=== PATIENT | female | born 1960 | race Hispanic/Latino ===

== ENCOUNTER 2016-06-08 08:41 | Emergency (ER) | payer OTHER ==
[~2016-06-08 08:41] MED LIST: /ACETCOD2T PO; /INSU7030 SC; ACET50TA PO; ALBU83IN INH; ALLE25CA OR; APIDINJ SC; ATIV0.5T OR; CLIN300C PO; COLA50CA3 PO; COMBVENT INH; CYCL10TA PO; DOXY100C PO; FIOR1CAP PO; FIORICET OR; HYDR10T PO; INSUH10VL SC; INSULANT SC; LEVA750T PO; METF500T4 OR; NORCOBULK PO; PAXI20TA OR; PERC7.5T12 PO; PRED10TA PO; PRED20TA PO; REME15TA PO; SING10TA32 PO; TUSS1CAP5 PO; TYLE325T5 PO; XOPE0.632 IN; XOPEAER INH; ZANT150T OR; ZYRT10CA PO; atarax PO
[2016-06-08] MEDS ORDERED: METOCLOPRAMIDE INJ 10MG/2ML VIAL (J2765) As Ordered ONE (09:33)
[2016-06-08] MEDS ORDERED: diphenhydrAMINE INJ 50MG/ML VIAL (J1200) As Ordered ONE (09:33)
--- NOTE | 2016-06-08 10:32 | EDDOCDS ---
Physician Documentation [facility] Name: Gill Tuttle Age: 55 yrs Sex: Female : 1960 Arrival Date: 06/08/2016 Time: 08:41 Bed I5 / M5 Private MD: Portillo Laguna MD Disposition: 06/08/16 10:26 Patient has left against medical advice. 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 - Patients states they are going to Home/Self Care. - Condition is Stable. - Discharge Instructions: AMA, General Headache Without Cause, [id number]. Medication Reconciliation, Local Pharmacy Hours form. Follow up: Portillo Laguna; When: Call to arrange an appointment; Reason: Further diagnostic work-up, Recheck today's complaints, Continuance of care. - Problem is an acute exacerbation. - Symptoms are unchanged. Historical: - Allergies: Aspirin (Rash); Augmentin (Hives); Biaxin (Upset stomach); D.H.E.45 (Rash); Depakote (Hives); Dilaudid (anxious); Epinephrine (irregular heart beat); Imitrex (Hives); IV Dye (Hives); Lipitor (Pancreatitis); PENICILLINS (Hives); sudaphed (palpitation); Toradol (Hives); Tramadol HCl (Hives); Zinc Oxide (Hives); Reglan (vertigo); - Home Meds: 1. apedra sliding scale Unknown before meals 8 units at 0430 2. Atarax 25 mg Oral tab tid prn (Last dose: 06/08/2016 04:30) 3. Benadryl 25 mg Oral cap as needed 4. Combivent 18-103 mcg/actuation Inhl aero 2 puffs twice a day 5. Lantus 38 units Sub-Q nightly 6. ProAir HFA 90 mcg/actuation inhalation HFAA 2 puffs prn 7. Xanax 0.25 mg Oral tab bedtime and as needed (Last dose: Unknown) 8. Zofran (as hydrochloride) 4 mg Oral tab every 8 hours prn (Last dose: 06/08/2016 04:30) 9. Tylenol 325 mg Oral tab 1 tab prn (Last dose: 06/08/2016 04:30) 10. Restasis 0.05 % ophthalmic dpet 1 drop 2 times per day - PMHx: Asthma; Diabetes - IDDM: controlled; Migraine Headaches; Gallstone Pancreatitis; - PSHx: ; Tubal ligation; Cholecystectomy; Biopsy, Breast- Left; - Social history: Smoking status: Patient states former smoker of tobacco. No barriers to communication noted, The patient speaks fluent Scottish. - Family history: Not pertinent. - : The pt / caregiver states he / she is not on anticoagulants. Home medication list is obtained from the patient. - Exposure Risk Screening:: None identified. 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 3 in. (160.02 cm) (R); Pain 8/10; 08:58 Body Mass Index 22.14 (56.70 kg, 160.02 cm) jjr MDM: 09:25 Financial registration complete. lg 09:28 Metoclopramide 10 mg IM once ordered. btw 09:28 diphenhydrAMINE 50 mg IM once ordered. btw Administered Medications: 09:36 Not Given (Patient Refused): Metoclopramide 10 mg IM once srm 10:28 Not Given (per PA): diphenhydrAMINE 50 mg IM once srm Signatures: Josi Sharif RN RN srm Ganter, LoriLee, Claudio Snyder lg Zahra Ma RN RN jjr Wolfenden, Brandon, CINTIA PA btw MTDD
--- NOTE | 2016-06-08 10:32 | EDDOCDS ---
Nurse's Notes [facility] Name: Gill Tuttle Age: 55 yrs Sex: Female : 1960 Arrival Date: 06/08/2016 Time: 08:41 Bed I5 / M5 Private MD: Portillo Laguna MD Diagnosis: Other headache syndromes-chronic, without neurological deficits Presentation: 06/08 08:54 Presenting complaint: Patient states: QUINTERO increasing in severity over past 2 days. This jjr patient has no additional risk factors. Adult Sepsis Screening: The patient does not have new or worsening altered mentation. Patient's respiratory rate is less than 22. Systolic blood pressure is greater than 100. Patient has a qSOFA score of 0- Negative Sepsis Screen. Suicide/Homicide risk assessment- the patient denies having any suicidal and/or homicidal ideations and does not present with any other emotional, behavioral or mental health complaints. Status: The patient is a dependent. Transition of care: patient was not received from another setting of care. 08:54 Acuity: KELLY Level 3 jjr 08:54 Method Of Arrival: Walkin/Carried/Asstd jjr Triage Assessment: 09:01 Headache History: This patient has a history of headaches and the character of this jjr headache is like all previous headaches. General: Appears in no apparent distress. Pain: Pain currently is 8 out of 10 on a pain scale. Pain began 2-3 days ago Also complains of nausea, photophobia. Pain: Location: right side of the back of head, right temporal area and right occipital area. HIV screening NA for this visit Offered previously. Neurological: No deficits noted. Reports headache. 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 apedra sliding scale Unknown before meals 8 units at 0430 2. Atarax 25 mg Oral tab tid prn (Last dose: 06/08/2016 04:30) 3. Benadryl 25 mg Oral cap as needed 4. Combivent 18-103 mcg/actuation Inhl aero 2 puffs twice a day 5. Lantus 38 units Sub-Q nightly 6. ProAir HFA 90 mcg/actuation inhalation HFAA 2 puffs prn 7. Xanax 0.25 mg Oral tab bedtime and as needed (Last dose: Unknown) 8. Zofran (as hydrochloride) 4 mg Oral tab every 8 hours prn (Last dose: 06/08/2016 04:30) 9. Tylenol 325 mg Oral tab 1 tab prn (Last dose: 06/08/2016 04:30) 10. Restasis 0.05 % ophthalmic dpet 1 drop 2 times per day - PMHx: Asthma; Diabetes - IDDM: controlled; Migraine Headaches; Gallstone Pancreatitis; - PSHx: ; Tubal ligation; Cholecystectomy; Biopsy, Breast- Left; - Social history: Smoking status: Patient states former smoker of tobacco. No barriers to communication noted, The patient speaks fluent Tamazight. - Family history: Not pertinent. - : The pt / caregiver states he / she is not on anticoagulants. Home medication list is obtained from the patient. - Exposure Risk Screening:: None identified. Assessment: 09:37 General: Appears in no apparent distress, Behavior is appropriate for age, cooperative. srm General: pt informs nurse that she cant take reglan due to it gives her vertigo. B Braulio CHAMBERLAIN aware. states she can take fiorcet - CINTIA aware. Neurological: Level of Consciousness is awake, alert, Oriented to person, place, time. Respiratory: No deficits noted. GI: No deficits noted. 09:47 General: per PA hold benadryl until he speaks with PMD. srm 10:28 General: pt signed out AMA- pt states i dont know why we have to consult with him ( her srm PMD) because he never wants to give her anything. pt. angry when leaving ED. with pt. Vital Signs: 08:58 BP 132 / 88; Pulse 96; Resp 18; Temp 97.8(O); Pulse Ox 100% on R/A; Weight 56.7 kg (R); jjr Height 5 ft. 3 in. (160.02 cm) (R); Pain 8/10; 08:58 Body Mass Index 22.14 (56.70 kg, 160.02 cm) [facility] Vitals: 08:58 Log In Time: June 08, 2016 at 08:41. jr ED Course: 08:43 Patient visited by Jessika Diaz Reg. lg 08:43 Portillo Laguna is Private Physician. lg 08:43 Patient moved to Waiting lg 08:55 Triage Initiated jjr 09:02 Patient moved to I5 / M5 jjr 09:21 Kenton Ramsey PA is PHCP. btw 09:21 Shweta Presley MD is Attending Physician. btw 09:21 Patient visited by Kenton Ramsey PA. btw 09:39 Patient visited by Josi Sharif RN. srm 09:42 Patient visited by Josi Sharif, SOLO. srm 10:24 Portillo Laguna is Referral Physician. btw 10:30 The patient / caregiver is instructed regarding the plan of care and ED course. srm Accompanied by Significant Other, Patient has correct armband on for positive identification. 10:30 No IV's were initiated during this patient's visit. No procedures done that require srm assistance. Administered Medications: 09:36 Not Given (Patient Refused): Metoclopramide 10 mg IM once srm 10:28 Not Given (per PA): diphenhydrAMINE 50 mg IM once srm Order Results: There are currently no results for this order. Outcome: 10:26 Patient left against medical advice. btw 10:30 Discharge Assessment: Patient awake, alert and oriented x 3. No cognitive and/or srm functional deficits noted. Patient verbalized understanding of disposition instructions. patient administered narcotics - no. The following High Risk Discharge criteria are identified: Yes, pt left AMA while waiting for her PMD to call PA. The patient is leaving AMA: AMA form signed, Notification of AMA status is made to the charge nurse, the marriage and family social worker, the ED attending physician. Condition: unchanged. No special radiology studies were completed. Property sent home with patient. 10:31 Patient left the ED. srm Signatures: Josi Sharif, RN Jessika Seo, Zahra Oviedo lg, RN RN Kenton Molina PA PA btw MTDD
--- NOTE | 2016-06-10 11:32 | EDDOCDS ---
Nurse's Notes [facility] Name: Gill Tuttle Age: 55 yrs Sex: Female : 1960 Arrival Date: 06/08/2016 Time: 08:41 Bed I5 / M5 Private MD: Portillo Laguna MD Diagnosis: Other headache syndromes-chronic, without neurological deficits Presentation: 06/08 08:54 Presenting complaint: Patient states: QUINTERO increasing in severity over past 2 days. This jjr patient has no additional risk factors. Adult Sepsis Screening: The patient does not have new or worsening altered mentation. Patient's respiratory rate is less than 22. Systolic blood pressure is greater than 100. Patient has a qSOFA score of 0- Negative Sepsis Screen. Suicide/Homicide risk assessment- the patient denies having any suicidal and/or homicidal ideations and does not present with any other emotional, behavioral or mental health complaints. Status: The patient is a dependent. Transition of care: patient was not received from another setting of care. 08:54 Acuity: KELLY Level 3 jjr 08:54 Method Of Arrival: Walkin/Carried/Asstd jjr Triage Assessment: 09:01 Headache History: This patient has a history of headaches and the character of this jjr headache is like all previous headaches. General: Appears in no apparent distress. Pain: Pain currently is 8 out of 10 on a pain scale. Pain began 2-3 days ago Also complains of nausea, photophobia. Pain: Location: right side of the back of head, right temporal area and right occipital area. HIV screening NA for this visit Offered previously. Neurological: No deficits noted. Reports headache. 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 apedra sliding scale Unknown before meals 8 units at 0430 2. Atarax 25 mg Oral tab tid prn (Last dose: 06/08/2016 04:30) 3. Benadryl 25 mg Oral cap as needed 4. Combivent 18-103 mcg/actuation Inhl aero 2 puffs twice a day 5. Lantus 38 units Sub-Q nightly 6. ProAir HFA 90 mcg/actuation inhalation HFAA 2 puffs prn 7. Xanax 0.25 mg Oral tab bedtime and as needed (Last dose: Unknown) 8. Zofran (as hydrochloride) 4 mg Oral tab every 8 hours prn (Last dose: 06/08/2016 04:30) 9. Tylenol 325 mg Oral tab 1 tab prn (Last dose: 06/08/2016 04:30) 10. Restasis 0.05 % ophthalmic dpet 1 drop 2 times per day - PMHx: Asthma; Diabetes - IDDM: controlled; Migraine Headaches; Gallstone Pancreatitis; - PSHx: ; Tubal ligation; Cholecystectomy; Biopsy, Breast- Left; - Social history: Smoking status: Patient states former smoker of tobacco. No barriers to communication noted, The patient speaks fluent Hebrew. - Family history: Not pertinent. - : The pt / caregiver states he / she is not on anticoagulants. Home medication list is obtained from the patient. - Exposure Risk Screening:: None identified. Assessment: 09:37 General: Appears in no apparent distress, Behavior is appropriate for age, cooperative. srm General: pt informs nurse that she cant take reglan due to it gives her vertigo. B Braulio CHAMBERLAIN aware. states she can take fiorcet - CINTIA aware. Neurological: Level of Consciousness is awake, alert, Oriented to person, place, time. Respiratory: No deficits noted. GI: No deficits noted. 09:47 General: per PA hold benadryl until he speaks with PMD. srm 10:28 General: pt signed out AMA- pt states i dont know why we have to consult with him ( her srm PMD) because he never wants to give her anything. pt. angry when leaving ED. with pt. Social Work Consult: 10:51 LWBS/AMA AMA: Patient is refusing further stabilizing treatment at [facility], although ac offered treatment regardless of method of payment or ability to pay. Patient is aware that this action is being undertaken against the advice of the medical staff at [facility]. Pt. has capacity to understand the potential consequences of this choice. pt did notify ED staff. Patient / guardian did sign Refusal of Services form. Pt left before being seen by PSA. Vital Signs: 08:58 BP 132 / 88; Pulse 96; Resp 18; Temp 97.8(O); Pulse Ox 100% on R/A; Weight 56.7 kg (R); jjr Height 5 ft. 3 in. (160.02 cm) (R); Pain 8/10; 08:58 Body Mass Index 22.14 (56.70 kg, 160.02 cm) [facility] Vitals: 08:58 Log In Time: June 08, 2016 at 08:41. [facility] ED Course: 08:43 Patient visited by Jessika Diaz Reg. lg 08:43 Portillo Laguna is Private Physician. lg 08:43 Patient moved to Waiting lg 08:55 Triage Initiated jjr 09:02 Patient moved to I5 / M5 jjr 09:21 Kenton Ramsey PA is PHCP. btw 09:21 Shweta Presley MD is Attending Physician. btw 09:21 Patient visited by Kenton Ramsey PA. btw 09:39 Patient visited by Josi Sharif, RN. srm 09:42 Patient visited by Josi Sharif, RN. srm 10:24 Portillo Laguna is Referral Physician. btw 10:30 The patient / caregiver is instructed regarding the plan of care and ED course. srm Accompanied by Significant Other, Patient has correct armband on for positive identification. 10:30 No IV's were initiated during this patient's visit. No procedures done that require srm assistance. 10:54 Patient name changed from Gill\S\\S\Parag\S\ to Gill\S\ \S\Parag. EDMS 10:55 [facility] Payment Agreement was scanned into [employer] and attached to record. lg 14:33 Refusal of Services was scanned into [employer] and attached to record. gb 14:34 T-Sheet-- Draft Copy was scanned into [employer] and attached to record. gb Administered Medications: 09:36 Not Given (Patient Refused): Metoclopramide 10 mg IM once srm 10:28 Not Given (per PA): diphenhydrAMINE 50 mg IM once srm Attachments: 14:33 Refusal of Services gb Order Results: There are currently no results for this order. Outcome: 10:26 Patient left against medical advice. btw 10:30 Discharge Assessment: Patient awake, alert and oriented x 3. No cognitive and/or srm functional deficits noted. Patient verbalized understanding of disposition instructions. patient administered narcotics - no. The following High Risk Discharge criteria are identified: Yes, pt left AMA while waiting for her PMD to call PA. The patient is leaving AMA: AMA form signed, Notification of AMA status is made to the charge nurse, the social sciences department chair, the ED attending physician. Condition: unchanged. No special radiology studies were completed. Property sent home with patient. 10:31 Patient left the ED. srm Signatures: Dispatcher [employer] EDMS Josi Sharif, RN RN Mihai Herrera, JOHN PSA Vida Kaye, Reg Reg gb Jessika Diaz, Reg Reg lg Zahra Ma, RN RN Kenton Molina PA PA btw Chart Complete MTDD
--- NOTE | 2016-06-10 11:32 | EDDOCDS ---
Physician Documentation [facility] Name: Gill Tuttle Age: 55 yrs Sex: Female : 1960 Arrival Date: 06/08/2016 Time: 08:41 Bed I5 / M5 Private MD: Portillo Laguna MD Disposition: 06/08/16 10:26 Patient has left against medical advice. 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 - Patients states they are going to Home/Self Care. - Condition is Stable. - Discharge Instructions: AMA, General Headache Without Cause, [id number]. Medication Reconciliation, Local Pharmacy Hours form. Follow up: Portillo Laguna; When: Call to arrange an appointment; Reason: Further diagnostic work-up, Recheck today's complaints, Continuance of care. - Problem is an acute exacerbation. - Symptoms are unchanged. Historical: - Allergies: Aspirin (Rash); Augmentin (Hives); Biaxin (Upset stomach); D.H.E.45 (Rash); Depakote (Hives); Dilaudid (anxious); Epinephrine (irregular heart beat); Imitrex (Hives); IV Dye (Hives); Lipitor (Pancreatitis); PENICILLINS (Hives); sudaphed (palpitation); Toradol (Hives); Tramadol HCl (Hives); Zinc Oxide (Hives); Reglan (vertigo); - Home Meds: 1. apedra sliding scale Unknown before meals 8 units at 0430 2. Atarax 25 mg Oral tab tid prn (Last dose: 06/08/2016 04:30) 3. Benadryl 25 mg Oral cap as needed 4. Combivent 18-103 mcg/actuation Inhl aero 2 puffs twice a day 5. Lantus 38 units Sub-Q nightly 6. ProAir HFA 90 mcg/actuation inhalation HFAA 2 puffs prn 7. Xanax 0.25 mg Oral tab bedtime and as needed (Last dose: Unknown) 8. Zofran (as hydrochloride) 4 mg Oral tab every 8 hours prn (Last dose: 06/08/2016 04:30) 9. Tylenol 325 mg Oral tab 1 tab prn (Last dose: 06/08/2016 04:30) 10. Restasis 0.05 % ophthalmic dpet 1 drop 2 times per day - PMHx: Asthma; Diabetes - IDDM: controlled; Migraine Headaches; Gallstone Pancreatitis; - PSHx: ; Tubal ligation; Cholecystectomy; Biopsy, Breast- Left; - Social history: Smoking status: Patient states former smoker of tobacco. No barriers to communication noted, The patient speaks fluent Macedonian. - Family history: Not pertinent. - : The pt / caregiver states he / she is not on anticoagulants. Home medication list is obtained from the patient. - Exposure Risk Screening:: None identified. 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 3 in. (160.02 cm) (R); Pain 8/10; 08:58 Body Mass Index 22.14 (56.70 kg, 160.02 cm) jjr MDM: 09:25 Financial registration complete. lg 09:28 Metoclopramide 10 mg IM once ordered. btw 09:28 diphenhydrAMINE 50 mg IM once ordered. btw 10:00 Special discussion: I discussed with the patient their frequent requests for pain btw medications. Instructions have been given, that in the best interests of the patient, further pain Rx's must come from the patient's PCP or a custom motorcycle painter. ED course: Discussed with Patient that, given her frequent utilization of the Emergency Department for her chronic pain refusal of my offered treatment and stated allergy to multiple medications, that I wanted to consult with her PCP prior to offering a different solution for her pain. I mentioned to patient that it is important to coordinate care in order to obtain appropriate follow up and to ensure that they deem the care appropriate based on her history and underlying medical problems. Pt verbalized understanding but noted her dissatisfaction with this and stated "My primary doc is an asshole and he never gives me anything. You guys always give me 'the good stuff' and that works." . 10:55 [facility] Payment Agreement was scanned into [employer] and attached to record. lg 14:33 Refusal of Services was scanned into [employer] and attached to record. gb 14:34 T-Sheet-- Draft Copy was scanned into [employer] and attached to record. gb Administered Medications: 09:36 Not Given (Patient Refused): Metoclopramide 10 mg IM once srm 10:28 Not Given (per PA): diphenhydrAMINE 50 mg IM once srm Signatures: Josi Sharif RN RN srm Vida Ramirez, Reg Reg gb Jessika Diaz, Reg Reg lg Zahra Ma RN RN jjr Wolfenden, Brandon, PA PA btw The chart was reviewed and I authenticate all verbal orders and agree with the evaluation and treatment provided.Attachments: 10:55 [facility] Payment Agreement lg 14:34 T-Sheet-- Draft Copy gb Chart Complete MTDD
--- NOTE | 2016-06-10 11:32 | EDDOCDS ---
Physician Documentation [facility] Name: Gill Tuttle Age: 55 yrs Sex: Female : 1960 Arrival Date: 06/08/2016 Time: 08:41 Bed I5 / M5 Private MD: Portillo Laguna MD Disposition: 06/08/16 10:26 Patient has left against medical advice. 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 - Patients states they are going to Home/Self Care. - Condition is Stable. - Discharge Instructions: AMA, General Headache Without Cause, [id number]. Medication Reconciliation, Local Pharmacy Hours form. Follow up: Portillo Laguna; When: Call to arrange an appointment; Reason: Further diagnostic work-up, Recheck today's complaints, Continuance of care. - Problem is an acute exacerbation. - Symptoms are unchanged. Historical: - Allergies: Aspirin (Rash); Augmentin (Hives); Biaxin (Upset stomach); D.H.E.45 (Rash); Depakote (Hives); Dilaudid (anxious); Epinephrine (irregular heart beat); Imitrex (Hives); IV Dye (Hives); Lipitor (Pancreatitis); PENICILLINS (Hives); sudaphed (palpitation); Toradol (Hives); Tramadol HCl (Hives); Zinc Oxide (Hives); Reglan (vertigo); - Home Meds: 1. apedra sliding scale Unknown before meals 8 units at 0430 2. Atarax 25 mg Oral tab tid prn (Last dose: 06/08/2016 04:30) 3. Benadryl 25 mg Oral cap as needed 4. Combivent 18-103 mcg/actuation Inhl aero 2 puffs twice a day 5. Lantus 38 units Sub-Q nightly 6. ProAir HFA 90 mcg/actuation inhalation HFAA 2 puffs prn 7. Xanax 0.25 mg Oral tab bedtime and as needed (Last dose: Unknown) 8. Zofran (as hydrochloride) 4 mg Oral tab every 8 hours prn (Last dose: 06/08/2016 04:30) 9. Tylenol 325 mg Oral tab 1 tab prn (Last dose: 06/08/2016 04:30) 10. Restasis 0.05 % ophthalmic dpet 1 drop 2 times per day - PMHx: Asthma; Diabetes - IDDM: controlled; Migraine Headaches; Gallstone Pancreatitis; - PSHx: ; Tubal ligation; Cholecystectomy; Biopsy, Breast- Left; - Social history: Smoking status: Patient states former smoker of tobacco. No barriers to communication noted, The patient speaks fluent Bruneian. - Family history: Not pertinent. - : The pt / caregiver states he / she is not on anticoagulants. Home medication list is obtained from the patient. - Exposure Risk Screening:: None identified. 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 3 in. (160.02 cm) (R); Pain 8/10; 08:58 Body Mass Index 22.14 (56.70 kg, 160.02 cm) jjr MDM: 09:25 Financial registration complete. lg 09:28 Metoclopramide 10 mg IM once ordered. btw 09:28 diphenhydrAMINE 50 mg IM once ordered. btw 10:00 Special discussion: I discussed with the patient their frequent requests for pain btw medications. Instructions have been given, that in the best interests of the patient, further pain Rx's must come from the patient's PCP or a painter interior finish. ED course: Discussed with Patient that, given her frequent utilization of the Emergency Department for her chronic pain refusal of my offered treatment and stated allergy to multiple medications, that I wanted to consult with her PCP prior to offering a different solution for her pain. I mentioned to patient that it is important to coordinate care in order to obtain appropriate follow up and to ensure that they deem the care appropriate based on her history and underlying medical problems. Pt verbalized understanding but noted her dissatisfaction with this and stated "My primary doc is an asshole and he never gives me anything. You guys always give me 'the good stuff' and that works." . 10:55 [facility] Payment Agreement was scanned into [employer] and attached to record. lg 14:33 Refusal of Services was scanned into [employer] and attached to record. gb 14:34 T-Sheet-- Draft Copy was scanned into [employer] and attached to record. gb Administered Medications: 09:36 Not Given (Patient Refused): Metoclopramide 10 mg IM once srm 10:28 Not Given (per PA): diphenhydrAMINE 50 mg IM once srm Signatures: Josi Sharif RN RN srm Vida Ramirez, Reg Reg gb Jessika Diaz, Reg Reg lg Zahra Ma RN RN jjr Wolfenden, Brandon, PA PA btw The chart was reviewed and I authenticate all verbal orders and agree with the evaluation and treatment provided.Attachments: 10:55 [facility] Payment Agreement lg 14:34 T-Sheet-- Draft Copy gb Chart Complete MTDD
== END 2016-06-08 10:23 | disposition left against medical advice (07) ==
LOC: M ED 08:41
DX: R51 Headache (principal); J45.909 Unspecified asthma, uncomplicated; E10.9 Type 1 diabetes mellitus without complications; Z87.891 Personal history of nicotine dependence; Z79.4 Long term (current) use of insulin; Z79.899 Other long term (current) drug therapy; Z88.0 Allergy status to penicillin; Z88.1 Allergy status to other antibiotic agents; Z88.5 Allergy status to narcotic agent; Z88.6 Allergy status to analgesic agent; Z88.8 Allergy status to other drugs, medicaments and biological substances; Z91.041 Radiographic dye allergy status
CPT/HCPCS: 99281; J1200; J2765

== ENCOUNTER 2016-06-15 19:29 | Emergency (ER) | payer OTHER ==
[2016-06-15] MEDS ORDERED: ONDANSETRON 4MG/2ML VIAL (J2405) As Ordered ONE (20:00)
[2016-06-15] MEDS ORDERED: diphenhydrAMINE INJ 50MG/ML VIAL (J1200) As Ordered ONE (20:00)
[2016-06-15] MEDS ORDERED: dexameTHASONE 4 MG/ML 1ML VIAL (J1100) As Ordered ONE (20:00)
--- NOTE | 2016-06-15 21:28 | EDDOCDS ---
Physician Documentation [facility] Name: Gill Tuttle Age: 55 yrs Sex: Female : 1960 Arrival Date: 06/15/2016 Time: 19:29 Bed I3 / M3 Private MD: ROE Disposition: 06/15/16 21:10 Patient has left against medical advice. Impression: Headache. - Patients states they are going to Home/Self Care. - Condition is Stable. - Discharge Instructions: Migraine Headache. Medication Reconciliation, Local Pharmacy Hours form. Follow up: ROE; When: Tomorrow; Reason: Recheck today's complaints, Continuance of care. Follow up: Emergency Department; When: As needed; Reason: Worsening of conditions. - Problem is new. - Symptoms are unchanged. - Notes: DR CARRILLO WAS CONSULTED REGARDING YOUR CARE, HE RECOMMENDED ZONISAMIDE AND YOUR HAVE DECLINED TO TAKE THE MEDICATION. PLEASE FOLLOW UP WITH YOUR DOCTOR TOMORROW, RETURN TO THE ER IF THE SYMPTOMS WORSEN OR BECOME CONCERNING Historical: - Allergies: Aspirin (Rash); Augmentin (Hives); Biaxin (Upset stomach); D.H.E.45 (Rash); Depakote (Hives); Dilaudid (anxious); Epinephrine (irregular heart beat); Imitrex (Hives); IV Dye (Hives); Lipitor (Pancreatitis); PENICILLINS (Hives); Reglan (Vertigo); sudaphed (palpitation); Toradol (Hives); Tramadol HCl (Hives); Zinc Oxide (Hives); - Home Meds: 1. apedra sliding scale Unknown before meals 8 units at 0430 2. Atarax 25 mg Oral tab tid prn 3. Benadryl 25 mg Oral cap as needed 4. Combivent 18-103 mcg/actuation Inhl aero 2 puffs twice a day 5. Lantus 38 units Sub-Q nightly 6. ProAir HFA 90 mcg/actuation inhalation HFAA 2 puffs prn 7. Restasis 0.05 % ophthalmic dpet 1 drop 2 times per day 8. Tylenol 325 mg Oral tab 1 tab prn 9. Xanax 0.25 mg Oral tab bedtime and as needed 10. Zofran (as hydrochloride) 4 mg Oral tab every 8 hours prn - PMHx: Asthma; Diabetes - IDDM: controlled; Gallstone Pancreatitis; Migraine Headaches; - PSHx: ; Tubal ligation; Cholecystectomy; Biopsy, Breast- Left; - Social history: Smoking status: No barriers to communication noted, The patient speaks fluent Wolof, Speaks appropriately for age, Smoking status: Patient states was never smoker of tobacco. - : The pt / caregiver states he / she is not on anticoagulants. Home medication list is obtained from the patient. - Exposure Risk Screening:: None identified. 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 3 in. (160.02 cm); Pain 9/10; 21:25 BP 172 / 94; Pulse 86; Resp 18; slm 19:30 Body Mass Index 22.14 (56.70 kg, 160.02 cm) jl MDM: 19:47 Ondansetron 4 mg IVP once ordered. ck7 19:47 diphenhydrAMINE 50 mg IVP once ordered. ck7 19:47 Dexamethasone 8 mg IV at bolus once ordered. ck7 19:47 IV Saline Lock ordered. ck7 19:47 NS 0.9% 1000 ml IV at bolus once ordered. ck7 20:04 Financial registration complete. kf3 20:19 [facility] Payment Agreement was scanned into [employer] and attached to record. kf3 Administered Medications: 20:15 Drug: NS 0.9% 1000 ml [sodium chloride 0.9 % intravenous solution] Route: IV; Rate: mcp bolus; Site: left forearm; 21:25 Follow up: IV Status: Completed infusion; IV Intake: 800ml slm 20:16 Drug: Ondansetron 4 mg [ondansetron HCl 2 mg/mL intravenous solution (2 mL)] Route: mcp IVP; Site: left forearm; 20:16 Drug: diphenhydrAMINE 50 mg [diphenhydramine 50 mg/mL injection solution (1 mL)] Route: mcp IVP; Site: left forearm; 20:16 Drug: Dexamethasone 8 mg [dexamethasone 4 mg/mL injection solution] Route: IV; Rate: mcp bolus; Site: left forearm; Signatures: Viv Bowen RN RN jo3 Peter Harrell, Reg Reg kf3 Tucker Quinonez RPA-C RPA-Cck7 Adamaris Hubbard LPN LPN slm Peters, Mary RN mcp The chart was reviewed and I authenticate all verbal orders and agree with the evaluation and treatment provided.Attachments: 20:19 [facility] Payment Agreement kf3 MTDD
--- NOTE | 2016-06-15 21:28 | EDDOCDS ---
Nurse's Notes [facility] Name: Gill Tuttle Age: 55 yrs Sex: Female : 1960 Arrival Date: 06/15/2016 Time: 19:29 Bed I3 / M3 Private MD: ROE Diagnosis: Headache Presentation: 06/15 19:36 Presenting complaint: Patient states: Came a few days ago with migraine QUINTERO. Also has jo3 vomiting. QUINTERO has never resolved. This patient has no additional risk factors. Adult Sepsis Screening: The patient does not have new or worsening altered mentation. Patient's respiratory rate is less than 22. Systolic blood pressure is greater than 100. Patient has a qSOFA score of 0- Negative Sepsis Screen. Suicide/Homicide risk assessment- the patient denies having any suicidal and/or homicidal ideations and does not present with any other emotional, behavioral or mental health complaints. Status: The patient is a dependent. Transition of care: patient was not received from another setting of care. 19:36 Acuity: KELLY Level 3 jo3 19:36 Method Of Arrival: Walkin/Carried/Asstd jo3 Triage Assessment: 19:39 Headache History: This patient has a history of headaches and the character of this jo3 headache is like all previous headaches. General: Appears uncomfortable. Pain: Pain currently is 9 out of 10 on a pain scale. HIV screening NA for this visit Offered previously. Neurological: Level of Consciousness is awake, alert, Oriented to person, place, time. Respiratory: Airway is patent Respiratory effort is even, unlabored. Derm: Skin is pink, warm & dry. 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 apedra sliding scale Unknown before meals 8 units at 0430 2. Atarax 25 mg Oral tab tid prn 3. Benadryl 25 mg Oral cap as needed 4. Combivent 18-103 mcg/actuation Inhl aero 2 puffs twice a day 5. Lantus 38 units Sub-Q nightly 6. ProAir HFA 90 mcg/actuation inhalation HFAA 2 puffs prn 7. Restasis 0.05 % ophthalmic dpet 1 drop 2 times per day 8. Tylenol 325 mg Oral tab 1 tab prn 9. Xanax 0.25 mg Oral tab bedtime and as needed 10. Zofran (as hydrochloride) 4 mg Oral tab every 8 hours prn - PMHx: Asthma; Diabetes - IDDM: controlled; Gallstone Pancreatitis; Migraine Headaches; - PSHx: ; Tubal ligation; Cholecystectomy; Biopsy, Breast- Left; - Social history: Smoking status: No barriers to communication noted, The patient speaks fluent Montenegrin, Speaks appropriately for age, Smoking status: Patient states was never smoker of tobacco. - : The pt / caregiver states he / she is not on anticoagulants. Home medication list is obtained from the patient. - Exposure Risk Screening:: None identified. Screenin:17 Screening information is obtained from the patient. Fall risk: No risks identified. mcp Assistance ADL's: requires no assistance with activities of daily living. Abuse/DV Screen: The patient / caregiver reports he/she is: not in a situation that causes fear, pain or injury. Nutritional screening: No deficits noted. Advance Directives: There is no active DNR order. home support is adequate. Assessment: 20:17 General: Appears uncomfortable, Behavior is cooperative, crying. Pain: Location: head mcp Pain currently is 10 out of 10 on a pain scale. Neurological: No deficits noted. Respiratory: Airway is patent Respiratory effort is even, unlabored. Derm: Skin is pink, warm & dry. 20:18 General: Pt states that PCP won't prescribe Fioricet anymore. mcp 20:55 General: Appears uncomfortable, Behavior is cooperative, Pt states no improvement in mcp headache. 21:26 Reassessment: Patient states symptoms have not improved. General: Appears in no slm apparent distress, Behavior is cooperative, crying. Vital Signs: 19:30 BP 148 / 78; Pulse 105; Resp 18; Temp 98.4; Pulse Ox 100% ; Weight 56.7 kg; Height 5 [facility] ft. 3 in. (160.02 cm); Pain 9/10; 21:25 BP 172 / 94; Pulse 86; Resp 18; slm 19:30 Body Mass Index 22.14 (56.70 kg, 160.02 cm) [facility] Vitals: 19:30 Log In Time: June 15, 2016 at 19:30. [facility] ED Course: 19:30 Patient visited by Yasmin Hou Unit Clerk. jlm 19:30 ROE is Private Physician. jlm 19:30 Patient moved to Waiting jlm 19:32 Patient moved to Pre RCE jlm 19:37 Triage Initiated jo3 19:40 Patient visited by Viv Bowen RN. jo3 19:41 Patient moved to Triage 2 jo3 19:43 Tucker Quinonez RPA-C is [facility]. ck7 19:43 Yovani De La O DO is Attending Physician. ck7 19:43 Patient visited by Tucker Quinonez RPA-C. ck7 19:50 Patient moved to I3 / M3 km 20:17 Patient name changed from Gill\S\\S\Parag\S\ to Gill\S\ \S\Parag. EDMS 20:17 Patient visited by Tucker Quinonez RPA-C. ck7 20:17 Inserted saline lock: 20 gauge in left forearm The patient tolerated the procedure well.mcp 20:18 Patient visited by Apple Todd RN. mcp 20:18 The patient / caregiver is instructed regarding the plan of care and ED course. Patient mcp has correct armband on for positive identification. Bed in low position. Call light in reach. 20:19 [facility] Payment Agreement was scanned into [employer] and attached to record. kf3 20:52 Patient visited by Tucker Quinonez RPA-C. ck7 21:10 ROE is Referral Physician. ck7 21:27 Discontinued lock intact, bleeding controlled, pressure dressing applied, No slm redness/swelling at site. No procedures done that require assistance. 21:28 Patient visited by Adamaris Hubbard LPN. slm Administered Medications: 20:15 Drug: NS 0.9% 1000 ml [sodium chloride 0.9 % intravenous solution] Route: IV; Rate: mcp bolus; Site: left forearm; 21:25 Follow up: IV Status: Completed infusion; IV Intake: 800ml slm 20:16 Drug: Ondansetron 4 mg [ondansetron HCl 2 mg/mL intravenous solution (2 mL)] Route: mcp IVP; Site: left forearm; 20:16 Drug: diphenhydrAMINE 50 mg [diphenhydramine 50 mg/mL injection solution (1 mL)] Route: mcp IVP; Site: left forearm; 20:16 Drug: Dexamethasone 8 mg [dexamethasone 4 mg/mL injection solution] Route: IV; Rate: mcp bolus; Site: left forearm; Intake: 21:25 IV: 800.00ml; Total: 800.00ml. slm Order Results: There are currently no results for this order. Outcome: 21:10 Patient left against medical advice. ck7 21:27 Discharge Assessment: Patient awake, alert and oriented x 3. No cognitive and/or slm functional deficits noted. Patient verbalized understanding of disposition instructions. patient administered narcotics - no. The following High Risk Discharge criteria are identified: Yes, ama. The patient is leaving AMA: AMA form signed, Notification of AMA status is made to the charge nurse, the manager social, the ED attending physician. Condition: stable. Discharge instructions given to patient, Instructed on discharge instructions, follow up and referral plans. Demonstrated understanding of instructions, Pt was receptive of discharge instructions/ teaching. No special radiology studies were completed. Property :Personal belongings accompany Pt. 21:28 Patient left the ED. m Signatures: Dispatcher [employer] EDMS Vanessa Loera, RN RN kmApple Mckeon RN RN mcp Helmerci, Jennifer, RN RN jo3 Peter Harrell, Reg Reg kf3 Tucker Quinonez, SHANTI-C RPA-Cck7 Adamaris Hubbard LPN LPN slm Mitchell, Jessie, Superintendent [employer] Unit [facility] MTDD
--- NOTE | 2016-06-17 22:29 | EDDOCDS ---
Physician Documentation [facility] Name: Gill Tuttle Age: 55 yrs Sex: Female : 1960 Arrival Date: 06/15/2016 Time: 19:29 Bed I3 / M3 Private MD: ROE Disposition: 06/15/16 21:10 Patient has left against medical advice. Impression: Headache. - Patients states they are going to Home/Self Care. - Condition is Stable. - Discharge Instructions: Migraine Headache. Medication Reconciliation, Local Pharmacy Hours form. Follow up: ROE; When: Tomorrow; Reason: Recheck today's complaints, Continuance of care. Follow up: Emergency Department; When: As needed; Reason: Worsening of conditions. - Problem is new. - Symptoms are unchanged. - Notes: DR CARRILLO WAS CONSULTED REGARDING YOUR CARE, HE RECOMMENDED ZONISAMIDE AND YOUR HAVE DECLINED TO TAKE THE MEDICATION. PLEASE FOLLOW UP WITH YOUR DOCTOR TOMORROW, RETURN TO THE ER IF THE SYMPTOMS WORSEN OR BECOME CONCERNING Historical: - Allergies: Aspirin (Rash); Augmentin (Hives); Biaxin (Upset stomach); D.H.E.45 (Rash); Depakote (Hives); Dilaudid (anxious); Epinephrine (irregular heart beat); Imitrex (Hives); IV Dye (Hives); Lipitor (Pancreatitis); PENICILLINS (Hives); Reglan (Vertigo); sudaphed (palpitation); Toradol (Hives); Tramadol HCl (Hives); Zinc Oxide (Hives); - Home Meds: 1. apedra sliding scale Unknown before meals 8 units at 0430 2. Atarax 25 mg Oral tab tid prn 3. Benadryl 25 mg Oral cap as needed 4. Combivent 18-103 mcg/actuation Inhl aero 2 puffs twice a day 5. Lantus 38 units Sub-Q nightly 6. ProAir HFA 90 mcg/actuation inhalation HFAA 2 puffs prn 7. Restasis 0.05 % ophthalmic dpet 1 drop 2 times per day 8. Tylenol 325 mg Oral tab 1 tab prn 9. Xanax 0.25 mg Oral tab bedtime and as needed 10. Zofran (as hydrochloride) 4 mg Oral tab every 8 hours prn - PMHx: Asthma; Diabetes - IDDM: controlled; Gallstone Pancreatitis; Migraine Headaches; - PSHx: ; Tubal ligation; Cholecystectomy; Biopsy, Breast- Left; - Social history: Smoking status: No barriers to communication noted, The patient speaks fluent Italian, Speaks appropriately for age, Smoking status: Patient states was never smoker of tobacco. - : The pt / caregiver states he / she is not on anticoagulants. Home medication list is obtained from the patient. - Exposure Risk Screening:: None identified. 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 3 in. (160.02 cm); Pain 9/10; 21:25 BP 172 / 94; Pulse 86; Resp 18; slm 19:30 Body Mass Index 22.14 (56.70 kg, 160.02 cm) [facility] MDM: 19:47 Ondansetron 4 mg IVP once ordered. ck7 19:47 diphenhydrAMINE 50 mg IVP once ordered. ck7 19:47 Dexamethasone 8 mg IV at bolus once ordered. ck7 19:47 IV Saline Lock ordered. ck7 19:47 NS 0.9% 1000 ml IV at bolus once ordered. ck7 20:04 Financial registration complete. kf3 20:19 [facility] Payment Agreement was scanned into [employer] and attached to record. kf3 06/16 08:56 T-Sheet-- Draft Copy was scanned into [employer] and attached to record. [facility] Administered Medications: 06/15 20:15 Drug: NS 0.9% 1000 ml [sodium chloride 0.9 % intravenous solution] Route: IV; Rate: mcp bolus; Site: left forearm; 21:25 Follow up: IV Status: Completed infusion; IV Intake: 800ml [facility] 20:16 Drug: Ondansetron 4 mg [ondansetron HCl 2 mg/mL intravenous solution (2 mL)] Route: mcp IVP; Site: left forearm; 20:16 Drug: diphenhydrAMINE 50 mg [diphenhydramine 50 mg/mL injection solution (1 mL)] Route: mcp IVP; Site: left forearm; 20:16 Drug: Dexamethasone 8 mg [dexamethasone 4 mg/mL injection solution] Route: IV; Rate: mcp bolus; Site: left forearm; Signatures: Viv Bowen RN RN jo3 Peter Harrell, Reg Reg kf3 Tucker Quinonez, ARTIC RPA-Cck7 Adamaris Hubbard LPN LPN slm Hoffert, Sarah seh Peters, Mary RN mcp The chart was reviewed and I authenticate all verbal orders and agree with the evaluation and treatment provided.Attachments: 20:19 [facility] Payment Agreement kf3 06/16 08:56 T-Sheet-- Draft Copy [facility] Chart Complete MTDD
--- NOTE | 2016-06-17 22:29 | EDDOCDS ---
Physician Documentation [facility] Name: Gill Tuttle Age: 55 yrs Sex: Female : 1960 Arrival Date: 06/15/2016 Time: 19:29 Bed I3 / M3 Private MD: ROE Disposition: 06/15/16 21:10 Patient has left against medical advice. Impression: Headache. - Patients states they are going to Home/Self Care. - Condition is Stable. - Discharge Instructions: Migraine Headache. Medication Reconciliation, Local Pharmacy Hours form. Follow up: ROE; When: Tomorrow; Reason: Recheck today's complaints, Continuance of care. Follow up: Emergency Department; When: As needed; Reason: Worsening of conditions. - Problem is new. - Symptoms are unchanged. - Notes: DR CARRILLO WAS CONSULTED REGARDING YOUR CARE, HE RECOMMENDED ZONISAMIDE AND YOUR HAVE DECLINED TO TAKE THE MEDICATION. PLEASE FOLLOW UP WITH YOUR DOCTOR TOMORROW, RETURN TO THE ER IF THE SYMPTOMS WORSEN OR BECOME CONCERNING Historical: - Allergies: Aspirin (Rash); Augmentin (Hives); Biaxin (Upset stomach); D.H.E.45 (Rash); Depakote (Hives); Dilaudid (anxious); Epinephrine (irregular heart beat); Imitrex (Hives); IV Dye (Hives); Lipitor (Pancreatitis); PENICILLINS (Hives); Reglan (Vertigo); sudaphed (palpitation); Toradol (Hives); Tramadol HCl (Hives); Zinc Oxide (Hives); - Home Meds: 1. apedra sliding scale Unknown before meals 8 units at 0430 2. Atarax 25 mg Oral tab tid prn 3. Benadryl 25 mg Oral cap as needed 4. Combivent 18-103 mcg/actuation Inhl aero 2 puffs twice a day 5. Lantus 38 units Sub-Q nightly 6. ProAir HFA 90 mcg/actuation inhalation HFAA 2 puffs prn 7. Restasis 0.05 % ophthalmic dpet 1 drop 2 times per day 8. Tylenol 325 mg Oral tab 1 tab prn 9. Xanax 0.25 mg Oral tab bedtime and as needed 10. Zofran (as hydrochloride) 4 mg Oral tab every 8 hours prn - PMHx: Asthma; Diabetes - IDDM: controlled; Gallstone Pancreatitis; Migraine Headaches; - PSHx: ; Tubal ligation; Cholecystectomy; Biopsy, Breast- Left; - Social history: Smoking status: No barriers to communication noted, The patient speaks fluent Arabic, Speaks appropriately for age, Smoking status: Patient states was never smoker of tobacco. - : The pt / caregiver states he / she is not on anticoagulants. Home medication list is obtained from the patient. - Exposure Risk Screening:: None identified. 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 3 in. (160.02 cm); Pain 9/10; 21:25 BP 172 / 94; Pulse 86; Resp 18; slm 19:30 Body Mass Index 22.14 (56.70 kg, 160.02 cm) [facility] MDM: 19:47 Ondansetron 4 mg IVP once ordered. ck7 19:47 diphenhydrAMINE 50 mg IVP once ordered. ck7 19:47 Dexamethasone 8 mg IV at bolus once ordered. ck7 19:47 IV Saline Lock ordered. ck7 19:47 NS 0.9% 1000 ml IV at bolus once ordered. ck7 20:04 Financial registration complete. kf3 20:19 [facility] Payment Agreement was scanned into [employer] and attached to record. kf3 06/16 08:56 T-Sheet-- Draft Copy was scanned into [employer] and attached to record. [facility] Administered Medications: 06/15 20:15 Drug: NS 0.9% 1000 ml [sodium chloride 0.9 % intravenous solution] Route: IV; Rate: mcp bolus; Site: left forearm; 21:25 Follow up: IV Status: Completed infusion; IV Intake: 800ml [facility] 20:16 Drug: Ondansetron 4 mg [ondansetron HCl 2 mg/mL intravenous solution (2 mL)] Route: mcp IVP; Site: left forearm; 20:16 Drug: diphenhydrAMINE 50 mg [diphenhydramine 50 mg/mL injection solution (1 mL)] Route: mcp IVP; Site: left forearm; 20:16 Drug: Dexamethasone 8 mg [dexamethasone 4 mg/mL injection solution] Route: IV; Rate: mcp bolus; Site: left forearm; Signatures: Viv Bowen RN RN jo3 Peter Harrell, Reg Reg kf3 Tucker Quinonez, ARTIC RPA-Cck7 Adamaris Hubbard LPN LPN slm Hoffert, Sarah seh Peters, Mary RN mcp The chart was reviewed and I authenticate all verbal orders and agree with the evaluation and treatment provided.Attachments: 20:19 [facility] Payment Agreement kf3 06/16 08:56 T-Sheet-- Draft Copy [facility] Chart Complete MTDD
--- NOTE | 2016-06-17 22:29 | EDDOCDS ---
Nurse's Notes [facility] Name: Gill Tuttle Age: 55 yrs Sex: Female : 1960 Arrival Date: 06/15/2016 Time: 19:29 Bed I3 / M3 Private MD: ROE Diagnosis: Headache Presentation: 06/15 19:36 Presenting complaint: Patient states: Came a few days ago with migraine QUINTERO. Also has jo3 vomiting. QUINTERO has never resolved. This patient has no additional risk factors. Adult Sepsis Screening: The patient does not have new or worsening altered mentation. Patient's respiratory rate is less than 22. Systolic blood pressure is greater than 100. Patient has a qSOFA score of 0- Negative Sepsis Screen. Suicide/Homicide risk assessment- the patient denies having any suicidal and/or homicidal ideations and does not present with any other emotional, behavioral or mental health complaints. Status: The patient is a dependent. Transition of care: patient was not received from another setting of care. 19:36 Acuity: KELLY Level 3 jo3 19:36 Method Of Arrival: Walkin/Carried/Asstd jo3 Triage Assessment: 19:39 Headache History: This patient has a history of headaches and the character of this jo3 headache is like all previous headaches. General: Appears uncomfortable. Pain: Pain currently is 9 out of 10 on a pain scale. HIV screening NA for this visit Offered previously. Neurological: Level of Consciousness is awake, alert, Oriented to person, place, time. Respiratory: Airway is patent Respiratory effort is even, unlabored. Derm: Skin is pink, warm & dry. 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 apedra sliding scale Unknown before meals 8 units at 0430 2. Atarax 25 mg Oral tab tid prn 3. Benadryl 25 mg Oral cap as needed 4. Combivent 18-103 mcg/actuation Inhl aero 2 puffs twice a day 5. Lantus 38 units Sub-Q nightly 6. ProAir HFA 90 mcg/actuation inhalation HFAA 2 puffs prn 7. Restasis 0.05 % ophthalmic dpet 1 drop 2 times per day 8. Tylenol 325 mg Oral tab 1 tab prn 9. Xanax 0.25 mg Oral tab bedtime and as needed 10. Zofran (as hydrochloride) 4 mg Oral tab every 8 hours prn - PMHx: Asthma; Diabetes - IDDM: controlled; Gallstone Pancreatitis; Migraine Headaches; - PSHx: ; Tubal ligation; Cholecystectomy; Biopsy, Breast- Left; - Social history: Smoking status: No barriers to communication noted, The patient speaks fluent Australian, Speaks appropriately for age, Smoking status: Patient states was never smoker of tobacco. - : The pt / caregiver states he / she is not on anticoagulants. Home medication list is obtained from the patient. - Exposure Risk Screening:: None identified. Screenin:17 Screening information is obtained from the patient. Fall risk: No risks identified. mcp Assistance ADL's: requires no assistance with activities of daily living. Abuse/DV Screen: The patient / caregiver reports he/she is: not in a situation that causes fear, pain or injury. Nutritional screening: No deficits noted. Advance Directives: There is no active DNR order. home support is adequate. Assessment: 20:17 General: Appears uncomfortable, Behavior is cooperative, crying. Pain: Location: head mcp Pain currently is 10 out of 10 on a pain scale. Neurological: No deficits noted. Respiratory: Airway is patent Respiratory effort is even, unlabored. Derm: Skin is pink, warm & dry. 20:18 General: Pt states that PCP won't prescribe Fioricet anymore. mcp 20:55 General: Appears uncomfortable, Behavior is cooperative, Pt states no improvement in mcp headache. 21:26 Reassessment: Patient states symptoms have not improved. General: Appears in no slm apparent distress, Behavior is cooperative, crying. Social Work Consult: 21:29 LWBS/AMA AMA: Patient is refusing further stabilizing treatment at [facility], although cl offered treatment regardless of method of payment or ability to pay. Patient is aware that this action is being undertaken against the advice of the medical staff at [facility]. Pt. has capacity to understand the potential consequences of this choice. pt did notify ED staff. Patient / guardian did sign Refusal of Services form. Pt left before being seen by PSA. Vital Signs: 19:30 BP 148 / 78; Pulse 105; Resp 18; Temp 98.4; Pulse Ox 100% ; Weight 56.7 kg; Height 5 [facility] ft. 3 in. (160.02 cm); Pain 9/10; 21:25 BP 172 / 94; Pulse 86; Resp 18; slm 19:30 Body Mass Index 22.14 (56.70 kg, 160.02 cm) [facility] Vitals: 19:30 Log In Time: June 15, 2016 at 19:30. [facility] ED Course: 19:30 Patient visited by Yasmin Hou Unit Clerk. [facility] 19:30 ROE is Private Physician. jlm 19:30 Patient moved to Waiting jlm 19:32 Patient moved to Pre RCE jlm 19:37 Triage Initiated jo3 19:40 Patient visited by Viv Bowen RN. jo3 19:41 Patient moved to Triage 2 jo3 19:43 Tucker Quinonez RPA-C [facility] ck7 19:43 Yovani De La O DO is Attending Physician. ck7 19:43 Patient visited by Tucker Quinonez RPA-C. ck7 19:50 Patient moved to I3 / M3 kmg1 20:17 Patient name changed from Gill\S\\S\Parag\S\ to Gill\S\ \S\Parag. EDMS 20:17 Patient visited by Tucker Quinonez RPA-C. ck7 20:17 Inserted saline lock: 20 gauge in left forearm The patient tolerated the procedure well.mcp 20:18 Patient visited by Apple Todd, SOLO. mcp 20:18 The patient / caregiver is instructed regarding the plan of care and ED course. Patient mcp has correct armband on for positive identification. Bed in low position. Call light in reach. 20:19 [facility] [place] Agreement was scanned into [employer] and attached to record. kf3 20:52 Patient visited by Tucker Quinonez RPA-C. ck7 21:10 ROE is Referral Physician. ck7 21:27 Discontinued lock intact, bleeding controlled, pressure dressing applied, No slm redness/swelling at site. No procedures done that require assistance. 21:28 Patient visited by Adamaris Hubbard LPN. [facility] 06/16 08:56 T-Sheet-- Draft Copy was scanned into [employer] and attached to record. [facility] Administered Medications: 06/15 20:15 Drug: NS 0.9% 1000 ml [sodium chloride 0.9 % intravenous solution] Route: IV; Rate: mcp bolus; Site: left forearm; 21:25 Follow up: IV Status: Completed infusion; IV Intake: 800ml slm 20:16 Drug: Ondansetron 4 mg [ondansetron HCl 2 mg/mL intravenous solution (2 mL)] Route: mcp IVP; Site: left forearm; 20:16 Drug: diphenhydrAMINE 50 mg [diphenhydramine 50 mg/mL injection solution (1 mL)] Route: mcp IVP; Site: left forearm; 20:16 Drug: Dexamethasone 8 mg [dexamethasone 4 mg/mL injection solution] Route: IV; Rate: mcp bolus; Site: left forearm; Intake: 21:25 IV: 800.00ml; Total: 800.00ml. slm Order Results: There are currently no results for this order. Outcome: 21:10 Patient left against medical advice. ck7 21:27 Discharge Assessment: Patient awake, alert and oriented x 3. No cognitive and/or slm functional deficits noted. Patient verbalized understanding of disposition instructions. patient administered narcotics - no. The following High Risk Discharge criteria are identified: Yes, ama. The patient is leaving AMA: AMA form signed, Notification of AMA status is made to the charge nurse, the geriatric social worker, the ED attending physician. Condition: stable. Discharge instructions given to patient, Instructed on discharge instructions, follow up and referral plans. Demonstrated understanding of instructions, Pt was receptive of discharge instructions/ teaching. No special radiology studies were completed. Property :Personal belongings accompany Pt. 21:28 Patient left the ED. slm Signatures: Dispatcher [facility] EDMS Vanessa Loera RN RN kmg1 Apple Todd RN RN Santhosh Hinds, PSA PSA cl Viv Bowen,RN RN jo3 Peter Harrell, Reg Reg kf3 Tucker Quinonez, RPA-C RPA-Cck7 Adamaris Hubbard,TRACK SUPERVISOR TRACK SUPERVISOR Yasmin Dobbins, Shift Mechanic Unit ariadne Aguilar, Amanda delaney Chart Complete MTDD
== END 2016-06-15 21:28 | disposition left against medical advice (07) ==
LOC: M ED 19:29
DX: G43.909 Migraine, unspecified, not intractable, without status migrainosus (principal); R11.10 Vomiting, unspecified; E11.9 Type 2 diabetes mellitus without complications; J45.909 Unspecified asthma, uncomplicated; Z79.899 Other long term (current) drug therapy; Z79.4 Long term (current) use of insulin; Z88.0 Allergy status to penicillin; Z88.1 Allergy status to other antibiotic agents; Z88.5 Allergy status to narcotic agent; Z88.8 Allergy status to other drugs, medicaments and biological substances
CPT/HCPCS: 96361; 96374; 96375; 99283; J1100; J1200; J2405

== ENCOUNTER 2016-08-08 13:31 | Emergency (ER) | payer OTHER ==
[~2016-08-08] VITALS: Ht 160 cm; Wt 60.8 kg
[2016-08-08] MEDS ORDERED: INSULANT SC (13:39)
[2016-08-08] MEDS ORDERED: HYDR25T PO (13:39)
[2016-08-08] MEDS ORDERED: XANA0.25 PO (13:41)
[2016-08-08] MEDS ORDERED: BENA25CA4 PO (13:41)
[2016-08-08] MEDS ORDERED: PROA1AER INH (13:41)
[2016-08-08] MEDS ORDERED: MORPHINE 4 MG/ML 1ML SYRINGE IM ONE (14:15)
[2016-08-08] MEDS ORDERED: CYCL10TA PO (14:48)
[2016-08-08] MEDS ORDERED: ACET30TAB PO (14:48)
[2016-08-08 14:53] VITALS: BP 148/71
== END 2016-08-08 14:57 | disposition home or self-care (01) ==
LOC: M ED 14:01
DX: M54.31 Sciatica, right side (principal)

== ENCOUNTER 2016-09-29 21:33 | Emergency (ER) | payer OTHER ==
[~2016-09-29] VITALS: Ht 160 cm; Wt 59.9 kg
[~2016-09-29 21:33] MED LIST changes: +ACET30TAB PO; +BENA25CA4 PO; +HYDR25T PO; +PROA1AER INH; +XANA0.25 PO
[2016-09-29] MEDS ORDERED: REST0.05 OU (21:47)
[2016-09-29] MEDS ORDERED: ACETAMINOPH W/CODEINE #3 TAB UD PO ONE (23:30)
[2016-09-29] MEDS ORDERED: ACETAMINOPHEN/CODEINE 12.5 ML UDC PO ONE (23:30)
[2016-09-29] MEDS ORDERED: ACET30TAB PO (23:37)
[2016-09-29 23:49] VITALS: BP 138/83
--- NOTE | 2016-09-30 09:11 | REP ---
PA and lateral chest: Comparison is 11/15/2015. The lung russo are clear. The cardiac size is normal The ying, mediastinum, and bony thorax are unremarkable. Impression: Negative PA and lateral chest. There is no interval change. Signed by Esa Pereira MD 09/30/2016 09:01 A
== END 2016-09-30 00:21 | disposition home or self-care (01) ==
LOC: M ED 22:56
DX: J30.2 Other seasonal allergic rhinitis (principal); R05 Cough; E11.9 Type 2 diabetes mellitus without complications; F41.9 Anxiety disorder, unspecified; F32.9 Major depressive disorder, single episode, unspecified; Z90.49 Acquired absence of other specified parts of digestive tract; Z79.4 Long term (current) use of insulin; Z79.899 Other long term (current) drug therapy; Z88.0 Allergy status to penicillin; Z88.1 Allergy status to other antibiotic agents; Z88.6 Allergy status to analgesic agent; Z88.8 Allergy status to other drugs, medicaments and biological substances; Z88.7 Allergy status to serum and vaccine; Z91.040 Latex allergy status; Z91.041 Radiographic dye allergy status

== ENCOUNTER 2016-10-14 12:00 | Emergency (ER) | payer OTHER ==
[~2016-10-14] VITALS: Ht 160 cm; Wt 60.4 kg
[~2016-10-14 12:00] MED LIST changes: +HYDR-3363 PO; +HYDR-643 PO; -HYDR10T PO; -HYDR25T PO; -LEVA750T PO; +LEVA750T7 PO; -PROA1AER INH; +PROAAER10 INH; +REST0.05 OU
[2016-10-14] MEDS ORDERED: APIDINJ IJ (12:30)
[2016-10-14] MEDS ORDERED: ACET30TAB PO (14:27)
[2016-10-14] MEDS ORDERED: CYCL10TA PO (14:27)
--- NOTE | 2016-10-14 14:30 | REP ---
CT THORACIC SPINE WITHOUT CONTRAST: 10/14/2016 CLINICAL HISTORY: Back pain. COMPARISON: Chest x-ray 09/29/2016, thoracic spine x-ray 04/03/2016 TECHNIQUE: Axial images through the thoracic spine with soft tissue and bone windows for each slice level and both coronal and sagittal bone window reconstructions provided. FINDINGS: Coronal reconstructions show very gentle dextroconvex curve of the lower thoracic spine. Pedicles, spinous and transverse processes, posterior rib articulations are all unremarkable. Visualized posterior ribs are intact throughout. There is no effusion. Paraspinal hematoma or pleural plaques. Some minimal linear atelectatic change deep sulcus of the right lower lobe noted. On the sagittal reconstructions, there is no acute compression deformity, disc space heights are preserved. A few tiny anterior osteophytes are noted at most levels which I would regard as normal. Posterior elements show the spinous processes, lamina, facets, transverse processes, pedicles to be intact. The posterior margins of the vertebral bodies align well on the sagittal reconstructions. No compression deformity of destructive lesion. IMPRESSION: 1. Some minor dextroconvex curvature lower thoracic spine as on the previous x-ray of the T-spine in March 2016. I see no compression deformity or destructive lesion, posterior element abnormality, spinal or foraminal stenosis. Posterior elements are unremarkable. Disc space heights are normal. Tiny anterior osteophytes are normal for this age group in the thoracic spine. Signed by Nicolas Smith MD 10/14/2016 07:39 P
[2016-10-14 14:33] VITALS: BP 129/79
== END 2016-10-14 14:39 | disposition home or self-care (01) ==
LOC: M ED 13:53
DX: M54.6 Pain in thoracic spine (principal); G89.29 Other chronic pain
CPT/HCPCS: 72128; 96372; 99282; J3360

== ENCOUNTER 2016-11-15 21:38 | Emergency (ER) | payer OTHER ==
[~2016-11-15] VITALS: Ht 160 cm; Wt 60.4 kg
[2016-11-15 21:38] VITALS: BP 121/76
[~2016-11-15 21:38] MED LIST changes: +APIDINJ IJ
[2016-11-16] MEDS: methylPREDNISolone INJ 125 MG/2 ML VIAL (J2930) IM ONE ×2 (00:45→00:56)
--- NOTE | 2016-11-16 00:58 | REP ---
Clinical: Cough and shortness of breath . Comparison: 09/29/2016 . Technique: PA and lateral. Findings: The mediastinum and cardiac silhouette are normal. The lung russo are clear and without acute consolidation, effusion, or pneumothorax. The skeletal structures are intact and normal. Impression: 1. No acute cardiopulmonary process. Signed by Alfa Harris MD 11/16/2016 12:50 A
[2016-11-16] MEDS ORDERED: IPRATROPIUM 0.5MG/ALBUTEROL 2.5MG INH SOL UD 3ML (DUONEB)(J7620) NEB ONE (01:00)
[2016-11-16] MEDS ORDERED: PRED20TA PO (02:00)
== END 2016-11-16 02:06 | disposition home or self-care (01) ==
LOC: M ED 21:38
DX: J45.909 Unspecified asthma, uncomplicated (principal); E11.9 Type 2 diabetes mellitus without complications; F32.9 Major depressive disorder, single episode, unspecified; Z87.891 Personal history of nicotine dependence
CPT/HCPCS: 71020; 94640; 96372; 99282; J2930

== ENCOUNTER 2016-11-24 00:58 | Emergency (ER) | payer OTHER ==
[~2016-11-24] VITALS: Ht 160 cm; Wt 60.0 kg
[2016-11-24] MEDS ORDERED: PRED20TA PO (03:24)
[2016-11-24] MEDS ORDERED: ALBU83IN INH (03:27)
[2016-11-24] MEDS ORDERED: predniSONE 20 MG TAB PO ONE (03:30)
[2016-11-24] MEDS ORDERED: IPRATROPIUM 0.5MG/ALBUTEROL 2.5MG INH SOL UD 3ML (DUONEB)(J7620) NEB ONE (03:30)
[2016-11-24 03:43] VITALS: BP 137/73
== END 2016-11-24 03:57 | disposition home or self-care (01) ==
LOC: M ED 00:58
DX: J45.909 Unspecified asthma, uncomplicated (principal); Z87.891 Personal history of nicotine dependence

== ENCOUNTER 2017-01-05 00:15 | Emergency (ER) | payer OTHER ==
[~2017-01-05] VITALS: Ht 160 cm; Wt 60.0 kg
[2017-01-05] MEDS ORDERED: LEVA1TAB2 PO (00:49)
[2017-01-05] MEDS ORDERED: ONDANSETRON 4 MG ORAL DISINTEGRATING TAB (S0181) PO ONE (02:00)
[2017-01-05] MEDS ORDERED: MORPHINE 4 MG/ML 1ML SYRINGE IM ONE (02:00)
[2017-01-05 02:26] VITALS: BP 170/79
== END 2017-01-05 02:27 | disposition home or self-care (01) ==
LOC: M ED 00:15
DX: G43.909 Migraine, unspecified, not intractable, without status migrainosus (principal); J45.909 Unspecified asthma, uncomplicated; I25.10 Atherosclerotic heart disease of native coronary artery without angina pectoris; E11.9 Type 2 diabetes mellitus without complications; F41.9 Anxiety disorder, unspecified; I25.2 Old myocardial infarction; Z79.899 Other long term (current) drug therapy; Z79.4 Long term (current) use of insulin; Z88.8 Allergy status to other drugs, medicaments and biological substances; Z88.1 Allergy status to other antibiotic agents; Z88.7 Allergy status to serum and vaccine; Z91.041 Radiographic dye allergy status; Z88.5 Allergy status to narcotic agent; Z88.0 Allergy status to penicillin; Z91.040 Latex allergy status; Z91.013 Allergy to seafood

== ENCOUNTER 2017-01-13 22:04 | Emergency (ER) | payer OTHER ==
[~2017-01-13] VITALS: Ht 160 cm; Wt 60.0 kg
[~2017-01-13 22:04] MED LIST changes: +LEVA1TAB2 PO
[2017-01-14] MEDS ORDERED: ONDANSETRON 4MG/2ML VIAL (J2405) IV ONE (02:00)
[2017-01-14] MEDS ORDERED: MORPHINE 4 MG/ML 1ML SYRINGE IV ONE (02:00)
[2017-01-14] MEDS ORDERED: NS 1,000 ML IV ONE (02:00)
[2017-01-14] MEDS ORDERED: FIOR1CAP PO (02:57)
[2017-01-14 03:02] VITALS: BP 147/83
== END 2017-01-14 03:07 | disposition home or self-care (01) ==
LOC: M ED 22:04
DX: G43.909 Migraine, unspecified, not intractable, without status migrainosus (principal); E11.9 Type 2 diabetes mellitus without complications; J45.909 Unspecified asthma, uncomplicated; E78.5 Hyperlipidemia, unspecified; F41.9 Anxiety disorder, unspecified; F33.9 Major depressive disorder, recurrent, unspecified; M54.9 Dorsalgia, unspecified; I25.2 Old myocardial infarction; Z79.899 Other long term (current) drug therapy; Z79.4 Long term (current) use of insulin; Z88.2 Allergy status to sulfonamides; Z88.5 Allergy status to narcotic agent; Z88.7 Allergy status to serum and vaccine; Z88.8 Allergy status to other drugs, medicaments and biological substances; Z91.013 Allergy to seafood; Z91.040 Latex allergy status; Z91.041 Radiographic dye allergy status; Z87.891 Personal history of nicotine dependence
CPT/HCPCS: 96374; 96375; 99283; J2405

== ENCOUNTER 2017-03-05 00:46 | Emergency (ER) | payer OTHER ==
[~2017-03-05] VITALS: Ht 160 cm; Wt 59.5 kg
[2017-03-05] MEDS ORDERED: TYLE325C PO (01:09)
[2017-03-05] MEDS ORDERED: ONDANSETRON 4MG/2ML VIAL (J2405) IV ONE (02:15)
[2017-03-05] MEDS: MORPHINE 4 MG/ML 1ML SYRINGE IV PRN ×2 (03:16→04:39)
[2017-03-05 03:17] LABS: BASO # 0.1 10^3/uL (0.0-0.2); BASO % 0.6 % (0.0-1.0); EOS # 0.2 10^3/uL (0.0-0.50); EOS % 2.6 % (0.0-3.0); IMMATURE GRANULOCYTE % 0.2 % (0-0); LYMPH # 4.1 10^3/uL (1.5-4.5); LYMPH % 47.8 % (24.0-44.0); MEAN CORPUSCULAR HEMOGLOBIN 30.1 pg (27.0-33.0); MEAN CORPUSCULAR HGB CONC 33.5 g/dl (32.0-36.5); MONO # 0.6 10^3/uL (0.0-0.8); MONO % 6.9 % (0.0-5.0); NEUTROPHILS # 3.6 10^3/uL (1.8-7.7); NEUTROPHILS % 41.9 % (36.0-66.0); PLATELET COUNT, AUTOMATED 312 10^3/uL (150-450); RED CELL DISTRIBUTION WIDTH 12.7 % (11.5-14.5); WHITE BLOOD COUNT 8.5 10^3/uL (4.0-10.0)
[2017-03-05 03:32] LABS: ALBUMIN 3.4 GM/DL (3.2-5.2); ALBUMIN/GLOBULIN RATIO 1.06 (1.00-1.93); ALKALINE PHOSPHATASE 122 U/L (45-117); ALT/SGPT 18 U/L (12-78); ANION GAP 7 MEQ/L (8-16); AST/SGOT 15 U/L (7-37); BILIRUBIN,DIRECT < 0.1 MG/DL (0.0-0.2); BILIRUBIN,TOTAL 0.2 MG/DL (0.2-1.0); BLOOD UREA NITROGEN 18 MG/DL (7-18); CALCIUM LEVEL 8.4 MG/DL (8.5-10.1); CARBON DIOXIDE LEVEL 25 MEQ/L (21-32); CHLORIDE LEVEL 108 MEQ/L (98-107); CREATININE FOR GFR 0.76 MG/DL (0.55-1.02); GLOMERULAR FILTRATION RATE > 60.0 (>51); GLUCOSE, FASTING 143 MG/DL (70-105); POTASSIUM SERUM 5.1 MEQ/L (3.5-5.1); SODIUM LEVEL 140 MEQ/L (136-145); TOTAL PROTEIN 6.6 GM/DL (6.4-8.2)
--- NOTE | 2017-03-05 03:40 | REPUSA ---
CLINICAL HISTORY: Abdominal pain. TECHNIQUE: Multiple axial, sagittal and coronal CT images were obtained through the abdomen and pelvi s without administration of oral or IV contrast material. COMMENTS: Comparison to prior exam performed on 01/07/2016. Diffuse thickening of the small bowel loops. Moderate fecal stasis in the large bowel small prominent at the level of the cecum and ascending colo n. The liver is of uniform attenuation without mass or defect. There is no intra or extrahepatic biliary ductal dilatation. The spleen is normal. The gallbladder is surgically absent. The pancreas is of normal contour and attenuation characteristics. There is no evidence of adrenal ma ss. The kidneys are normal in size, shape and configuration. No renal or ureteral calculi are identified. There is no hydroureter or hydronephrosis. There is no evidence for appendicitis. There is no bowel wall thickening. No evidence for small or la rge bowel obstruction. There is no evidence of abdominal ascites or lymphadenopathy. There is no evidence of intrinsic or extrinsic bladder mass. There is no pelvic ascites or lymphadeno mervin. Images of the lung bases show no evidence of pleural or parenchymal mass. There are no pleural effusi ons. The bony structures are free of lytic or blastic lesions. IMPRESSION: Moderate amount of fecal residue in the large bowels. Diffusely thickened small bowels, underdistention versus mild inflammatory pathology. Thank you for your kind referral of this patient.
[2017-03-05] MEDS ORDERED: diphenhydrAMINE INJ 50MG/ML VIAL (J1200) IV ONE (04:45)
[2017-03-05] MEDS: METOCLOPRAMIDE INJ 10MG/2ML VIAL (J2765) IV ONE ×2 (04:45→04:53)
[2017-03-05] MEDS ORDERED: DICYCLOMINE 10 MG CAP PO ONE (04:45)
[2017-03-05] MEDS ORDERED: DEXTROSE 50% 50 ML SYRINGE IV STA (05:03)
[2017-03-05] MEDS ORDERED: BENT20TA PO (05:58)
[2017-03-05 06:07] VITALS: BP 123/65
--- NOTE | 2017-03-05 06:38 | ECGEPIP ---
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
== END 2017-03-05 06:08 | disposition home or self-care (01) ==
LOC: M ED 00:46
DX: R10.9 Unspecified abdominal pain (principal)
CPT/HCPCS: 36415; 74176; 80048; 80076; 82550; 82553; 83690; 85025; 87040; 93005; 93041; 96374; 96375; 96376; 99285; J1200; J2405

== ENCOUNTER 2017-04-03 14:19 | Emergency (ER) | payer OTHER ==
[~2017-04-03] VITALS: Ht 160 cm; Wt 60.0 kg
[~2017-04-03 14:19] MED LIST changes: +BENT20TA PO; +TYLE325C PO
--- NOTE | 2017-04-03 15:59 | REP ---
Chest x-ray: Two views. History: Cough. Comparison chest x-ray: November 16, 2016. Findings: The lungs are well inflated and remain clear. The pleural angles are sharp. Heart size is normal. Pulmonary vasculature is not increased. There is a mild dextroconvex curve in the upper lumbar spine as before. Impression: No active disease. Signed by Chucky Miller MD 04/03/2017 05:01 P
[2017-04-03] MEDS ORDERED: ACET30TAB PO (16:07)
[2017-04-03 16:10] VITALS: BP 128/85
== END 2017-04-03 16:35 | disposition home or self-care (01) ==
LOC: M ED 14:19
DX: J06.9 Acute upper respiratory infection, unspecified (principal); E11.9 Type 2 diabetes mellitus without complications; J45.909 Unspecified asthma, uncomplicated; F41.9 Anxiety disorder, unspecified; F33.9 Major depressive disorder, recurrent, unspecified; G43.909 Migraine, unspecified, not intractable, without status migrainosus; M54.9 Dorsalgia, unspecified; Z87.09 Personal history of other diseases of the respiratory system; Z79.4 Long term (current) use of insulin; Z79.899 Other long term (current) drug therapy; Z88.0 Allergy status to penicillin; Z88.1 Allergy status to other antibiotic agents; Z88.5 Allergy status to narcotic agent; Z88.7 Allergy status to serum and vaccine; Z88.8 Allergy status to other drugs, medicaments and biological substances; Z91.013 Allergy to seafood; Z91.040 Latex allergy status; Z91.041 Radiographic dye allergy status; Z87.891 Personal history of nicotine dependence

== ENCOUNTER 2017-06-05 15:52 | Emergency (ER) | payer OTHER ==
[2017-06-05] MEDS: ONDANSETRON 4MG/2ML VIAL (J2405) IV (17:04)
[2017-06-05] MEDS: NS 1,000 ML IV (17:04)
[2017-06-05] MEDS: MORPHINE 4 MG/ML 1ML VIAL (J2270) IV ×2 (17:04→18:42)
[2017-06-05 17:05] LABS: BASO # 0.1 10^3/uL (0.0-0.2); BASO % 0.8 % (0.0-1.0); EOS # 0.2 10^3/uL (0.0-0.50); EOS % 2.1 % (0.0-3.0); HEMATOCRIT 46.2 % (36.0-47.0); HEMOGLOBIN 16.1 g/dl (12.0-16.0); IMMATURE GRANULOCYTE % 0.3 % (0-3.0); LYMPH # 4.1 10^3/uL (1.5-4.5); LYMPH % 45.4 % (24.0-44.0); MEAN CORPUSCULAR HEMOGLOBIN 30.7 pg (27.0-33.0); MEAN CORPUSCULAR HGB CONC 34.8 g/dl (32.0-36.5); MONO # 0.7 10^3/uL (0.0-0.8); MONO % 8.1 % (0.0-5.0); NEUTROPHILS # 3.9 10^3/uL (1.8-7.7); NEUTROPHILS % 43.3 % (36.0-66.0); PLATELET COUNT, AUTOMATED 318 10^3/uL (150-450); RED BLOOD COUNT 5.25 10^6/uL (4.00-5.40)
[2017-06-05 17:31] LABS: BEDSIDE GLUCOSE 117 MG/DL (70-105)
[2017-06-05 17:42] LABS: BEDSIDE GLUCOSE 111 MG/DL (70-105)
[2017-06-05 17:43] LABS: ALBUMIN/GLOBULIN RATIO 1.21 (1.00-1.93); ALKALINE PHOSPHATASE 113 U/L (45-117); ALT/SGPT 17 U/L (12-78); ANION GAP 7 MEQ/L (8-16); AST/SGOT 10 U/L (7-37); BILIRUBIN,DIRECT < 0.1 MG/DL (0.0-0.2); BILIRUBIN,TOTAL 0.3 MG/DL (0.2-1.0); BLOOD UREA NITROGEN 15 MG/DL (7-18); CALCIUM LEVEL 8.9 MG/DL (8.5-10.1); CARBON DIOXIDE LEVEL 29 MEQ/L (21-32); CHLORIDE LEVEL 105 MEQ/L (98-107); CREATININE FOR GFR 0.65 MG/DL (0.55-1.30); GLOMERULAR FILTRATION RATE > 60.0 (>51); GLUCOSE, FASTING 112 MG/DL (70-100); LIPASE 63 U/L (73-393); POTASSIUM SERUM 3.9 MEQ/L (3.5-5.1); SODIUM LEVEL 141 MEQ/L (136-145); TOTAL PROTEIN 7.3 GM/DL (6.4-8.2)
[2017-06-05] MEDS: READI-CAT 2 PO ×2 (18:30→19:00)
== END 2017-06-05 21:59 | disposition home or self-care (01) ==
LOC: M ED 15:52
DX: K52.9 Noninfective gastroenteritis and colitis, unspecified (principal); E11.9 Type 2 diabetes mellitus without complications; J45.909 Unspecified asthma, uncomplicated; G43.909 Migraine, unspecified, not intractable, without status migrainosus; F41.9 Anxiety disorder, unspecified; Z79.4 Long term (current) use of insulin; Z79.899 Other long term (current) drug therapy; Z88.0 Allergy status to penicillin; Z88.1 Allergy status to other antibiotic agents; Z88.5 Allergy status to narcotic agent; Z88.7 Allergy status to serum and vaccine; Z88.8 Allergy status to other drugs, medicaments and biological substances; Z91.013 Allergy to seafood; Z91.041 Radiographic dye allergy status
CPT/HCPCS: J2270

== ENCOUNTER 2017-07-06 12:08 | Emergency (ER) | payer OTHER ==
[2017-07-06] MEDS: BENZONATATE 100 MG CAP PO (12:57)
[2017-07-06] MEDS: ALBUTEROL SULFATE 2.5 MG/0.5 ML INH NEB SOLN NEB (13:08)
[2017-07-06] MEDS: IPRATROPIUM 0.5MG/ALBUTEROL 2.5MG INH SOL UD 3ML (DUONEB)(J7620) NEB (13:08)
== END 2017-07-06 14:14 | disposition home or self-care (01) ==
LOC: M ED 12:08
DX: J45.901 Unspecified asthma with (acute) exacerbation (principal); J44.0 Chronic obstructive pulmonary disease with (acute) lower respiratory infection; E11.9 Type 2 diabetes mellitus without complications; Z79.4 Long term (current) use of insulin; Z79.899 Other long term (current) drug therapy; Z86.69 Personal history of other diseases of the nervous system and sense organs; Z87.19 Personal history of other diseases of the digestive system; Z91.041 Radiographic dye allergy status; Z88.0 Allergy status to penicillin; Z88.8 Allergy status to other drugs, medicaments and biological substances; Z88.7 Allergy status to serum and vaccine; Z88.5 Allergy status to narcotic agent; Z88.1 Allergy status to other antibiotic agents
CPT/HCPCS: 71046

== ENCOUNTER 2017-08-23 22:21 | Emergency (ER) | payer OTHER ==
[2017-08-23] MEDS: ACETAMINOPH W/CODEINE #3 TAB UD PO (23:03)
== END 2017-08-24 00:03 | disposition home or self-care (01) ==
LOC: M ED 08-24 00:03
DX: S89.91XA Unspecified injury of right lower leg, initial encounter (principal); X50.1XXA Overexertion from prolonged static or awkward postures, initial encounter; Y92.099 Unspecified place in other non-institutional residence as the place of occurrence of the external cause; Y93.9 Activity, unspecified; Y99.9 Unspecified external cause status; J45.909 Unspecified asthma, uncomplicated; G43.909 Migraine, unspecified, not intractable, without status migrainosus; J44.9 Chronic obstructive pulmonary disease, unspecified; F41.9 Anxiety disorder, unspecified; F32.9 Major depressive disorder, single episode, unspecified; Z87.440 Personal history of urinary (tract) infections; F17.200 Nicotine dependence, unspecified, uncomplicated; Z79.4 Long term (current) use of insulin; Z79.899 Other long term (current) drug therapy; Z88.0 Allergy status to penicillin; Z88.6 Allergy status to analgesic agent; Z88.1 Allergy status to other antibiotic agents; Z88.8 Allergy status to other drugs, medicaments and biological substances; Z88.7 Allergy status to serum and vaccine; Z91.040 Latex allergy status; Z91.041 Radiographic dye allergy status; Z91.013 Allergy to seafood; Z88.5 Allergy status to narcotic agent
CPT/HCPCS: 73564

== ENCOUNTER 2017-09-03 01:19 | Emergency (ER) | payer OTHER ==
[2017-09-03] MEDS: NS 500 ML IV (02:24)
[2017-09-03 02:32] LABS: BASO # 0.1 10^3/uL (0.0-0.2); EOS # 0.3 10^3/uL (0.0-0.50); EOS % 3.2 % (0.0-3.0); HEMATOCRIT 46.7 % (36.0-47.0); IMMATURE GRANULOCYTE % 0.1 % (0-3.0); LYMPH # 3.5 10^3/uL (1.5-4.5); LYMPH % 44.2 % (24.0-44.0); MEAN CORPUSCULAR HEMOGLOBIN 30.9 pg (27.0-33.0); MEAN CORPUSCULAR HGB CONC 34.3 g/dl (32.0-36.5); MEAN CORPUSCULAR VOLUME 90.3 fl (80.0-96.0); MONO # 0.6 10^3/uL (0.0-0.8); MONO % 7.3 % (0.0-5.0); NEUTROPHILS # 3.5 10^3/uL (1.8-7.7); NEUTROPHILS % 44.2 % (36.0-66.0); PLATELET COUNT, AUTOMATED 273 10^3/uL (150-450); RED BLOOD COUNT 5.17 10^6/uL (4.00-5.40); RED CELL DISTRIBUTION WIDTH 12.6 % (11.5-14.5); WHITE BLOOD COUNT 7.9 10^3/uL (4.0-10.0)
[2017-09-03 02:52] LABS: ALBUMIN 3.6 GM/DL (3.2-5.2); ALBUMIN/GLOBULIN RATIO 1.06 (1.00-1.93); ALKALINE PHOSPHATASE 124 U/L (45-117); ALT/SGPT 38 U/L (12-78); ANION GAP 4 MEQ/L (8-16); AST/SGOT 11 U/L (7-37); BILIRUBIN,DIRECT < 0.1 MG/DL (0.0-0.2); BILIRUBIN,TOTAL 0.2 MG/DL (0.2-1.0); BLOOD UREA NITROGEN 18 MG/DL (7-18); CALCIUM LEVEL 8.6 MG/DL (8.5-10.1); CARBON DIOXIDE LEVEL 30 MEQ/L (21-32); CHLORIDE LEVEL 109 MEQ/L (98-107); CREATININE FOR GFR 0.78 MG/DL (0.55-1.30); GLOMERULAR FILTRATION RATE > 60.0 (>51); GLUCOSE, FASTING 82 MG/DL (70-100); LIPASE 68 U/L (73-393); POTASSIUM SERUM 4.1 MEQ/L (3.5-5.1); SODIUM LEVEL 143 MEQ/L (136-145)
[2017-09-03] MEDS: ONDANSETRON 4 MG ORAL DISINTEGRATING TAB (Q0162 PER 1MG) PO (03:20)
[2017-09-03 03:31] LABS: APPEARANCE, URINE CLEAR (CLEAR); BACTERIA, URINE AUTO NEGATIVE (NEGATIVE); BILIRUBIN, URINE AUTO NEGATIVE (NEGATIVE); BLOOD, URINE BLOOD 1+ (NEGATIVE); COLOR, URINE YELLOW (YELLOW); GLUCOSE, URINE (UA) AUTO 3+ mg/dL (NEGATIVE); KETONE, URINE AUTO NEGATIVE (NEGATIVE); LEUKOCYTE ESTERASE, URINE AUTO 2+ (NEGATIVE); NITRITE, URINE AUTO NEGATIVE (NEGATIVE); PROTEIN, URINE AUTO NEGATIVE (NEGATIVE); RBC, URINE AUTO 5 /HPF (0-3); SPECIFIC GRAVITY URINE AUTO 1.024 (1.002-1.035); SQUAMOUS EPITHELIAL CELL UR AU 1 /HPF (0-6); UROBILINOGEN, URINE AUTO 0.2 mg/dL (0.0-2.0); WBC, URINE AUTO 20 /HPF (0-3)
[2017-09-03] MEDS: BACTRIM 160MG/800MG DS TAB PO (03:50)
[2017-09-03] MEDS: PHENAZOPYRIDINE 100 MG TAB PO (03:50)
== END 2017-09-03 03:55 | disposition home or self-care (01) ==
LOC: M ED 01:19
DX: J44.9 Chronic obstructive pulmonary disease, unspecified (principal); Z87.19 Personal history of other diseases of the digestive system; Z98.890 Other specified postprocedural states; Z91.041 Radiographic dye allergy status; Z88.0 Allergy status to penicillin; Z88.8 Allergy status to other drugs, medicaments and biological substances; Z88.7 Allergy status to serum and vaccine; Z91.013 Allergy to seafood; Z91.040 Latex allergy status; Z88.5 Allergy status to narcotic agent; Z88.1 Allergy status to other antibiotic agents; Z79.4 Long term (current) use of insulin; Z79.899 Other long term (current) drug therapy
CPT/HCPCS: Q0162

== ENCOUNTER 2017-10-31 00:29 | Emergency (ER) | payer OTHER ==
[2017-10-31 03:51] LABS: BEDSIDE GLUCOSE 136 MG/DL (70-105)
[2017-10-31] MEDS: NORCO, ANEXSIA 5/325MG TABLET (HYDROcodone/ACETAMINOPHEN) PO (04:36)
== END 2017-10-31 04:40 | disposition home or self-care (01) ==
LOC: M ED 00:29
DX: G43.909 Migraine, unspecified, not intractable, without status migrainosus (principal); I10 Essential (primary) hypertension; E11.9 Type 2 diabetes mellitus without complications; J45.909 Unspecified asthma, uncomplicated; Z91.041 Radiographic dye allergy status; Z88.0 Allergy status to penicillin; Z88.8 Allergy status to other drugs, medicaments and biological substances; Z88.7 Allergy status to serum and vaccine; Z88.6 Allergy status to analgesic agent; Z88.5 Allergy status to narcotic agent; Z91.040 Latex allergy status; Z91.013 Allergy to seafood; Z79.899 Other long term (current) drug therapy; Z79.4 Long term (current) use of insulin
CPT/HCPCS: 99283

== ENCOUNTER 2017-11-05 12:01 | Emergency (ER) | payer OTHER ==
[2017-11-05 14:51] LABS: BASO # 0.1 10^3/uL (0.0-0.2); BASO % 0.8 % (0.0-1.0); EOS # 0.3 10^3/uL (0.0-0.50); HEMATOCRIT 43.4 % (36.0-47.0); HEMOGLOBIN 15.3 g/dl (12.0-15.5); IMMATURE GRANULOCYTE % 0.1 % (0-3.0); LYMPH # 3.5 10^3/uL (1.5-4.5); LYMPH % 41.7 % (24.0-44.0); MEAN CORPUSCULAR HEMOGLOBIN 30.8 pg (27.0-33.0); MEAN CORPUSCULAR HGB CONC 35.3 g/dl (32.0-36.5); MEAN CORPUSCULAR VOLUME 87.3 fl (80.0-96.0); MONO # 0.7 10^3/uL (0.0-0.8); MONO % 7.9 % (0.0-5.0); NEUTROPHILS # 3.9 10^3/uL (1.8-7.7); NEUTROPHILS % 46.5 % (36.0-66.0); PLATELET COUNT, AUTOMATED 259 10^3/uL (150-450); RED BLOOD COUNT 4.97 10^6/uL (4.00-5.40); RED CELL DISTRIBUTION WIDTH 12.2 % (11.5-14.5); WHITE BLOOD COUNT 8.5 10^3/uL (4.0-10.0)
[2017-11-05] MEDS: ONDANSETRON 4MG/2ML VIAL (J2405) IV (14:51)
[2017-11-05] MEDS: NS 1,000 ML IV (14:52)
[2017-11-05] MEDS: MORPHINE 4 MG/ML 1ML VIAL/SYRINGE (J2270) IV (14:52)
[2017-11-05 15:17] LABS: ANION GAP 8 MEQ/L (8-16); BLOOD UREA NITROGEN 12 MG/DL (7-18); CALCIUM LEVEL 8.4 MG/DL (8.5-10.1); CARBON DIOXIDE LEVEL 25 MEQ/L (21-32); CHLORIDE LEVEL 109 MEQ/L (98-107); GLOMERULAR FILTRATION RATE > 60.0 (>51); GLUCOSE, FASTING 98 MG/DL (70-100); MAGNESIUM LEVEL 2.3 MG/DL (1.8-2.4); POTASSIUM SERUM 4.2 MEQ/L (3.5-5.1); SODIUM LEVEL 142 MEQ/L (136-145)
== END 2017-11-05 16:07 | disposition home or self-care (01) ==
LOC: M ED 12:01
DX: G43.909 Migraine, unspecified, not intractable, without status migrainosus (principal); E10.9 Type 1 diabetes mellitus without complications; F41.9 Anxiety disorder, unspecified; F32.9 Major depressive disorder, single episode, unspecified; I25.2 Old myocardial infarction; E78.5 Hyperlipidemia, unspecified; J45.909 Unspecified asthma, uncomplicated; M54.9 Dorsalgia, unspecified; N93.8 Other specified abnormal uterine and vaginal bleeding; Z87.19 Personal history of other diseases of the digestive system; M26.69 Other specified disorders of temporomandibular joint; Z87.891 Personal history of nicotine dependence; Z91.041 Radiographic dye allergy status; Z88.1 Allergy status to other antibiotic agents; Z88.6 Allergy status to analgesic agent; Z88.8 Allergy status to other drugs, medicaments and biological substances; Z88.7 Allergy status to serum and vaccine; Z88.4 Allergy status to anesthetic agent; Z88.5 Allergy status to narcotic agent; Z91.040 Latex allergy status; Z88.0 Allergy status to penicillin; Z88.2 Allergy status to sulfonamides; Z91.013 Allergy to seafood; Z79.899 Other long term (current) drug therapy
CPT/HCPCS: J2270

== ENCOUNTER 2017-12-10 23:15 | Emergency (ER) | payer OTHER ==
[2017-12-11] MEDS: LevoFLOXacin 500 MG TABLET PO (01:02)
[2017-12-11] MEDS: ACETAMINOPH W/CODEINE #3 TAB UD PO (01:06)
== END 2017-12-11 01:13 | disposition home or self-care (01) ==
LOC: M ED 23:15
DX: J44.1 Chronic obstructive pulmonary disease with (acute) exacerbation (principal); J06.9 Acute upper respiratory infection, unspecified; E11.9 Type 2 diabetes mellitus without complications; J45.909 Unspecified asthma, uncomplicated; I25.2 Old myocardial infarction; M54.9 Dorsalgia, unspecified; F41.9 Anxiety disorder, unspecified; F32.9 Major depressive disorder, single episode, unspecified; G43.909 Migraine, unspecified, not intractable, without status migrainosus; Z87.19 Personal history of other diseases of the digestive system; Z87.891 Personal history of nicotine dependence; Z91.041 Radiographic dye allergy status; Z88.6 Allergy status to analgesic agent; Z88.8 Allergy status to other drugs, medicaments and biological substances; Z88.7 Allergy status to serum and vaccine; Z88.0 Allergy status to penicillin; Z88.2 Allergy status to sulfonamides; Z88.5 Allergy status to narcotic agent; Z91.040 Latex allergy status; Z91.013 Allergy to seafood; Z79.899 Other long term (current) drug therapy; Z79.4 Long term (current) use of insulin
CPT/HCPCS: 71046

== ENCOUNTER 2017-12-26 18:37 | Emergency (ER) | payer OTHER ==
[2017-12-26 20:52] LABS: BASO % 0.5 % (0.0-1.0); EOS % 0.5 % (0.0-3.0); HEMATOCRIT 43.7 % (36.0-47.0); HEMOGLOBIN 14.7 g/dl (12.0-15.5); IMMATURE GRANULOCYTE % 0.4 % (0-3.0); LYMPH # 0.9 10^3/uL (1.5-4.5); LYMPH % 10.5 % (24.0-44.0); MEAN CORPUSCULAR HEMOGLOBIN 30.6 pg (27.0-33.0); MEAN CORPUSCULAR HGB CONC 33.6 g/dl (32.0-36.5); MEAN CORPUSCULAR VOLUME 90.9 fl (80.0-96.0); MONO # 1.1 10^3/uL (0.0-0.8); MONO % 13.1 % (0.0-5.0); NEUTROPHILS # 6.3 10^3/uL (1.8-7.7); PLATELET COUNT, AUTOMATED 279 10^3/uL (150-450); RED BLOOD COUNT 4.81 10^6/uL (4.00-5.40); RED CELL DISTRIBUTION WIDTH 13.2 % (11.5-14.5); WHITE BLOOD COUNT 8.4 10^3/uL (4.0-10.0)
[2017-12-26 20:57] LABS: ANION GAP 10 MEQ/L (8-16); BLOOD UREA NITROGEN 15 MG/DL (7-18); CALCIUM LEVEL 8.4 MG/DL (8.5-10.1); CARBON DIOXIDE LEVEL 23 MEQ/L (21-32); CHLORIDE LEVEL 110 MEQ/L (98-107); CREATININE FOR GFR 0.75 MG/DL (0.55-1.30); GLOMERULAR FILTRATION RATE > 60.0 (>51); GLUCOSE, FASTING 69 MG/DL (70-100); POTASSIUM SERUM 4.1 MEQ/L (3.5-5.1); SODIUM LEVEL 143 MEQ/L (136-145)
[2017-12-26 21:03] LABS: VENOUS BASE EXCESS -2.1 (-2.0-2.0); VENOUS HCO3 21.1 MEQ/L (23.0-27.0); VENOUS O2 SATURATION 99.6 % (60.0-80.0); VENOUS PARTIAL PRESSURE O2 199.8 mmHg (30.0-50.0); VENOUS PH 7.436 UNITS (7.330-7.430); VENOUS STANDARD HCO3 22.8 MEQ/L
[2017-12-26 23:36] LABS: BEDSIDE GLUCOSE 139 MG/DL (70-105)
[2017-12-27] MEDS: ACETAMINOPH W/CODEINE #3 TAB UD PO (00:07)
[2017-12-27] MEDS: LevoFLOXacin 500 MG TABLET PO (00:07)
[2017-12-27 13:05] LABS: BEDSIDE GLUCOSE 39 MG/DL (70-105)
== END 2017-12-27 00:21 | disposition home or self-care (01) ==
LOC: M ED 12-27 00:21
DX: J20.9 Acute bronchitis, unspecified (principal); J45.909 Unspecified asthma, uncomplicated; Z88.0 Allergy status to penicillin; Z88.1 Allergy status to other antibiotic agents; Z88.7 Allergy status to serum and vaccine; Z88.8 Allergy status to other drugs, medicaments and biological substances; Z91.040 Latex allergy status; Z87.891 Personal history of nicotine dependence
CPT/HCPCS: 71046

== ENCOUNTER 2018-02-19 03:04 | Emergency (ER) | payer OTHER ==
[2018-02-19] MEDS: ONDANSETRON 4MG/2ML VIAL (J2405) IV (04:44)
[2018-02-19] MEDS: NS 1,000 ML IV (04:44)
[2018-02-19] MEDS: MORPHINE 4 MG/ML 1ML VIAL/SYRINGE (J2270) IV (04:44)
== END 2018-02-19 06:16 | disposition home or self-care (01) ==
LOC: M ED 03:04
DX: G43.909 Migraine, unspecified, not intractable, without status migrainosus (principal); Z88.8 Allergy status to other drugs, medicaments and biological substances; Z88.0 Allergy status to penicillin; Z88.1 Allergy status to other antibiotic agents; Z91.041 Radiographic dye allergy status; Z91.012 Allergy to eggs; Z88.7 Allergy status to serum and vaccine; Z91.013 Allergy to seafood; Z88.2 Allergy status to sulfonamides; Z79.4 Long term (current) use of insulin; Z79.899 Other long term (current) drug therapy
CPT/HCPCS: J2270

== ENCOUNTER 2018-03-22 18:49 | Emergency (ER) | payer OTHER ==
[2018-03-22 19:49] LABS: BASO # 0.1 10^3/uL (0.0-0.2); BASO % 0.8 % (0.0-1.0); EOS # 0.2 10^3/uL (0.0-0.50); EOS % 2.3 % (0.0-3.0); HEMATOCRIT 47.8 % (36.0-47.0); HEMOGLOBIN 16.5 g/dl (12.0-15.5); IMMATURE GRANULOCYTE % 0.3 % (0-3.0); LYMPH # 3.1 10^3/uL (1.5-4.5); LYMPH % 29.6 % (24.0-44.0); MEAN CORPUSCULAR HEMOGLOBIN 30.6 pg (27.0-33.0); MEAN CORPUSCULAR HGB CONC 34.5 g/dl (32.0-36.5); MEAN CORPUSCULAR VOLUME 88.7 fl (80.0-96.0); MONO # 0.6 10^3/uL (0.0-0.8); MONO % 6.1 % (0.0-5.0); NEUTROPHILS # 6.4 10^3/uL (1.8-7.7); NEUTROPHILS % 60.9 % (36.0-66.0); PLATELET COUNT, AUTOMATED 292 10^3/uL (150-450); RED BLOOD COUNT 5.39 10^6/uL (4.00-5.40); RED CELL DISTRIBUTION WIDTH 13.1 % (11.5-14.5); WHITE BLOOD COUNT 10.5 10^3/uL (4.0-10.0)
[2018-03-22 19:53] LABS: KETONE, URINE AUTO RFX NEGATIVE (NEGATIVE); NITRITE, URINE AUTO RFX NEGATIVE (NEGATIVE); RBC, URINE AUTO RFX 5 /HPF (0-3); SPECIFIC GRAVITY UR AUTO RFX 1.009 (1.002-1.035); SQUAM EPITHELIAL CELL UR AURFX 0 /HPF (0-6); WBC, URINE AUTO RFX 0 /HPF (0-3)
[2018-03-22] MEDS: GASTROGRAFIN SOLUTION 30ML PO ×2 (19:56→20:00)
[2018-03-22] MEDS: NS 1,000 ML IV (19:57)
[2018-03-22 19:58] LABS: LEUKOCYTE ESTERASE UR AUTO RFX TRACE (NEGATIVE)
[2018-03-22 20:01] LABS: BEDSIDE GLUCOSE 169 MG/DL (70-105)
[2018-03-22] MEDS: MORPHINE 2 MG/ML 1ML SYRINGE (J2270) IV (20:01)
[2018-03-22] MEDS: ONDANSETRON 4MG/2ML VIAL (J2405) IV (20:03)
[2018-03-22] MEDS: diphenhydrAMINE INJ 50MG/ML VIAL (J1200) IV ×2 (20:03→21:11)
[2018-03-22] MEDS: methylPREDNISolone INJ 125 MG/2 ML VIAL (J2930) IV (20:03)
[2018-03-22 20:14] LABS: LACTIC ACID SEPSIS PROTOCOL 0.7 MMOL/L (0.4-2.0)
[2018-03-22 20:19] LABS: ALBUMIN 3.6 GM/DL (3.2-5.2); ALBUMIN/GLOBULIN RATIO 1.13 (1.00-1.93); ALKALINE PHOSPHATASE 119 U/L (45-117); ALT/SGPT 18 U/L (12-78); ANION GAP 4 MEQ/L (8-16); AST/SGOT 11 U/L (7-37); BILIRUBIN,DIRECT < 0.1 MG/DL (0.0-0.2); BILIRUBIN,TOTAL 0.2 MG/DL (0.2-1.0); BLOOD UREA NITROGEN 10 MG/DL (7-18); CALCIUM LEVEL 8.5 MG/DL (8.5-10.1); CARBON DIOXIDE LEVEL 28 MEQ/L (21-32); CHLORIDE LEVEL 107 MEQ/L (98-107); CREATININE FOR GFR 0.64 MG/DL (0.55-1.30); GLOMERULAR FILTRATION RATE > 60.0 (>51); GLUCOSE, FASTING 169 MG/DL (70-100); LIPASE 49 U/L (73-393); POTASSIUM SERUM 4.4 MEQ/L (3.5-5.1); SODIUM LEVEL 139 MEQ/L (136-145); TOTAL PROTEIN 6.8 GM/DL (6.4-8.2)
[2018-03-22] MEDS ORDERED: ISOVUE-370 76% 100ML VIAL (Q9967) As Ordered (21:15)
[2018-03-22] MEDS: MAGNESIUM CITRATE 300 ML BTL PO (22:46)
== END 2018-03-22 22:50 | disposition home or self-care (01) ==
LOC: M ED 18:49
DX: K59.00 Constipation, unspecified (principal); E78.5 Hyperlipidemia, unspecified; I25.2 Old myocardial infarction; G43.909 Migraine, unspecified, not intractable, without status migrainosus; J44.9 Chronic obstructive pulmonary disease, unspecified; M26.609 Unspecified temporomandibular joint disorder, unspecified side; Z87.19 Personal history of other diseases of the digestive system; Z87.891 Personal history of nicotine dependence; Z88.0 Allergy status to penicillin; Z88.6 Allergy status to analgesic agent; Z88.8 Allergy status to other drugs, medicaments and biological substances; Z88.1 Allergy status to other antibiotic agents; Z91.041 Radiographic dye allergy status; Z88.7 Allergy status to serum and vaccine; Z79.899 Other long term (current) drug therapy; Z79.4 Long term (current) use of insulin
CPT/HCPCS: Q9963

== ENCOUNTER → 2018-05-22 | Outpatient (CLI) | payer OTHER ==
[~2018-05-22] MED LIST changes: +BACT800T5 PO; +COMBAER6 INH; +CYCL10TA; +CYCL5TAB PO; +DIPH25CA PO; +PRED10TA2 PO; +PYRI1TAB5 PO
--- NOTE | 2018-05-23 08:39 | REPMRS ---
Patient History The patient states she has not had a clinical breast exam in over a year. Patient is postmenopausal. Family history of breast cancer at age 45 in sister, endometrial cancer at age 20 in sister. Benign US guided breast biopsy of the left breast, February 01, 2014. 3D TOMOSYNTHESIS WAS PERFORMED. Digital Mammo Diagnostic Bilateral: May 22, 2018 - Exam #: [id number] Bilateral CC and MLO view(s) were taken. Technologist: Allyssa Onitveros, Technologist Prior study comparison: December 28, 2015, digital mammo diagnostic bilateral performed at [facility]. February 01, 2014, left breast digital mammo diagnostic unilateral performed at [facility]. FINDINGS: The breast tissue is heterogeneously dense. This may lower the sensitivity of mammography. There is a fairly symmetric fibroglandular pattern in both breasts. There has been no interval development of masses, areas of architectural distortion or clusters of microcalcifications typical of malignancy. Assessment: BI-RADS/ACR category 2 mammogram. Benign Findings. Recommendation Routine screening mammogram of both breasts in 1 year (for women over age 40). This mammogram was interpreted with the aid of an FDA-approved computer-aided dectection system. Electronically Signed By: Esa Haider MD 05/22/18 [id number]
== END ==
LOC: M RAD 13:44
PROVIDERS: ATTEND Internal Medicine
DX: N63.0 Unspecified lump in unspecified breast (principal)

== ENCOUNTER 2018-06-03 08:59 | Emergency (ER) | payer OTHER ==
[~2018-06-03] VITALS: Ht 160 cm; Wt 64.1 kg
[2018-06-03 08:59] VITALS: BP 144/69
[2018-06-03] MEDS ORDERED: CYCL10TA (09:04)
[2018-06-03] MEDS ORDERED: NS 1,000 ML IV ONE (09:15)
[2018-06-03] MEDS: MAG SULF 1GM/100ML (MAG RUN) 1 GM in APPROPRIATE DILUENT 1 EA IV ONE ×2 (09:15→09:59)
[2018-06-03] MEDS ORDERED: ACETAMINOPHEN 325 MG TAB PO ONE (09:15)
[2018-06-03] MEDS ORDERED: METOCLOPRAMIDE INJ 10MG/2ML VIAL (J2765) IV ONE (09:15)
[2018-06-03] MEDS ORDERED: ONDANSETRON 4MG/2ML VIAL (J2405) IV ONE (09:15)
[2018-06-03] MEDS ORDERED: diphenhydrAMINE INJ 50MG/ML VIAL (J1200) IV STA (09:20)
[2018-06-03 10:23] LABS: BLOOD UREA NITROGEN 12 MG/DL (7-18); CALCIUM LEVEL 8.6 MG/DL (8.5-10.1); CARBON DIOXIDE LEVEL 27 MEQ/L (21-32); CHLORIDE LEVEL 106 MEQ/L (98-107); CREATININE FOR GFR 0.59 MG/DL (0.55-1.30); GLOMERULAR FILTRATION RATE > 60.0 (>51); GLUCOSE, FASTING 84 MG/DL (70-100); MAGNESIUM LEVEL 2.2 MG/DL (1.8-2.4); POTASSIUM SERUM 3.9 MEQ/L (3.5-5.1); SODIUM LEVEL 140 MEQ/L (136-145)
== END 2018-06-03 10:14 | disposition home or self-care (01) ==
LOC: M ED 08:59
DX: G43.909 Migraine, unspecified, not intractable, without status migrainosus (principal); E10.9 Type 1 diabetes mellitus without complications; J44.9 Chronic obstructive pulmonary disease, unspecified
CPT/HCPCS: 36415; 80048; 83735; 96374; 96375; 99284; J1200; J2765

== ENCOUNTER 2018-06-14 01:30 | Emergency (ER) | payer OTHER ==
[~2018-06-14] VITALS: Ht 160 cm; Wt 65.0 kg
[2018-06-14] MEDS ORDERED: VITA200028 PO (01:38)
[2018-06-14] MEDS ORDERED: NS 1,000 ML IV ONE (02:00)
[2018-06-14 02:17] LABS: BASO # 0.1 10^3/uL (0.0-0.2); BASO % 0.7 % (0.0-1.0); EOS # 0.3 10^3/uL (0.0-0.50); EOS % 2.7 % (0.0-3.0); HEMATOCRIT 46.8 % (36.0-47.0); LYMPH # 3.7 10^3/uL (1.5-4.5); MEAN CORPUSCULAR HEMOGLOBIN 30.9 pg (27.0-33.0); MEAN CORPUSCULAR HGB CONC 34.2 g/dl (32.0-36.5); MEAN CORPUSCULAR VOLUME 90.5 fl (80.0-96.0); MONO # 0.8 10^3/uL (0.0-0.8); MONO % 7.9 % (0.0-5.0); NEUTROPHILS # 5.4 10^3/uL (1.8-7.7); NEUTROPHILS % 52.4 % (36.0-66.0); PLATELET COUNT, AUTOMATED 329 10^3/uL (150-450); RED BLOOD COUNT 5.17 10^6/uL (4.00-5.40); WHITE BLOOD COUNT 10.3 10^3/uL (4.0-10.0)
[2018-06-14] MEDS ORDERED: DEXTROSE 50% 50 ML SYRINGE IV STA ×2 (02:21→04:00)
[2018-06-14] MEDS: METOCLOPRAMIDE INJ 10MG/2ML VIAL (J2765) IV ONE ×2 (02:26→02:28)
[2018-06-14] MEDS ORDERED: ONDANSETRON 4MG/2ML VIAL (J2405) IV ONE (02:30)
[2018-06-14 02:44] LABS: ALBUMIN 3.6 GM/DL (3.2-5.2); ALT/SGPT 13 U/L (12-78); BILIRUBIN,DIRECT < 0.1 MG/DL (0.0-0.2); BILIRUBIN,TOTAL 0.2 MG/DL (0.2-1.0); BLOOD UREA NITROGEN 11 MG/DL (7-18); CALCIUM LEVEL 8.6 MG/DL (8.5-10.1); CARBON DIOXIDE LEVEL 27 MEQ/L (21-32); CHLORIDE LEVEL 104 MEQ/L (98-107); CREATININE FOR GFR 0.66 MG/DL (0.55-1.30); GLOMERULAR FILTRATION RATE > 60.0 (>51); GLUCOSE, FASTING 39 MG/DL (70-100); LIPASE 41 U/L (73-393); SODIUM LEVEL 142 MEQ/L (136-145); TOTAL PROTEIN 7.1 GM/DL (6.4-8.2)
[2018-06-14 02:58] LABS: APPEARANCE, URINE HAZY (CLEAR); BACTERIA, URINE AUTO 1+ (NEGATIVE); BILIRUBIN, URINE AUTO NEGATIVE (NEGATIVE); BLOOD, URINE BLOOD NEGATIVE (NEGATIVE); COLOR, URINE YELLOW (YELLOW); GLUCOSE, URINE (UA) AUTO 1+ mg/dL (NEGATIVE); KETONE, URINE AUTO NEGATIVE (NEGATIVE); LEUKOCYTE ESTERASE, URINE AUTO 3+ (NEGATIVE); NITRITE, URINE AUTO NEGATIVE (NEGATIVE); PROTEIN, URINE AUTO NEGATIVE (NEGATIVE); RBC, URINE AUTO 4 /HPF (0-3); SPECIFIC GRAVITY URINE AUTO 1.017 (1.002-1.035); SQUAMOUS EPITHELIAL CELL UR AU 3 /HPF (0-6); WBC, URINE AUTO 23 /HPF (0-3)
--- NOTE | 2018-06-14 03:39 | REPVR ---
EXAM: CT Abdomen and Pelvis Without Contrast EXAM DATE/TIME: 06/14/2018 2:29 AM CLINICAL HISTORY: 57 years old, female; Pain; Abdominal pain; Generalized; Additional info: Abd pain/contrast allergy TECHNIQUE: Axial computed tomography images of the abdomen and pelvis without contrast. All CT scans at this facility use at least one of these dose optimization techniques: automated exposure control; mA and/or kV adjustment per patient size (includes targeted exams where dose is matched to clinical indication); or iterative reconstruction. Coronal and sagittal reformatted images were created and reviewed. COMPARISON: CT ABD/PEL W/IV ORAL CONTRAS 03/22/2018 9:23 PM Study limitations: Evaluation for mass, inflammatory change, including bowel wall/fold thickening, viscera, and vasculature, is suboptimal without contrast. FINDINGS: LUNG BASES: Mild atelectasis and/or pulmonary parenchymal scarring. Mild centrilobular emphysematous changes. VASCULAR: No abdominal aortic aneurysm or retroperitoneal hematoma. Mild aortoiliac atherosclerosis. PERITONEAL : No free air or free fluid. GI: Mild distention of the distal esophagus could be secondary to tiny hiatal hernia or peristalsis. The stomach contains some fluid and gas. The stomach is not sufficiently distended to evaluate wall thickening, exclude fold thickening or mucosal abnormality. There is some high density material layering within the distal stomach which could be correlated for recently ingested material. This appears to be too dense to represent hemorrhage on noncontrast imaging. No focal mesenteric inflammatory stranding. No asymmetric small bowel dilation to suggest obstruction. No mesenteric lymphadenopathy by size criteria. Perianal inflammatory changes cannot be excluded. Scattered fecal material and gas slightly distending portions of the colon could be correlated for mild constipation. The cecum is distended up to 7 cm with fecal material. Position of the cecum is anterior. No evidence of acute diverticulitis. The appendix does not appear inflamed. HEPATOBILIARY, PANCREAS, SPLEEN: Sagittal hepatic length of 16.5 cm. The gallbladder has been removed. No pancreatic inflammation. Spleen not enlarged. ADRENALS, KIDNEYS, BLADDER, RETROPERITONEAL: Adrenals within normal limits. No hydronephrosis. No renal calculi. No perinephric stranding or fluid. No perivesical stranding. No bladder wall thickening. PELVIC: Evaluation of the pelvic viscera and adnexa is limited secondary to lack of contrast differentiation. The uterine fundus is deviated towards the right, inseparable from the right adnexa. Appearance is similar to the prior exam. For further clarification of the right adnexa/ovary and uterus, consider nonemergent ultrasound if not already done. Gas within the vagina may be iatrogenic. MUSCULOSKELETAL: Subcutaneous soft tissue thickening and calcifications along the gluteal regions are noted, similar to the prior exam. Tiny fat containing umbilical hernia. Mild degenerative changes of the lower lumbar spine. Mild scoliosis. IMPRESSION: No free air, free fluid or focal mesenteric inflammation. Nonspecific gastrointestinal findings as discussed above. Other incidental findings and study limitations discussed above. Electronically signed by: Gabriele Nixon On 06/14/2018 03:38:41 AM
[2018-06-14] MEDS ORDERED: CIPR-249 PO (03:49)
[2018-06-14] MEDS ORDERED: PYRI1TAB5 PO (03:49)
[2018-06-14] MEDS ORDERED: CIPROFLOXACIN 500 MG TAB PO ONE (04:00)
[2018-06-14] MEDS ORDERED: PHENAZOPYRIDINE 100 MG TAB PO ONE (04:00)
[2018-06-14 04:18] VITALS: BP 168/90
== END 2018-06-14 04:32 | disposition home or self-care (01) ==
LOC: M ED 01:30
DX: N39.0 Urinary tract infection, site not specified (principal); E11.9 Type 2 diabetes mellitus without complications; G43.909 Migraine, unspecified, not intractable, without status migrainosus; G89.29 Other chronic pain; M54.9 Dorsalgia, unspecified; R93.3 Abnormal findings on diagnostic imaging of other parts of digestive tract; K42.9 Umbilical hernia without obstruction or gangrene; M51.36 Other intervertebral disc degeneration, lumbar region; Z79.4 Long term (current) use of insulin; Z79.899 Other long term (current) drug therapy; Z88.8 Allergy status to other drugs, medicaments and biological substances; Z88.5 Allergy status to narcotic agent; Z88.0 Allergy status to penicillin; Z88.1 Allergy status to other antibiotic agents; Z88.2 Allergy status to sulfonamides; Z88.7 Allergy status to serum and vaccine; Z91.013 Allergy to seafood; Z91.012 Allergy to eggs; Z91.041 Radiographic dye allergy status
CPT/HCPCS: 36415; 74176; 80048; 80076; 81001; 83690; 85025; 87086; 96374; 96375; 96376; 99284; J2405

== ENCOUNTER 2018-06-16 03:33 | Emergency (ER) | payer OTHER ==
[~2018-06-16] VITALS: Ht 162.6 cm; Wt 65.0 kg
[~2018-06-16 03:33] MED LIST changes: +CIPR-249 PO; +VITA200028 PO
[2018-06-16] MEDS ORDERED: REST0.05 OP (03:40)
[2018-06-16] MEDS ORDERED: BENA25CA4 PO (03:40)
[2018-06-16] MEDS ORDERED: ACETAMINOPHEN 325 MG TAB PO ONE (04:15)
[2018-06-16] MEDS ORDERED: NS 1,000 ML IV ONE (04:15)
[2018-06-16] MEDS ORDERED: ONDANSETRON 4MG/2ML VIAL (J2405) IV ONE (04:45)
[2018-06-16 04:46] LABS: INFLUENZA A AMPLIFICATION POSITIVE (NEGATIVE); INFLUENZA B AMPLIFICATION NEGATIVE (NEGATIVE)
[2018-06-16] MEDS ORDERED: dexameTHASONE 20 MG/5 ML VIAL (J1100) IV ONE (05:00)
[2018-06-16] MEDS ORDERED: IPRATROPIUM 0.5MG/ALBUTEROL 2.5MG INH SOL UD 3ML (DUONEB)(J7620) NEB ONE (05:00)
[2018-06-16] MEDS ORDERED: IPRATROPIUM 0.5MG/ALBUTEROL 2.5MG INH SOL UD 3ML (DUONEB)(J7620) As Ordered ONE (05:01)
[2018-06-16] MEDS ORDERED: OSEL75CA PO (05:08)
[2018-06-16] MEDS ORDERED: DECA4TAB PO (05:11)
[2018-06-16 05:30] VITALS: BP 144/110
[2018-06-16] MEDS ORDERED: PHENAZOPYRIDINE 100 MG TAB PO ONE (06:00)
--- NOTE | 2018-06-16 08:05 | REP ---
Clinical: Cough . Comparison: 12/26/2017 . Technique: PA and lateral. Findings: The mediastinum and cardiac silhouette are normal. The lung russo are clear and without acute consolidation, effusion, or pneumothorax. The skeletal structures are intact and normal. Impression: 1. No acute cardiopulmonary process. Electronically Signed by Alfa Harris MD 06/16/2018 07:57 A
--- NOTE | 2018-06-17 07:31 | ECGEPIP ---
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
== END 2018-06-16 05:54 | disposition home or self-care (01) ==
LOC: M ED 03:33
DX: J11.1 Influenza due to unidentified influenza virus with other respiratory manifestations (principal); E11.9 Type 2 diabetes mellitus without complications; J44.9 Chronic obstructive pulmonary disease, unspecified; Z87.440 Personal history of urinary (tract) infections; Z79.4 Long term (current) use of insulin; Z79.899 Other long term (current) drug therapy; Z88.0 Allergy status to penicillin; Z88.8 Allergy status to other drugs, medicaments and biological substances; Z91.041 Radiographic dye allergy status; Z88.6 Allergy status to analgesic agent; Z88.7 Allergy status to serum and vaccine; Z88.5 Allergy status to narcotic agent; Z88.2 Allergy status to sulfonamides; Z91.012 Allergy to eggs; Z91.013 Allergy to seafood; Z91.040 Latex allergy status
CPT/HCPCS: 36415; 71046; 87502; 93005; 93041; 94640; 96361; 96374; 96375; 99284; J1100; J2405

== ENCOUNTER 2018-08-08 07:30 | Day surgery (SDC) | payer OTHER ==
[~2018-08-08] VITALS: Ht 160 cm; Wt 64.0 kg
[~2018-08-08 07:30] MED LIST changes: -/ACETCOD2T PO; -/INSU7030 SC; +ACET-716 PO; +ACET1TAB15 PO; -ACET30TAB PO; -ACET50TA PO; +APPLTAB2 PO; +CODOIL15 PO; +COLLCAP2 PO; +CRAN450T4 PO; +DECA4TAB PO; +LINZ290C PO; +LOTRCRE TOP; +MAPA500T17 PO; +NOVO1INJ4 SC; +NS 1,000 ML IV ONE; +OSEL75CA PO; +PRED-351 PO; -PRED10TA PO; +REST0.05 OP
[2018-08-08] MEDS ORDERED: PROPOFOL 500 MG/50 ML VIAL As Ordered ONE (07:33)
[2018-08-08] MEDS ORDERED: LIDOCAINE 2% INJ 100 MG/5 ML SDV (FOR ANES.) As Ordered ONE (07:33)
[2018-08-08] MEDS ORDERED: hydrALAZINE INJ 20 MG/ML VIAL As Ordered ONE (07:38)
--- NOTE | 2018-08-08 08:01 | ROOR ---
Patient Name: Gill Tuttle Procedure Date: 08/08/2018 7:30 AM Date of : 1960 Age: 57 Room: [facility] Gender: Female Note Status: Finalized Procedure: Colonoscopy Indications: Suspected irritable bowel syndrome, Constipation Providers: Byron CEBALLOS MD Referring MD: ROE AU MD Requesting Provider: Medicines: Monitored Anesthesia Care Complications: No immediate complications. Procedure: Pre-Anesthesia Assessment: - The heart rate, respiratory rate, oxygen saturations, blood pressure, adequacy of pulmonary ventilation, and response to care were monitored throughout the procedure. The Colonoscope was introduced through the anus and advanced to the terminal ileum, with identification of the appendiceal orifice and IC valve. The colonoscopy was performed without difficulty. The patient tolerated the procedure well. The quality of the bowel preparation was good. Findings: The perianal and digital rectal examinations were normal. Three sessile polyps were found in the sigmoid colon and ascending colon. The polyps were 4 to 5 mm in size. These polyps were removed with a cold snare. Resection and retrieval were complete. Small Internal Hemorrhoids. The exam was otherwise without abnormality on direct and retroflexion views. Impression: - Three 4 to 5 mm polyps in the sigmoid colon and in the ascending colon, removed with a cold snare. Resected and retrieved. - Small Internal Hemorrhoids. - The examination was otherwise normal on direct and retroflexion views. Recommendation: - Continue present medications. - Await pathology results. - Repeat colonoscopy in 3 - 5 years for surveillance based on pathology results. - Telephone endoscopist for pathology results in 2 weeks. - Return to referring physician as previously scheduled. Byron Ceballos MD Byron CEBALLOS MD 08/08/2018 8:00:37 AM Electronically signed by Byron CEBALLOS MD Number of Addenda: 0 Note Initiated On: 08/08/2018 7:30 AM Estimated Blood Loss: Estimated blood loss: none.
[2018-08-08 08:20] VITALS: BP 135/69
== END 2018-08-08 08:20 | disposition home or self-care (01) ==
LOC: M OPP 07:30
PROVIDERS: ATTEND Internal Medicine Gastroenterology
DX: D12.5 Benign neoplasm of sigmoid colon (principal); D12.2 Benign neoplasm of ascending colon; K64.8 Other hemorrhoids; K59.00 Constipation, unspecified; Z79.4 Long term (current) use of insulin; Z79.899 Other long term (current) drug therapy; Z88.0 Allergy status to penicillin; Z88.1 Allergy status to other antibiotic agents; Z88.5 Allergy status to narcotic agent; Z88.8 Allergy status to other drugs, medicaments and biological substances; Z91.012 Allergy to eggs; Z91.013 Allergy to seafood; Z91.041 Radiographic dye allergy status; Z91.030 Bee allergy status; Z87.891 Personal history of nicotine dependence

== ENCOUNTER 2018-08-14 00:14 | Emergency (ER) | payer OTHER ==
[~2018-08-14] VITALS: Ht 160 cm; Wt 64.1 kg
[~2018-08-14 00:14] MED LIST changes: -NS 1,000 ML IV ONE
[2018-08-14] MEDS ORDERED: PERCOCET 5MG/325MG TAB PO ONE (01:15)
[2018-08-14 01:51] LABS: BASO # 0.1 10^3/uL (0.0-0.2); BASO % 0.7 % (0.0-1.0); EOS # 0.3 10^3/uL (0.0-0.50); EOS % 2.4 % (0.0-3.0); HEMATOCRIT 46.5 % (36.0-47.0); HEMOGLOBIN 15.7 g/dl (12.0-15.5); LYMPH # 4.4 10^3/uL (1.5-4.5); LYMPH % 41.9 % (24.0-44.0); MEAN CORPUSCULAR HEMOGLOBIN 30.5 pg (27.0-33.0); MEAN CORPUSCULAR HGB CONC 33.8 g/dl (32.0-36.5); MEAN CORPUSCULAR VOLUME 90.5 fl (80.0-96.0); MONO # 0.8 10^3/uL (0.0-0.8); MONO % 7.3 % (0.0-5.0); NEUTROPHILS % 47.5 % (36.0-66.0); PLATELET COUNT, AUTOMATED 330 10^3/uL (150-450); RED BLOOD COUNT 5.14 10^6/uL (4.00-5.40); WHITE BLOOD COUNT 10.4 10^3/uL (4.0-10.0)
[2018-08-14 02:08] LABS: BLOOD UREA NITROGEN 11 MG/DL (7-18); CALCIUM LEVEL 8.9 MG/DL (8.5-10.1); CARBON DIOXIDE LEVEL 31 MEQ/L (21-32); CHLORIDE LEVEL 107 MEQ/L (98-107); CREATININE FOR GFR 0.69 MG/DL (0.55-1.30); GLOMERULAR FILTRATION RATE > 60.0 (>51); GLUCOSE, FASTING 125 MG/DL (70-100); POTASSIUM SERUM 4.5 MEQ/L (3.5-5.1); SODIUM LEVEL 143 MEQ/L (136-145)
[2018-08-14] MEDS ORDERED: SIME180C PO (02:28)
[2018-08-14 02:30] VITALS: BP 176/94
[2018-08-14] MEDS ORDERED: OXYCODONE/APAP 5MG/325MG(BULK FOR ED) 1 TABLET PO ONE (02:30)
--- NOTE | 2018-08-14 04:25 | REPVR ---
EXAM: US Pelvis, Transvaginal EXAM DATE/TIME: 08/14/2018 1:56 AM CLINICAL HISTORY: 57 years old, female; Pelvic pain; Prior surgery; Surgery date: 6+ months; Surgery type: Tubal ligation, c sections; Additional info: Lower pelvic pain TECHNIQUE: Imaging protocol: Real-time transvaginal pelvic ultrasound with image documentation. Transvaginal imaging was used for better evaluation of the endometrium and adnexa. Other technique: Transabdominal imaging was initially performed, but the pelvic structures were not well seen. COMPARISON: CT ABD PELVIS W/O CONTRAST 06/14/2018 2:40 AM FINDINGS: Uterus/cervix: The uterus measures 7.9 x 3.5 x 4.4 cm. There is a heterogeneous somewhat hypoechoic mass in the uterus, consistent with a fibroid, measuring 2.8 x 2.6 x 2.7 cm. In the right side of the body of the uterus there is a 1.5 x 2.1 0.6 cm hypoechoic lesion consistent with a fibroid. There is a third hypoechoic fibroid on the left side of the uterine body measuring 1.0 x 1.3 x 1.0 cm. The endometrium is poorly delineated. Right adnexa: A structure thought to be the right ovary was identified, but its internal architecture is not well assessed. It measures 1.7 x 1.5 x 1.2 cm. There is blood flow within it on pulsed Doppler. Left adnexa: The left ovary was not identified, likely obscured by bowel gas. Bladder: The bladder was initially distended for the transabdominal exam and appeared unremarkable. Free fluid: No significant fluid is seen in the cul-de-sac. IMPRESSION: 1. Fibroid uterus. The dominant fibroid in the uterine body obscures the endometrium. 2. The right ovary was not well seen but appears grossly unremarkable. The left ovary could not be identified. Electronically signed by: Viv Yarbrough On 08/14/2018 04:24:50 AM
--- NOTE | 2018-08-14 09:10 | REP ---
ABDOMEN, FLAT UPRIGHT PA CHEST, THREE VIEWS: HISTORY: Abdominal pain. COMPARISON: 06/16/2018. Air is present in small and large intestine. There are no air fluid levels or dilated loops of intestine. There is no pneumoperitoneum. A mild amount of stool is present. Surgical clips are present in the right upper quadrant. The lungs are clear. IMPRESSION: Nonspecific bowel gas pattern. Electronically Signed by David Limon MD 08/14/2018 09:15 A
--- NOTE | 2018-08-14 14:02 | ED PDOC ---
Post-Departure Follow-Up Pharmacy called and stated that with what they have in stock they can only give 160mg tid instead of 180mg tid. Advised pharmacy that this would be sufficient. VIVIENNE Mai BROOKE D. PA-C Aug 14, 2018 14:02
== END 2018-08-14 02:37 | disposition home or self-care (01) ==
LOC: M ED 00:14
DX: R10.2 Pelvic and perineal pain (principal); D25.9 Leiomyoma of uterus, unspecified; K58.9 Irritable bowel syndrome, unspecified; I25.2 Old myocardial infarction; G43.909 Migraine, unspecified, not intractable, without status migrainosus; E78.00 Pure hypercholesterolemia, unspecified; J45.909 Unspecified asthma, uncomplicated; J44.9 Chronic obstructive pulmonary disease, unspecified; Z87.19 Personal history of other diseases of the digestive system; E10.9 Type 1 diabetes mellitus without complications; M54.9 Dorsalgia, unspecified; F41.9 Anxiety disorder, unspecified; F32.9 Major depressive disorder, single episode, unspecified; Z79.899 Other long term (current) drug therapy; Z87.891 Personal history of nicotine dependence; Z91.041 Radiographic dye allergy status; Z88.0 Allergy status to penicillin; Z88.2 Allergy status to sulfonamides; Z88.8 Allergy status to other drugs, medicaments and biological substances; Z88.1 Allergy status to other antibiotic agents; Z88.5 Allergy status to narcotic agent; Z88.7 Allergy status to serum and vaccine; Z91.040 Latex allergy status; Z91.013 Allergy to seafood; Z91.012 Allergy to eggs

== ENCOUNTER 2018-08-21 23:21 | Emergency (ER) | payer OTHER ==
[~2018-08-21] VITALS: Ht 160 cm; Wt 64.1 kg
[~2018-08-21 23:21] MED LIST changes: +SIME180C PO
[2018-08-21] MEDS ORDERED: SIME180C PO (23:43)
[2018-08-21] MEDS ORDERED: ACET325C PO (23:43)
[2018-08-21] MEDS ORDERED: TRUL3TAB PO (23:43)
[2018-08-22] MEDS ORDERED: MORPHINE 4 MG/ML 1ML VIAL/SYRINGE (J2270) IV ONE (00:15)
[2018-08-22 00:35] LABS: BASO # 0.1 10^3/uL (0.0-0.2); BASO % 0.9 % (0.0-1.0); EOS # 0.2 10^3/uL (0.0-0.50); EOS % 2.4 % (0.0-3.0); HEMATOCRIT 45.4 % (36.0-47.0); HEMOGLOBIN 15.3 g/dl (12.0-15.5); LYMPH # 3.1 10^3/uL (1.5-4.5); LYMPH % 38.1 % (24.0-44.0); MEAN CORPUSCULAR HEMOGLOBIN 30.2 pg (27.0-33.0); MEAN CORPUSCULAR HGB CONC 33.7 g/dl (32.0-36.5); MEAN CORPUSCULAR VOLUME 89.7 fl (80.0-96.0); MONO # 0.6 10^3/uL (0.0-0.8); MONO % 6.8 % (0.0-5.0); NEUTROPHILS # 4.2 10^3/uL (1.8-7.7); NEUTROPHILS % 51.6 % (36.0-66.0); PLATELET COUNT, AUTOMATED 318 10^3/uL (150-450); RED BLOOD COUNT 5.06 10^6/uL (4.00-5.40); WHITE BLOOD COUNT 8.2 10^3/uL (4.0-10.0)
[2018-08-22] MEDS ORDERED: ONDANSETRON 4MG/2ML VIAL (J2405) IV ONE ×2 (00:45→02:45)
[2018-08-22] MEDS ORDERED: NS 1,000 ML IV ONE (01:00)
--- NOTE | 2018-08-22 01:16 | REPVR ---
EXAM: CT Abdomen and Pelvis Without Contrast EXAM DATE/TIME: 08/22/2018 12:06 AM CLINICAL HISTORY: 57 years old, female; Abdominal pain; Localized; Lower; Additional info: Lower abd pain TECHNIQUE: Imaging protocol: Axial computed tomography images of the abdomen and pelvis without contrast. Coronal and sagittal reformatted images were created and reviewed. Radiation optimization: All CT scans at this facility use at least one of these dose optimization techniques: automated exposure control; mA and/or kV adjustment per patient size (includes targeted exams where dose is matched to clinical indication); or iterative reconstruction. COMPARISON: CT ABD PELVIS W/O CONTRAST 06/14/2018 2:40 AM FINDINGS: Lungs: Minimal bibasilar bullous change with minimal linear scar in the right lower lobe. ABDOMEN: Liver: Normal. No mass. Gallbladder and bile ducts: Status post cholecystectomy. Pancreas: Normal. No ductal dilation. Spleen: Normal. No splenomegaly. Adrenals: Normal. No mass. Kidneys and ureters: Normal. No hydronephrosis. Stomach and bowel: Normal. No obstruction. No mucosal thickening. Appendix: A normal appendix is seen. PELVIS: Bladder: Unremarkable as visualized. Reproductive: Unremarkable as visualized. ABDOMEN and PELVIS: Intraperitoneal space: Normal. No free air. No significant fluid collection. Bones/joints: No acute fracture. No dislocation. Soft tissues: Unremarkable. Vasculature: Normal. No abdominal aortic aneurysm. Lymph nodes: Normal. No enlarged lymph nodes. IMPRESSION: 1. There has been little change from 06/14/2018. No acute interval process is identified. 2. Minimal linear scar in the right lower lobe. 3. Status post cholecystectomy. Electronically signed by: Edgardo Hou On 08/22/2018 01:15:34 AM
[2018-08-22 01:22] LABS: ALBUMIN 3.6 GM/DL (3.2-5.2); ALT/SGPT 15 U/L (12-78); BILIRUBIN,DIRECT < 0.1 MG/DL (0.0-0.2); BILIRUBIN,TOTAL 0.3 MG/DL (0.2-1.0); BLOOD UREA NITROGEN 10 MG/DL (7-18); CALCIUM LEVEL 8.4 MG/DL (8.5-10.1); CARBON DIOXIDE LEVEL 28 MEQ/L (21-32); CHLORIDE LEVEL 109 MEQ/L (98-107); CREATININE FOR GFR 0.66 MG/DL (0.55-1.30); GLOMERULAR FILTRATION RATE > 60.0 (>51); GLUCOSE, FASTING 148 MG/DL (70-100); LIPASE 44 U/L (73-393); POTASSIUM SERUM 3.8 MEQ/L (3.5-5.1); SODIUM LEVEL 141 MEQ/L (136-145); TOTAL PROTEIN 6.7 GM/DL (6.4-8.2)
[2018-08-22 01:35] LABS: CHLAMYDIA DNA AMPLIFICATION NEGATIVE (NEGATIVE); GC DNA AMPLIFICATION NEGATIVE (NEGATIVE)
[2018-08-22] MEDS ORDERED: DEXTROSE 50% 50 ML SYRINGE IV STA (03:42)
[2018-08-22 05:00] VITALS: BP 166/74
[2018-08-22] MEDS ORDERED: OXYCODONE/APAP 5MG/325MG(BULK FOR ED) 1 TABLET PO ONE (05:00)
== END 2018-08-22 05:30 | disposition home or self-care (01) ==
LOC: M ED 23:21
DX: R10.2 Pelvic and perineal pain (principal); J44.9 Chronic obstructive pulmonary disease, unspecified; E11.9 Type 2 diabetes mellitus without complications; E78.5 Hyperlipidemia, unspecified; F33.9 Major depressive disorder, recurrent, unspecified; F41.9 Anxiety disorder, unspecified; G43.909 Migraine, unspecified, not intractable, without status migrainosus; I25.2 Old myocardial infarction; Z87.19 Personal history of other diseases of the digestive system; Z79.899 Other long term (current) drug therapy; Z79.4 Long term (current) use of insulin; Z88.0 Allergy status to penicillin; Z88.1 Allergy status to other antibiotic agents; Z88.2 Allergy status to sulfonamides; Z88.8 Allergy status to other drugs, medicaments and biological substances; Z91.012 Allergy to eggs; Z91.041 Radiographic dye allergy status
CPT/HCPCS: 36415; 74176; 80048; 80076; 81001; 83690; 85025; 87086; 87210; 87491; 87591; 96361; 96374; 96375; 96376; 99284; J2270; J2405

== ENCOUNTER 2018-10-08 21:06 | Emergency (ER) | payer OTHER ==
[~2018-10-08] VITALS: Ht 160 cm; Wt 64.1 kg
[~2018-10-08 21:06] MED LIST changes: +ACET325C PO; +TRUL3TAB PO
[2018-10-09] MEDS ORDERED: ONDANSETRON 4MG/2ML VIAL (J2405) IV ONE (00:15)
[2018-10-09] MEDS ORDERED: diphenhydrAMINE INJ 50MG/ML VIAL (J1200) IV ONE (00:15)
[2018-10-09] MEDS ORDERED: NS 1,000 ML IV ONE (00:15)
[2018-10-09] MEDS ORDERED: ACETAMINOPHEN 500 MG TAB PO ONE (00:15)
[2018-10-09] MEDS ORDERED: MAG SULF 1GM/100ML (MAG RUN) 1 GM in APPROPRIATE DILUENT 1 EA IV ONE (01:45)
[2018-10-09] MEDS ORDERED: dexameTHASONE 4 MG/ML 1ML VIAL (J1100) IV ONE (01:45)
[2018-10-09 01:52] VITALS: BP 168/75
== END 2018-10-09 02:06 | disposition home or self-care (01) ==
LOC: M ED 21:06
DX: G43.909 Migraine, unspecified, not intractable, without status migrainosus (principal); E10.9 Type 1 diabetes mellitus without complications; I25.2 Old myocardial infarction; Z78.0 Asymptomatic menopausal state; J30.89 Other allergic rhinitis; Z79.4 Long term (current) use of insulin; Z88.0 Allergy status to penicillin; Z88.1 Allergy status to other antibiotic agents; Z88.2 Allergy status to sulfonamides; Z88.8 Allergy status to other drugs, medicaments and biological substances; Z91.012 Allergy to eggs
CPT/HCPCS: 96374; 96375; 99284; J1200; J2405

== ENCOUNTER 2018-10-31 20:23 | Emergency (ER) | payer OTHER ==
[~2018-10-31] VITALS: Ht 160 cm; Wt 63.6 kg
[2018-11-01] MEDS ORDERED: NORCO, ANEXSIA 5/325MG TABLET (HYDROcodone/ACETAMINOPHEN) PO ONE
[2018-11-01 00:40] LABS: BASO # 0.1 10^3/uL (0.0-0.2); BASO % 0.7 % (0.0-1.0); EOS # 0.4 10^3/uL (0.0-0.50); EOS % 4.1 % (0.0-3.0); HEMATOCRIT 44.2 % (36.0-47.0); HEMOGLOBIN 15.3 g/dl (12.0-15.5); LYMPH % 40.5 % (24.0-44.0); MEAN CORPUSCULAR HEMOGLOBIN 31.5 pg (27.0-33.0); MEAN CORPUSCULAR HGB CONC 34.6 g/dl (32.0-36.5); MEAN CORPUSCULAR VOLUME 91.1 fl (80.0-96.0); MONO # 0.7 10^3/uL (0.0-0.8); MONO % 7.5 % (0.0-5.0); NEUTROPHILS # 4.6 10^3/uL (1.8-7.7); NEUTROPHILS % 46.9 % (36.0-66.0); PLATELET COUNT, AUTOMATED 294 10^3/uL (150-450); RED BLOOD COUNT 4.85 10^6/uL (4.00-5.40); WHITE BLOOD COUNT 9.8 10^3/uL (4.0-10.0)
[2018-11-01] MEDS ORDERED: CELE100C PO ×2 (01:50→01:53)
[2018-11-01 02:02] VITALS: BP 142/82
[2018-11-20] MEDS ORDERED: HYDR-3363 PO (15:00)
== END 2018-11-01 02:04 | disposition home or self-care (01) ==
LOC: M ED 20:23
DX: D25.9 Leiomyoma of uterus, unspecified (principal); E10.9 Type 1 diabetes mellitus without complications; J45.909 Unspecified asthma, uncomplicated; J44.9 Chronic obstructive pulmonary disease, unspecified; F33.9 Major depressive disorder, recurrent, unspecified; F41.9 Anxiety disorder, unspecified; G43.909 Migraine, unspecified, not intractable, without status migrainosus; I25.2 Old myocardial infarction; Z87.19 Personal history of other diseases of the digestive system; Z79.899 Other long term (current) drug therapy; Z79.4 Long term (current) use of insulin; Z88.0 Allergy status to penicillin; Z88.1 Allergy status to other antibiotic agents; Z88.2 Allergy status to sulfonamides; Z88.8 Allergy status to other drugs, medicaments and biological substances; Z91.012 Allergy to eggs; Z91.041 Radiographic dye allergy status; Z87.891 Personal history of nicotine dependence

== ENCOUNTER 2018-11-05 08:33 | Emergency (ER) | payer OTHER ==
[~2018-11-05] VITALS: Ht 160 cm; Wt 63.6 kg
[~2018-11-05 08:33] MED LIST changes: +CELE100C PO
[2018-11-05] MEDS ORDERED: ACETAMINOPHEN 500 MG TAB PO ONE (10:00)
[2018-11-05 10:07] LABS: BASO # 0.1 10^3/uL (0.0-0.2); BASO % 0.4 % (0.0-1.0); EOS # 0.1 10^3/uL (0.0-0.50); EOS % 0.5 % (0.0-3.0); HEMATOCRIT 44.1 % (36.0-47.0); HEMOGLOBIN 14.9 g/dl (12.0-15.5); MEAN CORPUSCULAR HEMOGLOBIN 30.4 pg (27.0-33.0); MEAN CORPUSCULAR HGB CONC 33.8 g/dl (32.0-36.5); MONO # 0.7 10^3/uL (0.0-0.8); NEUTROPHILS # 15.2 10^3/uL (1.8-7.7); NEUTROPHILS % 83.7 % (36.0-66.0); PLATELET COUNT, AUTOMATED 296 10^3/uL (150-450); WHITE BLOOD COUNT 18.1 10^3/uL (4.0-10.0)
[2018-11-05 11:09] LABS: ALBUMIN 3.4 GM/DL (3.2-5.2); ALT/SGPT 15 U/L (12-78); BILIRUBIN,DIRECT < 0.1 MG/DL (0.0-0.2); BILIRUBIN,TOTAL 0.3 MG/DL (0.2-1.0); BLOOD UREA NITROGEN 13 MG/DL (7-18); CALCIUM LEVEL 8.6 MG/DL (8.5-10.1); CARBON DIOXIDE LEVEL 27 MEQ/L (21-32); CHLORIDE LEVEL 108 MEQ/L (98-107); CREATININE FOR GFR 0.64 MG/DL (0.55-1.30); GLOMERULAR FILTRATION RATE > 60.0 (>51); GLUCOSE, FASTING 198 MG/DL (70-100); LIPASE 72 U/L (73-393); SODIUM LEVEL 142 MEQ/L (136-145); TOTAL PROTEIN 6.7 GM/DL (6.4-8.2)
[2018-11-05 11:33] VITALS: BP 165/85
[2018-11-20] MEDS ORDERED: HYDR-3363 PO (15:00)
== END 2018-11-05 11:47 | disposition home or self-care (01) ==
LOC: M ED 08:33
DX: E11.649 Type 2 diabetes mellitus with hypoglycemia without coma (principal); I25.2 Old myocardial infarction; J44.9 Chronic obstructive pulmonary disease, unspecified; G43.909 Migraine, unspecified, not intractable, without status migrainosus; F32.9 Major depressive disorder, single episode, unspecified; Z79.4 Long term (current) use of insulin; Z79.899 Other long term (current) drug therapy; Z91.041 Radiographic dye allergy status; Z88.2 Allergy status to sulfonamides; Z88.1 Allergy status to other antibiotic agents; Z88.8 Allergy status to other drugs, medicaments and biological substances; Z88.5 Allergy status to narcotic agent; Z88.7 Allergy status to serum and vaccine; Z91.012 Allergy to eggs

== ENCOUNTER 2018-11-24 23:20 | Emergency (ER) | payer OTHER ==
[~2018-11-24] VITALS: Ht 160 cm; Wt 64.1 kg
[~2018-11-24 23:20] MED LIST changes: -DIPH25CA PO; +DIPH25CA32 PO
[2018-11-25 02:28] VITALS: BP 154/86
[2018-11-25] MEDS ORDERED: NORCO, ANEXSIA 5/325MG TABLET (HYDROcodone/ACETAMINOPHEN) PO ONE (02:30)
== END 2018-11-25 02:33 | disposition home or self-care (01) ==
LOC: M ED 23:20
DX: G89.29 Other chronic pain (principal); E11.9 Type 2 diabetes mellitus without complications; J45.909 Unspecified asthma, uncomplicated; Z79.4 Long term (current) use of insulin; Z79.899 Other long term (current) drug therapy; Z88.0 Allergy status to penicillin; Z88.2 Allergy status to sulfonamides; Z88.8 Allergy status to other drugs, medicaments and biological substances; Z88.5 Allergy status to narcotic agent; Z88.7 Allergy status to serum and vaccine; Z91.013 Allergy to seafood; Z91.040 Latex allergy status; Z91.012 Allergy to eggs; Z91.041 Radiographic dye allergy status

== ENCOUNTER 2018-12-04 10:29 | Day surgery (SDC) | payer OTHER ==
[2018-12-04] VITALS (8 sets, daily range): BP systolic 141–152; BP diastolic 67–86; O2SAT 96–97
[~2018-12-04] VITALS: Ht 160 cm; Wt 62.8 kg
[2018-12-04] MEDS ORDERED: LR 1,000 ML IV ONE (10:45)
[2018-12-04] MEDS ORDERED: ceFAZolin 2 GM/D5W 50 ML IV BAG (J0690 PER 500MG) As Ordered ONE (10:57)
[2018-12-04] MEDS ORDERED: DEXTROSE 50% 50 ML SYRINGE As Ordered ONE (10:58)
[2018-12-04 11:15] LABS: HEMATOCRIT 45.6 % (36.0-47.0); HEMOGLOBIN 15.5 g/dl (12.0-15.5); MEAN CORPUSCULAR HEMOGLOBIN 30.3 pg (27.0-33.0); MEAN CORPUSCULAR VOLUME 89.1 fl (80.0-96.0); PLATELET COUNT, AUTOMATED 329 10^3/uL (150-450); RED BLOOD COUNT 5.12 10^6/uL (4.00-5.40); WHITE BLOOD COUNT 8.8 10^3/uL (4.0-10.0)
[2018-12-04] MEDS ORDERED: DEXTROSE 50% 50 ML SYRINGE IV ONE (11:15)
[2018-12-04] MEDS ORDERED: dexameTHASONE 4 MG/ML 1ML VIAL (J1100) As Ordered ONE (12:17)
[2018-12-04] MEDS ORDERED: PROPOFOL 200 MG/20 ML VIAL As Ordered ONE (12:17)
[2018-12-04] MEDS ORDERED: LIDOCAINE 2% INJ 100 MG/5 ML SDV (FOR ANES.) As Ordered ONE (12:17)
[2018-12-04] MEDS ORDERED: ONDANSETRON 4MG/2ML VIAL (J2405) As Ordered ONE (12:17)
[2018-12-04] MEDS ORDERED: ROCURONIUM BROMIDE 50 MG/5 ML VIAL As Ordered ONE (12:17)
[2018-12-04] MEDS ORDERED: MIDAZOLAM INJ 2 MG/2 ML VIAL (J2250) As Ordered ONE (12:21)
[2018-12-04] MEDS ORDERED: fentaNYL 250 MCG/5 ML INJECTION (J3010) As Ordered ONE (12:21)
[2018-12-04] MEDS ORDERED: SCOPOLAMINE 1MG TRANSDERMAL PATCH As Ordered ONE (13:32)
[2018-12-04] MEDS ORDERED: SCOPOLAMINE 1MG TRANSDERMAL PATCH TOP ONE (13:45)
[2018-12-04] MEDS ORDERED: METHYLENE BLUE 0.5% (5MG/ML) 10 ML AMP (PROVAYBLUE)(Q9968 PER 1MG) As Ordered ONE (15:01)
[2018-12-04] MEDS ORDERED: diphenhydrAMINE INJ 50MG/ML VIAL (J1200) As Ordered ONE (15:45)
[2018-12-04] MEDS ORDERED: fentaNYL 100 MCG/2 ML INJECTION (J3010) As Ordered ONE (17:11)
[2018-12-04] MEDS ORDERED: SUGAMMADEX SODIUM 500 MG/5 ML VIAL (BRIDION) As Ordered ONE (17:14)
[2018-12-04] MEDS ORDERED: MORPHINE 1MG/ML IN 0.9% NACL 100ML IV BAG As Ordered ONE (17:52)
[2018-12-04] MEDS ORDERED: METOCLOPRAMIDE INJ 10MG/2ML VIAL (J2765) As Ordered ONE (18:13)
[2018-12-04] MEDS ORDERED: KETOROLAC 60 MG/2 ML VIAL (J1885) As Ordered ONE (18:13)
[2018-12-04] MEDS ORDERED: ONDANSETRON 4MG/2ML VIAL (J2405) IV PRN (18:30)
[2018-12-04] MEDS ORDERED: EPIDURAL/PCA KEYS XX PRN (18:30)
[2018-12-04] MEDS ORDERED: diphenhydrAMINE INJ 50MG/ML VIAL (J1200) IV PRN (18:30)
[2018-12-04] MEDS ORDERED: LR 1,000 ML IV SCH ×2 (18:30)
[2018-12-04] MEDS ORDERED: NALOXONE INJ 0.4 MG/1 ML VIAL (J2310) IV PRN (18:30)
[2018-12-04] MEDS ORDERED: fentaNYL 100 MCG/2 ML INJECTION (J3010) IV PRN (18:30)
[2018-12-04] MEDS ORDERED: MORPHINE 1MG/ML IN 0.9% NACL 100ML IV BAG IV PRN (18:30)
[2018-12-04] MEDS ORDERED: PERCOCET 5MG/325MG TAB PO PRN (18:30)
[2018-12-04] MEDS ORDERED: IBUPROFEN 600 MG TAB PO PRN (18:30)
[2018-12-04] MEDS ORDERED: NALBUPHINE HCL 10 MG/ML AMP (J2300) IV PRN (18:30)
[2018-12-04] MEDS: **UNRESOLVED NON-FORMULARY MED ORDER XX SCH (21:00)
[2018-12-04] MEDS: hydrOXYzine 25 MG TAB PO SCH (22:00)
[2018-12-05] VITALS: O2SAT 96
[2018-12-05 00:35] VITALS: BP 148/69
[2018-12-05 02:00] VITALS: O2SAT 96
[2018-12-05 04:00] VITALS: BP 142/71; O2SAT 97
[2018-12-05 05:00] VITALS: O2SAT 94
[2018-12-05] MEDS ORDERED: NORCO, ANEXSIA 5/325MG TABLET (HYDROcodone/ACETAMINOPHEN) PO PRN (06:00)
[2018-12-05 07:51] LABS: HEMATOCRIT 39.8 % (36.0-47.0); HEMOGLOBIN 13.8 g/dl (12.0-15.5); MEAN CORPUSCULAR HEMOGLOBIN 30.9 pg (27.0-33.0); MEAN CORPUSCULAR HGB CONC 34.7 g/dl (32.0-36.5); PLATELET COUNT, AUTOMATED 286 10^3/uL (150-450); RED BLOOD COUNT 4.47 10^6/uL (4.00-5.40); WHITE BLOOD COUNT 11.7 10^3/uL (4.0-10.0)
[2018-12-05] MEDS: hydrOXYzine 25 MG TAB PO SCH (08:45)
[2018-12-05] MEDS: **UNRESOLVED NON-FORMULARY MED ORDER XX SCH (08:46)
[2018-12-05 09:00] VITALS: BP 127/99
[2018-12-05] MEDS ORDERED: LEVEMIR (INSULIN DETEMIR) 1 UNITS/0.01ML SC SCH (09:00)
--- NOTE | 2018-12-08 16:43 | RO ---
DATE OF PROCEDURE: 12/04/2018 PREPROCEDURE DIAGNOSIS: Pain, bleeding, suspected adhesions. POSTPROCEDURE DIAGNOSIS: Pain, bleeding, suspected adhesions with marked anterior uterine and bladder adhesions and quite distorted abnormal anatomy, as well as some small fibroids. PROCEDURE: Robotic-assisted hysterectomy with bilateral salpingo-oophorectomy. Due the patient's abnormal anatomy, we also did cystourethroscopy. SURGEON: Fatuma Alfaro MD [employer] ARCHITECT: None. ANESTHESIA: General endotracheal anesthesia. DESCRIPTION OF PROCEDURE: Gill was brought to the operating room where sufficient general endotracheal anesthesia was induced. She was prepped, draped, and positioned in the usual sterile fashion. The uterine manipulator was placed and the Rhodes with the ability to backfill was placed. We then turned our attention to the abdomen. A transverse semilunar incision was made below the umbilicus. Sharp and blunt dissection were continued to the level of the rectus fascia, which was transversely incised, secured with #0 Vicryl retention sutures and the cannula for the robot placed under direct visualization in an open laparoscopic technique. CO2 insufflation was then begun. After adequate CO2 insufflation, the peritoneal cavity was visualized. There were some adhesions from the omentum to the anterior abdominal wall consistent with the patient's previous surgical history as well as dense adhesions of the uterus to the anterior abdominal wall. The uterus was flatly attached, the entire right round ligament across the right anterior uterus obliterating the space usually occupied by the bladder and the open space also usually present and there appeared to be a small lower uterine segment, posterior fibroid as well and this certainly was not as much of a finding as the other adhesions. My guess would be that these are postsurgical, but, of course, I cannot prove that. We placed two left-sided and one right-sided port. We placed the camera through one of the left-sided ports so that we could place #2-0 through the other ports in order to take down the anterior abdominal adhesions. And that also freed the port at the umbilicus, sewed those adhesions down and good hemostasis present, better access present and the patient in Trendelenburg as is typical, we turned our attention to docking the robot and after it was docked to working from the robot console. Working from the console, I started with the left infundibulopelvic ligament, which was less involved in the adhesions, and so I was able to free this, achieve a good distance from the ureters and bowel and to cauterize and transect it. We then proceeded through the left round ligament and some of the adhesions on the left side. We used cold dissection without cautery to dissect the uterus from the anterior abdominal wall and to create some normalization of that anatomy so that we could isolate the round ligament on the left side. We had the infundibulopelvic down because it had been readily identifiable and then we brought down a lot of those adhesions over the anterior uterus, working with cold scissors without cautery. We backfilled the bladder as needed, and it was just directly plastered to the uterus and a lot of that dissection had to be done sharply but with a little bit of traction, we were better able to see the line of adhesion and have a better idea of where the proper line of dissection should be. This work was, of course, done in a tedious careful fashion, working slowly so as to minimize risk of bladder injury and backfilling as often as needed. We had seen the ureter, especially on the left side, so it did not appear that this was distorting the ureters themselves since, of course, they are posterior and retroperitoneal, so well away from the main area of this area of adhesions. Once we had freed the bladder sufficiently, we cauterized and transected the left round ligament and brought down the broad ligament on the left, especially the posterior aspect, which facilitated more uterine mobility and then continued the dissection through those adhesions, again backfilling as needed. We were then eventually able to get enough uterine mobility to isolate the right infundibulopelvic. The right round ligament was entirely encased in these adhesions, and we did eventually also dissect it, but we started with the infundibulopelvic on the right side, carefully cauterized and transected it and then worked on the posterior broad ligament, dropping that ureter away on the right side, so that we could continue with the dissection through bladder tissues. And when we had dissected far enough to be able to better identify the round, we went ahead and cauterized and transected it as well and continued the dissection. When we reached the level of the uterine vasculature, we carefully cauterized this but did not cut it as of yet, so that we could continue dissecting the bladder away and, again, we did this dissection with cold scissors on the bladder, not with cautery because we were just so close. Once we had the bladder down to the level of the uterine manipulator cup, we then further cauterized the uterine vasculature and went posteriorly, started with our colpotomy over the posterior visual location of the vaginal cup. And as we worked laterally, we worked superior to the insertion of the uterosacral so that we could maintain a good connection there and then dissected around to each side to take the uterine vasculature. We then, having freed the posterior, and having more mobility of the uterus and even further elevating it cephalad, we were able to dissect across the left of the colpotomy, freeing the uterus which was delivered into the vagina along with the ovaries and tubes, which were, of course, attached. We then used V-Loc suture to close the vaginal cuff with good approximation and hemostasis achieved. We were careful to bring the edge of the vaginal epithelium up to that cuff and not just sew adhesions. Once we had closed the vaginal cuff, went ahead and undocked and brought the patient out of Trendelenburg so that we could do cystourethroscopy due to this patient's abnormal anatomy. Given her abnormal anatomy, decision was made to do cystourethroscopy, and using the cystoscope, we were able to visualize an intact bladder mucosa and we were able to see normal jets of urine from the ureters. We did give her methylene blue to facilitate this. And there was one area of bruising without transection, but I believe that was simply a small bruise to the bladder and there were no significant lesions. With a normal cystourethroscopy undertaken and completed, we then turned our attention to closing the wounds. We let the CO2 exit the abdomen, removed the instruments and trocars and closed the wound in the usual fashion. The umbilical wound was closed at the fascial layer with #0 Vicryl, and the skin on all four wounds was closed with a subcuticular stitch of #3-0 Vicryl with good approximation and hemostasis achieved and dry sterile dressings were then applied. Estimated blood loss for the procedure: About 100 mL Fluid replacement: Crystalloid. Complications: None. Condition and Disposition: Gill tolerated the procedure well and was recovering in the recovery room in good condition.
== END 2018-12-05 09:55 | disposition home or self-care (01) ==
LOC: M SDC 10:29 → M PED 20:15 → M SDC 12-05 09:55
PROVIDERS: ATTEND Obstetrics & Gynecology
DX: R10.2 Pelvic and perineal pain (principal); N72 Inflammatory disease of cervix uteri; D25.9 Leiomyoma of uterus, unspecified; I25.2 Old myocardial infarction; E10.9 Type 1 diabetes mellitus without complications; K58.8 Other irritable bowel syndrome; Z79.899 Other long term (current) drug therapy; Z79.4 Long term (current) use of insulin; Z91.040 Latex allergy status; F41.9 Anxiety disorder, unspecified; F32.9 Major depressive disorder, single episode, unspecified; Z88.0 Allergy status to penicillin; Z88.2 Allergy status to sulfonamides; Z88.7 Allergy status to serum and vaccine; Z91.012 Allergy to eggs
CPT/HCPCS: 36415; 58571; 85027; 86850; 86900; 86901; 88307; 96360; 96361; J0690; J1100; J1200; J1885; J2250; J2405; J2765; J3010; Q9968

== ENCOUNTER → 2018-12-19 | Outpatient (REF) | payer OTHER ==
[~2018-12-19] MED LIST changes: -ACET325C PO; +ACET325C5 PO; +FIORCAP3 PO; +MEDR4PAK PO; +ONDA4TAB6 PO
[2018-12-19 17:55] LABS: APPEARANCE, URINE CLEAR (CLEAR); BACTERIA, URINE AUTO NEGATIVE (NEGATIVE); BILIRUBIN, URINE AUTO NEGATIVE (NEGATIVE); BLOOD, URINE BLOOD 1+ (NEGATIVE); COLOR, URINE YELLOW (YELLOW); GLUCOSE, URINE (UA) AUTO 3+ mg/dL (NEGATIVE); KETONE, URINE AUTO NEGATIVE (NEGATIVE); LEUKOCYTE ESTERASE, URINE AUTO 1+ (NEGATIVE); NITRITE, URINE AUTO NEGATIVE (NEGATIVE); PROTEIN, URINE AUTO NEGATIVE (NEGATIVE); RBC, URINE AUTO 4 /HPF (0-3); SPECIFIC GRAVITY URINE AUTO 1.015 (1.002-1.035); SQUAMOUS EPITHELIAL CELL UR AU 0 /HPF (0-6); UROBILINOGEN, URINE AUTO 0.2 mg/dL (0.0-2.0); WBC, URINE AUTO 4 /HPF (0-3)
== END ==
LOC: M LAB REF 16:26
PROVIDERS: ATTEND Obstetrics & Gynecology
DX: R39.89 Other symptoms and signs involving the genitourinary system (principal)

== ENCOUNTER 2019-02-22 22:10 | Emergency (ER) | payer OTHER ==
[~2019-02-22] VITALS: Ht 160 cm; Wt 62.3 kg
[~2019-02-22 22:10] MED LIST changes: -FIORCAP3 PO; -MEDR4PAK PO; -ONDA4TAB6 PO
--- NOTE | 2019-02-22 23:40 | REPVR ---
PROCEDURE INFORMATION: Exam: CT Chest Without Contrast Exam date and time: 02/22/2019 11:14 PM Clinical history: 58 years old, female; Chest pain and chest wall pain; Right-sided chest pain; Additional info: Right sided chest wall pain TECHNIQUE: Imaging protocol: Computed tomography of the chest without contrast. 3D rendering: MIP reconstructed images were created and reviewed. Radiation optimization: All CT scans at this facility use at least one of these dose optimization techniques: automated exposure control; mA and/or kV adjustment per patient size (includes targeted exams where dose is matched to clinical indication); or iterative reconstruction. COMPARISON: CT Chest without contrast 11/04/2013 12:45 PM FINDINGS: Lungs: Moderate paraseptal and centrilobular emphysema most pronounced in the upper lung zones. COPD. Pleural space: Bilateral apical pleural-parenchymal scarring. Heart: Unremarkable. No cardiomegaly. No pericardial effusion. Aorta: Unremarkable. No aortic aneurysm. Lymph nodes: Unremarkable. No enlarged lymph nodes. Bones/joints: The spine demonstrates mild degenerative changes. Soft tissues: Unremarkable. IMPRESSION: 1. Moderate paraseptal and centrilobular emphysema most pronounced in the upper lung zones. COPD. 2. No acute pulmonary parenchymal findings. Electronically signed by: Issa Ugalde On 02/22/2019 23:39:30 PM
[2019-02-22] MEDS ORDERED: MEDR4PAK PO (23:58)
[2019-02-23] MEDS ORDERED: methylPREDNISolone 4 MG TAB PO ONE
[2019-02-23 00:08] VITALS: BP 136/86
== END 2019-02-23 00:09 | disposition home or self-care (01) ==
LOC: M ED 22:10
DX: R07.89 Other chest pain (principal); E11.9 Type 2 diabetes mellitus without complications; G43.909 Migraine, unspecified, not intractable, without status migrainosus; Z87.891 Personal history of nicotine dependence; Z90.49 Acquired absence of other specified parts of digestive tract; Z79.899 Other long term (current) drug therapy; Z79.4 Long term (current) use of insulin; Z88.0 Allergy status to penicillin; Z88.2 Allergy status to sulfonamides; Z88.8 Allergy status to other drugs, medicaments and biological substances; Z91.041 Radiographic dye allergy status

== ENCOUNTER 2019-04-21 12:01 | Emergency (ER) | payer OTHER ==
[~2019-04-21] VITALS: Ht 160 cm; Wt 62.9 kg
[~2019-04-21 12:01] MED LIST changes: +MEDR4PAK PO
[2019-04-21] MEDS ORDERED: BENA25CA4 PO (12:31)
[2019-04-21] MEDS ORDERED: CYCL10TA (12:31)
[2019-04-21] MEDS ORDERED: FIORICET TAB PO ONE (13:15)
[2019-04-21] MEDS ORDERED: ONDANSETRON 4 MG ORAL DISINTEGRATING TAB (Q0162 PER 1MG) PO ONE (13:15)
[2019-04-21 14:25] VITALS: BP 161/79
[2019-04-21] MEDS ORDERED: ONDA4TAB6 PO (14:48)
[2019-04-21] MEDS ORDERED: FIORCAP3 PO (14:48)
[2019-04-21] MEDS ORDERED: FIOR1CAP PO (15:57)
[2019-04-21] MEDS ORDERED: PROAAER10 INH (16:20)
== END 2019-04-21 14:52 | disposition home or self-care (01) ==
LOC: M ED 12:01
DX: G43.709 Chronic migraine without aura, not intractable, without status migrainosus (principal); Z79.4 Long term (current) use of insulin; Z79.51 Long term (current) use of inhaled steroids; Z79.899 Other long term (current) drug therapy; Z88.0 Allergy status to penicillin; Z88.1 Allergy status to other antibiotic agents; Z88.2 Allergy status to sulfonamides; Z88.6 Allergy status to analgesic agent; Z88.8 Allergy status to other drugs, medicaments and biological substances; Z91.012 Allergy to eggs; Z91.013 Allergy to seafood; Z91.040 Latex allergy status; Z91.041 Radiographic dye allergy status
CPT/HCPCS: 99283; Q0162

== ENCOUNTER → 2019-05-11 | Outpatient (REF) | payer OTHER ==
[~2019-05-11] MED LIST changes: +FIORCAP3 PO; +ONDA4TAB6 PO
[2019-05-11 19:57] LABS: MAU/CREAT RATIO 18.2 MCG/MG (0.0-30.0)
== END ==
LOC: M LAB REF 17:27
PROVIDERS: ATTEND Nurse Practitioner Family
DX: E11.65 Type 2 diabetes mellitus with hyperglycemia (principal)

== ENCOUNTER 2019-06-12 17:37 | Emergency (ER) | payer OTHER ==
[~2019-06-12] VITALS: Ht 160 cm; Wt 62.3 kg
[2019-06-12 18:32] LABS: INFLUENZA A AMPLIFICATION NEGATIVE (NEGATIVE); INFLUENZA B AMPLIFICATION NEGATIVE (NEGATIVE)
[2019-06-12] MEDS ORDERED: ALBUTEROL SULFATE 2.5 MG/0.5 ML INH NEB SOLN NEB ONE ×2 (19:30→21:00)
[2019-06-12] MEDS ORDERED: CHLO125TA (19:43)
[2019-06-12] MEDS ORDERED: ONDANSETRON 4 MG ORAL DISINTEGRATING TAB (Q0162 PER 1MG) PO ONE ×2 (19:45→21:15)
--- NOTE | 2019-06-12 20:14 | REP ---
PA and lateral chest: Comparison is 06/16/2018. The lung russo are clear. The cardiac size is normal. The ying, mediastinum, and skeletal structures are unremarkable. Impression: Negative PA and lateral chest. Electronically Signed by Esa Pereira MD 06/12/2019 08:05 P
[2019-06-12] MEDS ORDERED: AZIT-12 PO (20:57)
[2019-06-12] MEDS ORDERED: ONDA4TAB6 PO (20:57)
[2019-06-12] MEDS ORDERED: ALBU83IN NEB (20:57)
[2019-06-12] MEDS ORDERED: AZITHROMYCIN 250 MG TAB PO ONE (21:00)
[2019-06-12 21:16] VITALS: BP 133/69
== END 2019-06-12 21:21 | disposition home or self-care (01) ==
LOC: M ED 17:37
DX: J40 Bronchitis, not specified as acute or chronic (principal); E10.9 Type 1 diabetes mellitus without complications; J44.9 Chronic obstructive pulmonary disease, unspecified; E78.00 Pure hypercholesterolemia, unspecified; G43.909 Migraine, unspecified, not intractable, without status migrainosus; F41.9 Anxiety disorder, unspecified; F32.9 Major depressive disorder, single episode, unspecified; Z79.4 Long term (current) use of insulin; Z79.899 Other long term (current) drug therapy; Z88.0 Allergy status to penicillin; Z88.1 Allergy status to other antibiotic agents; Z88.2 Allergy status to sulfonamides; Z88.5 Allergy status to narcotic agent; Z88.6 Allergy status to analgesic agent; Z88.7 Allergy status to serum and vaccine; Z88.8 Allergy status to other drugs, medicaments and biological substances; Z91.012 Allergy to eggs; Z91.013 Allergy to seafood; Z91.040 Latex allergy status; Z91.041 Radiographic dye allergy status
CPT/HCPCS: 71046; 87502; 99283; Q0162

== ENCOUNTER 2019-08-15 06:26 | Emergency (ER) | payer OTHER ==
[~2019-08-15] VITALS: Ht 160 cm; Wt 62.3 kg
[~2019-08-15 06:26] MED LIST changes: +ALBU83IN NEB; +AZIT-12 PO; +CHLO125TA; +CYCL-707; +CYCL-707 PO; -CYCL10TA; -CYCL10TA PO
[2019-08-15 07:43] LABS: BASO # 0.1 10^3/uL (0.0-0.2); BASO % 0.8 % (0.0-1.0); EOS # 0.3 10^3/uL (0.0-0.5); EOS % 3.7 % (0.0-3.0); HEMATOCRIT 46.7 % (36.0-47.0); HEMOGLOBIN 15.7 g/dl (12.0-15.5); LYMPH % 40.5 % (24.0-44.0); MEAN CORPUSCULAR HEMOGLOBIN 30.3 pg (27.0-33.0); MEAN CORPUSCULAR HGB CONC 33.6 g/dl (32.0-36.5); MONO # 0.7 10^3/uL (0.0-0.8); MONO % 8.9 % (0.0-5.0); NEUTROPHILS # 3.4 10^3/uL (1.5-8.5); NEUTROPHILS % 45.8 % (36.0-66.0); PLATELET COUNT, AUTOMATED 280 10^3/uL (150-450); RED BLOOD COUNT 5.19 10^6/uL (4.00-5.40); WHITE BLOOD COUNT 7.4 10^3/uL (4.0-10.0)
[2019-08-15] MEDS ORDERED: NS 1,000 ML IV ONE (07:45)
[2019-08-15] MEDS ORDERED: METOCLOPRAMIDE INJ 10MG/2ML VIAL (J2765 PER 1) IV ONE (07:45)
[2019-08-15] MEDS ORDERED: ONDANSETRON 4MG/2ML VIAL IV ONE (08:15)
[2019-08-15 08:30] LABS: ALBUMIN 3.3 GM/DL (3.2-5.2); ALT/SGPT 20 U/L (12-78); BILIRUBIN,DIRECT < 0.1 MG/DL (0.0-0.2); BILIRUBIN,TOTAL 0.4 MG/DL (0.2-1.0); CK-MB VALUE MASS < 1.0 NG/ML (<3.6); CPK CREATINE PHOSPHOKINASE 163 U/L (26-192); LIPASE 39 U/L (73-393); MB/CK RELATIVE INDEX 0.61 (< OR =4); TROPONIN I < 0.02 NG/ML (< 0.10)
--- NOTE | 2019-08-15 09:01 | ECGEPIP ---
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
[2019-08-15 09:16] VITALS: BP 176/80
--- NOTE | 2019-08-15 10:11 | REP ---
CT ABDOMEN AND PELVIS WITHOUT CONTRAST: CT abdomen and pelvis performed without oral or IV contrast. Sagittal and coronal reconstruction images are performed. Visualized lung bases demonstrate mild fibrotic change. The liver is grossly unremarkable. The patient has had prior cholecystectomy. I do not see evidence of significant biliary dilatation. Spleen is normal in size. The adrenal glands are normal. Pancreas is grossly unremarkable. Kidneys demonstrate no hydronephrosis or nephrolithiasis. The ureters are not dilated. Bladder is grossly unremarkable with no stone. There is no abdominal aortic aneurysm. I see no adenopathy. There is no free air or free fluid. There is no bowel wall thickening. The appendix is normal. No pelvic mass is seen. Patient has had a hysterectomy. The visualized osseous structures are unremarkable. IMPRESSION: No acute abdominal or pelvic pathology identified. Appendix is normal. No free air or free fluid. Electronically Signed by Esa Haider MD 08/15/2019 10:50 A
== END 2019-08-15 09:53 | disposition home or self-care (01) ==
LOC: M ED 06:26
DX: R10.31 Right lower quadrant pain (principal); K66.0 Peritoneal adhesions (postprocedural) (postinfection); R94.31 Abnormal electrocardiogram [ECG] [EKG]; R11.0 Nausea; E10.9 Type 1 diabetes mellitus without complications; I10 Essential (primary) hypertension; J45.909 Unspecified asthma, uncomplicated; Z88.2 Allergy status to sulfonamides; Z88.1 Allergy status to other antibiotic agents; Z88.8 Allergy status to other drugs, medicaments and biological substances; Z88.7 Allergy status to serum and vaccine; Z91.040 Latex allergy status; Z79.4 Long term (current) use of insulin; Z79.899 Other long term (current) drug therapy
CPT/HCPCS: 74176; 80047; 80076; 81001; 82550; 82553; 83690; 84484; 85025; 93005; 93041; 96361; 96374; 99285; J2405

== ENCOUNTER 2019-09-11 22:32 | Emergency (ER) | payer OTHER ==
[~2019-09-11] VITALS: Ht 160 cm; Wt 62.7 kg
[2019-09-11] MEDS ORDERED: HYDR-4570 (22:49)
[2019-09-12 00:01] VITALS: BP 155/90
[2019-09-12] MEDS: ACETAMINOPH W/CODEINE #3 TAB UD PO ONE (00:22)
--- NOTE | 2019-09-12 08:02 | REP ---
Clinical: Trauma. Fall. Technique: Internal rotation, external rotation, and Y view of the left shoulder. Findings: Acromioclavicular and glenohumeral joints are intact. No acute fracture or dislocation. Subacromial space is normal. Heterotopic calcification in the soft tissues overlying the proximal humeral shaft most consistent with myositis ossificans from prior trauma. Impression: 1. No acute shoulder injury. 2. 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 Electronically Signed by Alfa Harris MD 09/12/2019 07:54 A
--- NOTE | 2019-09-15 19:46 | ED PDOC ---
Post-Departure Follow-Up left shoulder film faxed to [facility] for fu Goran Yanez MD September 15, 2019 19:46
== END 2019-09-12 00:28 | disposition home or self-care (01) ==
LOC: M ED 22:32
DX: M25.512 Pain in left shoulder (principal); G89.29 Other chronic pain; E11.9 Type 2 diabetes mellitus without complications; E78.5 Hyperlipidemia, unspecified; G43.909 Migraine, unspecified, not intractable, without status migrainosus; J44.9 Chronic obstructive pulmonary disease, unspecified; F41.9 Anxiety disorder, unspecified; F32.9 Major depressive disorder, single episode, unspecified; Z88.0 Allergy status to penicillin; Z88.1 Allergy status to other antibiotic agents; Z88.2 Allergy status to sulfonamides; Z88.5 Allergy status to narcotic agent; Z88.6 Allergy status to analgesic agent; Z88.7 Allergy status to serum and vaccine; Z88.8 Allergy status to other drugs, medicaments and biological substances; Z91.012 Allergy to eggs; Z91.013 Allergy to seafood; Z91.040 Latex allergy status; Z91.041 Radiographic dye allergy status; Z87.891 Personal history of nicotine dependence; Z79.4 Long term (current) use of insulin; Z79.899 Other long term (current) drug therapy

== ENCOUNTER 2019-10-14 20:57 | Emergency (ER) | payer OTHER ==
[~2019-10-14] VITALS: Ht 160 cm; Wt 63.3 kg
[~2019-10-14 20:57] MED LIST changes: +HYDR-4570
[2019-10-14] MEDS ORDERED: NS 1,000 ML IV ONE (21:45)
[2019-10-14 21:56] LABS: BASO # 0.1 10^3/uL (0.0-0.2); BASO % 0.6 % (0.0-1.0); EOS # 0.2 10^3/uL (0.0-0.5); EOS % 2.1 % (0.0-3.0); HEMATOCRIT 45.5 % (36.0-47.0); HEMOGLOBIN 15.3 g/dl (12.0-15.5); LYMPH # 3.1 10^3/uL (1.5-5.0); LYMPH % 30.6 % (24.0-44.0); MEAN CORPUSCULAR HEMOGLOBIN 30.5 pg (27.0-33.0); MEAN CORPUSCULAR HGB CONC 33.6 g/dl (32.0-36.5); MEAN CORPUSCULAR VOLUME 90.8 fl (80.0-96.0); MONO # 0.6 10^3/uL (0.0-0.8); MONO % 5.9 % (0.0-5.0); NEUTROPHILS # 6.2 10^3/uL (1.5-8.5); NEUTROPHILS % 60.5 % (36.0-66.0); PLATELET COUNT, AUTOMATED 307 10^3/uL (150-450); RED BLOOD COUNT 5.01 10^6/uL (4.00-5.40); WHITE BLOOD COUNT 10.2 10^3/uL (4.0-10.0)
[2019-10-14] MEDS ORDERED: MORPHINE 4 MG/ML 1ML VIAL/SYRINGE (J2270) IV ONE (22:00)
[2019-10-14] MEDS ORDERED: FIORICET TAB PO ONE (22:00)
[2019-10-14] MEDS ORDERED: ONDANSETRON 4MG/2ML VIAL IV ONE (22:00)
[2019-10-14 22:15] LABS: BLOOD UREA NITROGEN 7 MG/DL (7-18); CALCIUM LEVEL 8.6 MG/DL (8.5-10.1); CARBON DIOXIDE LEVEL 28 MEQ/L (21-32); CHLORIDE LEVEL 106 MEQ/L (98-107); CREATININE FOR GFR 0.72 MG/DL (0.55-1.30); GLOMERULAR FILTRATION RATE > 60.0 (>51); GLUCOSE, FASTING 176 MG/DL (70-100); MAGNESIUM LEVEL 2.3 MG/DL (1.8-2.4); POTASSIUM SERUM 3.9 MEQ/L (3.5-5.1); SODIUM LEVEL 138 MEQ/L (136-145)
[2019-10-14 23:18] VITALS: BP 119/65
[2019-10-15] MEDS ORDERED: LEVA1TAB2 PO (20:36)
== END 2019-10-14 23:19 | disposition home or self-care (01) ==
LOC: M ED 20:57
DX: G43.909 Migraine, unspecified, not intractable, without status migrainosus (principal); E11.9 Type 2 diabetes mellitus without complications; J44.9 Chronic obstructive pulmonary disease, unspecified; Z79.899 Other long term (current) drug therapy; Z79.4 Long term (current) use of insulin; Z88.0 Allergy status to penicillin; Z88.1 Allergy status to other antibiotic agents; Z88.2 Allergy status to sulfonamides; Z88.8 Allergy status to other drugs, medicaments and biological substances; Z91.012 Allergy to eggs; Z91.041 Radiographic dye allergy status; F17.210 Nicotine dependence, cigarettes, uncomplicated
CPT/HCPCS: 80048; 83735; 85025; 96361; 96374; 96375; 99284; J2270; J2405

== ENCOUNTER 2019-10-15 17:50 | Emergency (ER) | payer OTHER ==
[~2019-10-15] VITALS: Ht 160 cm; Wt 62.3 kg
[2019-10-15] MEDS ORDERED: LEVA1TAB2 PO (20:36)
[2019-10-15] MEDS ORDERED: LevoFLOXacin 500 MG TABLET As Ordered ONE (20:38)
[2019-10-15 20:45] VITALS: BP 160/86
[2019-10-15] MEDS ORDERED: LevoFLOXacin 500 MG TABLET PO ONE (20:45)
[2019-10-15] MEDS ORDERED: LevoFLOXacin 750 MG TABLET PO ONE (20:45)
--- NOTE | 2019-10-16 10:23 | REP ---
CHEST X-RAY: TWO VIEWS. HISTORY: Cough. COMPARISON STUDY: June 12, 2019 FINDINGS: The lungs are symmetrically aerated and clear. The pleural angles are sharp. Heart size is normal. Pulmonary vasculature is not increased. No acute bony abnormalities seen. There is dystrophic soft-tissue calcification in the soft tissues of the left upper arm noted incidentally. IMPRESSION: No active cardiopulmonary disease. Electronically Signed by Chucky Miller MD 10/16/2019 11:01 A
== END 2019-10-15 20:45 | disposition home or self-care (01) ==
LOC: M ED 17:50
DX: J44.1 Chronic obstructive pulmonary disease with (acute) exacerbation (principal); E11.9 Type 2 diabetes mellitus without complications; G43.909 Migraine, unspecified, not intractable, without status migrainosus; E78.5 Hyperlipidemia, unspecified; Z90.710 Acquired absence of both cervix and uterus; Z98.51 Tubal ligation status; Z79.899 Other long term (current) drug therapy; Z88.0 Allergy status to penicillin; Z88.1 Allergy status to other antibiotic agents; Z88.2 Allergy status to sulfonamides; Z88.6 Allergy status to analgesic agent; Z88.8 Allergy status to other drugs, medicaments and biological substances; Z91.041 Radiographic dye allergy status; Z91.040 Latex allergy status; Z88.7 Allergy status to serum and vaccine

== ENCOUNTER 2019-10-28 04:50 | Emergency (ER) | payer OTHER ==
[~2019-10-28] VITALS: Ht 160 cm; Wt 63.1 kg
[2019-10-28] MEDS ORDERED: ACETAMINOPH W/CODEINE #3 TAB UD PO ONE (05:45)
[2019-10-28] MEDS ORDERED: ONDANSETRON 4MG/2ML VIAL IV ONE (05:45)
[2019-10-28 06:22] LABS: VENOUS BASE EXCESS 2.2 (-2.0-2.0); VENOUS HCO3 28.9 MEQ/L (23.0-27.0); VENOUS O2 SATURATION 85.2 % (60.0-80.0); VENOUS PARTIAL PRESSURE CO2 52.5 mmHg (38.0-50.0); VENOUS PARTIAL PRESSURE O2 48.5 mmHg (30.0-50.0); VENOUS PH 7.358 UNITS (7.330-7.430); VENOUS TOTAL CO2 30.5 MEQ/L (24.0-28.0)
[2019-10-28] MEDS ORDERED: COMBIVENT RESPIMAT 100-20MCG INHALER 4GM INH ONE (06:30)
[2019-10-28 06:31] LABS: BASO # 0.1 10^3/uL (0.0-0.2); BASO % 0.5 % (0.0-1.0); EOS # 0.3 10^3/uL (0.0-0.5); EOS % 2.8 % (0.0-3.0); HEMATOCRIT 45.6 % (36.0-47.0); HEMOGLOBIN 15.3 g/dl (12.0-15.5); LYMPH # 4.5 10^3/uL (1.5-5.0); LYMPH % 43.8 % (24.0-44.0); MEAN CORPUSCULAR HEMOGLOBIN 30.4 pg (27.0-33.0); MEAN CORPUSCULAR HGB CONC 33.6 g/dl (32.0-36.5); MEAN CORPUSCULAR VOLUME 90.7 fl (80.0-96.0); MONO # 0.8 10^3/uL (0.0-0.8); MONO % 7.4 % (0.0-5.0); NEUTROPHILS # 4.7 10^3/uL (1.5-8.5); NEUTROPHILS % 45.2 % (36.0-66.0); PLATELET COUNT, AUTOMATED 306 10^3/uL (150-450); RED BLOOD COUNT 5.03 10^6/uL (4.00-5.40); WHITE BLOOD COUNT 10.4 10^3/uL (4.0-10.0)
[2019-10-28 06:57] LABS: ALBUMIN 3.4 GM/DL (3.2-5.2); ALT/SGPT 16 U/L (12-78); BILIRUBIN,DIRECT < 0.1 MG/DL (0.0-0.2); BILIRUBIN,TOTAL 0.3 MG/DL (0.2-1.0); BLOOD UREA NITROGEN 12 MG/DL (7-18); CARBON DIOXIDE LEVEL 29 MEQ/L (21-32); CHLORIDE LEVEL 110 MEQ/L (98-107); CREATININE FOR GFR 0.65 MG/DL (0.55-1.30); GLOMERULAR FILTRATION RATE > 60.0 (>51); GLUCOSE, FASTING 90 MG/DL (70-100); LIPASE 32 U/L (73-393); POTASSIUM SERUM 4.7 MEQ/L (3.5-5.1); SODIUM LEVEL 141 MEQ/L (136-145); TOTAL PROTEIN 7.2 GM/DL (6.4-8.2)
[2019-10-28] MEDS ORDERED: GUAI1SOL2 PO (08:42)
[2019-10-28 09:00] VITALS: BP 136/68
--- NOTE | 2019-10-28 10:01 | REP ---
CHEST, SINGLE VIEW: COMPARISON: 10/15/2019 There is diffuse interstitial fibrosis which appears stable. No consolidating infiltrate is seen. The heart is normal in size. The mediastinal silhouette is unchanged. IMPRESSION: No evidence of acute infiltrate. Electronically Signed by Esa Haider MD 10/29/2019 09:18 A
== END 2019-10-28 09:24 | disposition home or self-care (01) ==
LOC: M ED 04:50
DX: J06.9 Acute upper respiratory infection, unspecified (principal); E11.9 Type 2 diabetes mellitus without complications; I10 Essential (primary) hypertension; J44.9 Chronic obstructive pulmonary disease, unspecified; Z79.899 Other long term (current) drug therapy; Z79.4 Long term (current) use of insulin; Z88.0 Allergy status to penicillin; Z88.1 Allergy status to other antibiotic agents; Z88.2 Allergy status to sulfonamides; Z88.8 Allergy status to other drugs, medicaments and biological substances; Z91.012 Allergy to eggs; Z91.041 Radiographic dye allergy status
CPT/HCPCS: 71045; 80048; 80076; 82803; 83605; 83690; 85025; 87040; 87486; 87581; 87633; 87798; 93041; 94640; 96374; 99284; J2405

== ENCOUNTER 2019-12-29 15:25 | Emergency (ER) | payer OTHER ==
[~2019-12-29] VITALS: Ht 160 cm; Wt 63.2 kg
[~2019-12-29 15:25] MED LIST changes: +GUAI1SOL2 PO
[2019-12-29] MEDS ORDERED: CYCLOBENZAPRINE 10MG TABLET PO ONE (16:30)
--- NOTE | 2019-12-29 17:52 | REPVR ---
PROCEDURE INFORMATION: Exam: XR Bilateral Hips with Pelvis when Performed Exam date and time: 12/29/2019 4:29 PM Age: 59 years old Clinical indication: Hip pain and pelvic pain; Bilateral; Additional info: Bilat hip pain TECHNIQUE: Imaging protocol: XR bilateral hips with pelvis when performed. Views: 2 views. COMPARISON: CT ABD PELVIS W/O CONTRAST 08/15/2019 8:43 AM FINDINGS: Bones/joints: Both hip joint spaces are well maintained. No fracture or osteonecrosis. Mild degenerative spondylosis of the lower lumbar spine. Normal sacroiliac joints and pubic symphysis. Normal bone density. Soft tissues: Extensive soft tissue calcifications within right and left buttock. Radiodensities superimposed over the femoral heads and necks is likely secondary to the buttock soft tissue calcifications. If there is a clinical concern for intraosseous lesion then consider further evaluation with bone scan or MRI. IMPRESSION: No acute bone or joint abnormality. Electronically signed by: James Aguirre On 12/29/2019 17:51:57 PM
[2019-12-29] MEDS ORDERED: CYCL-707 PO (18:02)
[2019-12-29 18:09] VITALS: BP 174/94
== END 2019-12-29 18:10 | disposition home or self-care (01) ==
LOC: M ED 15:25
DX: M54.5 Low back pain (principal); E10.9 Type 1 diabetes mellitus without complications; J45.909 Unspecified asthma, uncomplicated; Z79.899 Other long term (current) drug therapy; Z79.4 Long term (current) use of insulin; Z88.0 Allergy status to penicillin; Z88.1 Allergy status to other antibiotic agents; Z88.2 Allergy status to sulfonamides; Z88.8 Allergy status to other drugs, medicaments and biological substances; Z91.012 Allergy to eggs; Z91.018 Allergy to other foods; Z91.041 Radiographic dye allergy status

== ENCOUNTER 2020-01-26 00:54 | Emergency (ER) | payer OTHER ==
[~2020-01-26] VITALS: Ht 160 cm; Wt 64.3 kg
[2020-01-26] MEDS ORDERED: BUTA-198 (01:02)
[2020-01-26 01:38] LABS: BASO # 0.1 10^3/uL (0.0-0.2); BASO % 0.7 % (0.0-1.0); EOS # 0.2 10^3/uL (0.0-0.5); EOS % 1.8 % (0.0-3.0); HEMATOCRIT 47.5 % (36.0-47.0); HEMOGLOBIN 15.6 g/dl (12.0-15.5); LYMPH # 4.5 10^3/uL (1.5-5.0); LYMPH % 37.1 % (24.0-44.0); MEAN CORPUSCULAR HEMOGLOBIN 29.8 pg (27.0-33.0); MEAN CORPUSCULAR HGB CONC 32.8 g/dl (32.0-36.5); MEAN CORPUSCULAR VOLUME 90.6 fl (80.0-96.0); MONO # 0.8 10^3/uL (0.0-0.8); MONO % 6.2 % (0.0-5.0); NEUTROPHILS # 6.5 10^3/uL (1.5-8.5); PLATELET COUNT, AUTOMATED 332 10^3/uL (150-450); RED BLOOD COUNT 5.24 10^6/uL (4.00-5.40)
[2020-01-26 02:07] LABS: ALBUMIN 3.7 GM/DL (3.2-5.2); ALT/SGPT 21 U/L (12-78); BILIRUBIN,DIRECT < 0.1 MG/DL (0.0-0.2); BILIRUBIN,TOTAL 0.3 MG/DL (0.2-1.0); BLOOD UREA NITROGEN 11 MG/DL (7-18); CALCIUM LEVEL 8.9 MG/DL (8.5-10.1); CARBON DIOXIDE LEVEL 26 MEQ/L (21-32); CHLORIDE LEVEL 106 MEQ/L (98-107); CREATININE FOR GFR 0.76 MG/DL (0.55-1.30); GLOMERULAR FILTRATION RATE > 60.0 (>51); GLUCOSE, FASTING 211 MG/DL (70-100); LIPASE 33 U/L (73-393); POTASSIUM SERUM 4.1 MEQ/L (3.5-5.1); SODIUM LEVEL 139 MEQ/L (136-145); TOTAL PROTEIN 7.3 GM/DL (6.4-8.2)
[2020-01-26] MEDS ORDERED: MORPHINE 4 MG/ML 1ML VIAL/SYRINGE (J2270) IV PRN (04:30)
[2020-01-26] MEDS ORDERED: ONDANSETRON 4MG/2ML VIAL IV ONE (04:30)
--- NOTE | 2020-01-26 04:56 | REPVR ---
PROCEDURE INFORMATION: Exam: CT Abdomen And Pelvis Without Contrast Exam date and time: 01/26/2020 4:36 AM Age: 59 years old Clinical indication: Abdominal pain; Additional info: Right sided abd pain, nausea, contrast allergy TECHNIQUE: Imaging protocol: Computed tomography of the abdomen and pelvis without contrast. Radiation optimization: All CT scans at this facility use at least one of these dose optimization techniques: automated exposure control; mA and/or kV adjustment per patient size (includes targeted exams where dose is matched to clinical indication); or iterative reconstruction. COMPARISON: CT ABD PELVIS W/O CONTRAST 08/15/2019 8:43 AM FINDINGS: Lungs: Some emphysematous changes with linear atelectases and or scars seen in the imaged lung bases coupled with minimal bronchiectasis. Mediastinal space: There is a small sliding hiatal hernia. Liver: Normal. No mass. Gallbladder and bile ducts: The patient is status post cholecystectomy. The CBD appear to be dilated measuring around 9 mm, apparently more prominent than the prior exam. There is no biliary ductal dilatation. Pancreas: Normal. No ductal dilation. Spleen: Normal. No splenomegaly. Adrenals: Normal. No mass. Kidneys and ureters: Normal. No hydronephrosis. Stomach and bowel: Multiple central and proximal small bowel loops appear to be featureless with questionable wall thickening. Appendix: No evidence of appendicitis. Intraperitoneal space: Unremarkable. No free air. No significant fluid collection. Vasculature: Unremarkable. No abdominal aortic aneurysm. Lymph nodes: Unremarkable. No enlarged lymph nodes. Urinary bladder: Unremarkable as visualized. Reproductive: The patient is status post hysterectomy. Bones/joints: There is lumbar spine scoliosis. Soft tissues: Unremarkable. IMPRESSION: 1. Status post cholecystectomy. Extrahepatic biliary tree appear to be mildly dilated at 9 mm more prominent than the prior exam of August 15, 2019. Correlate with patient's clinical history, symptoms, LFTs and bilirubin level. If clinically indicated MRCP may be obtained for further evaluation. 2. Small sliding hiatal hernia. 3. Questionable thickening of some small bowel loops with could be attributed to under distension. Correlate clinically for enteritis. 4. Emphysematous and chronic changes at the imaged lung bases. Electronically signed by: Brian Botello On 01/26/2020 04:55:44 AM
[2020-01-26] MEDS ORDERED: TYLETAB14 PO (06:20)
[2020-01-26] MEDS ORDERED: ACETAMINOPH W/CODEINE #3 TAB UD PO ONE (06:30)
[2020-01-26 06:41] VITALS: BP 152/78
--- NOTE | 2020-01-27 12:39 | ED PDOC ---
Post-Departure Follow-Up ft [facility] faxed formal report of ct abd/p for fu Goran Yanez MD Jan 27, 2020 12:38
== END 2020-01-26 06:43 | disposition home or self-care (01) ==
LOC: M ED 00:54
DX: S39.011A Strain of muscle, fascia and tendon of abdomen, initial encounter (principal); Y92.9 Unspecified place or not applicable; Y93.E5 Activity, floor mopping and cleaning; Y99.9 Unspecified external cause status; E11.9 Type 2 diabetes mellitus without complications; J44.9 Chronic obstructive pulmonary disease, unspecified; K44.9 Diaphragmatic hernia without obstruction or gangrene; Z79.51 Long term (current) use of inhaled steroids; Z79.899 Other long term (current) drug therapy; Z79.4 Long term (current) use of insulin; Z88.0 Allergy status to penicillin; Z88.1 Allergy status to other antibiotic agents; Z88.2 Allergy status to sulfonamides; Z88.6 Allergy status to analgesic agent; Z88.8 Allergy status to other drugs, medicaments and biological substances; Z91.012 Allergy to eggs; Z91.013 Allergy to seafood; Z91.041 Radiographic dye allergy status
CPT/HCPCS: 74176; 80048; 80076; 83690; 85025; 96374; 96375; 99284; J2270; J2405

== ENCOUNTER 2020-02-12 00:09 | Emergency (ER) | payer OTHER ==
[~2020-02-12] VITALS: Ht 160 cm; Wt 64.5 kg
[~2020-02-12 00:09] MED LIST changes: +BUTA-198; +TYLETAB14 PO
[2020-02-12 02:22] LABS: BASO # 0.1 10^3/uL (0.0-0.2); BASO % 0.6 % (0.0-1.0); EOS # 0.2 10^3/uL (0.0-0.5); EOS % 2.4 % (0.0-3.0); HEMATOCRIT 46.9 % (36.0-47.0); HEMOGLOBIN 15.1 g/dl (12.0-15.5); LYMPH # 3.5 10^3/uL (1.5-5.0); LYMPH % 37.9 % (24.0-44.0); MEAN CORPUSCULAR HEMOGLOBIN 29.2 pg (27.0-33.0); MEAN CORPUSCULAR HGB CONC 32.2 g/dl (32.0-36.5); MEAN CORPUSCULAR VOLUME 90.5 fl (80.0-96.0); MONO # 0.7 10^3/uL (0.0-0.8); MONO % 7.8 % (0.0-5.0); NEUTROPHILS # 4.7 10^3/uL (1.5-8.5); PLATELET COUNT, AUTOMATED 281 10^3/uL (150-450); RED BLOOD COUNT 5.18 10^6/uL (4.00-5.40); WHITE BLOOD COUNT 9.3 10^3/uL (4.0-10.0)
[2020-02-12] MEDS ORDERED: MORPHINE 4 MG/ML 1ML VIAL/SYRINGE (J2270) IV ONE (03:00)
[2020-02-12] MEDS ORDERED: ONDANSETRON 4MG/2ML VIAL IV ONE (03:00)
[2020-02-12 03:08] LABS: ALBUMIN 3.6 GM/DL (3.2-5.2); ALT/SGPT 16 U/L (12-78); BILIRUBIN,DIRECT < 0.1 MG/DL (0.0-0.2); BILIRUBIN,TOTAL 0.5 MG/DL (0.2-1.0); LIPASE 29 U/L (73-393); TOTAL PROTEIN 7.2 GM/DL (6.4-8.2)
[2020-02-12] MEDS ORDERED: DEXTROSE 50% 50 ML SYRINGE IV STA (03:34)
[2020-02-12] MEDS ORDERED: DEXTROSE 50% 50 ML SYRINGE As Ordered ONE (03:36)
--- NOTE | 2020-02-12 03:53 | REPVR ---
PROCEDURE INFORMATION: Exam: CT Abdomen And Pelvis Without Contrast Exam date and time: 02/12/2020 2:59 AM Age: 59 years old Clinical indication: Abdominal pain; Localized; Right; Additional info: Right sided abdominal pain TECHNIQUE: Imaging protocol: Computed tomography of the abdomen and pelvis without contrast. Radiation optimization: All CT scans at this facility use at least one of these dose optimization techniques: automated exposure control; mA and/or kV adjustment per patient size (includes targeted exams where dose is matched to clinical indication); or iterative reconstruction. COMPARISON: CT ABD PELVIS W/O CONTRAST 2020-01-26 04:32 FINDINGS: Limitations: Study is limited by the absence of contrast. Limited by patient's body habitus. Liver: Normal. No mass. Gallbladder and bile ducts: Cholecystectomy clips in the right upper quadrant. Pancreas: Normal. No ductal dilation. Spleen: Normal. No splenomegaly. Adrenals: Normal. No mass. Kidneys and ureters: No urolithiasis or hydronephrosis, unremarkable kidneys. Stomach and bowel: Unremarkable. No obstruction. No mucosal thickening. Appendix: Normal appendix. Intraperitoneal space: Unremarkable. No free air. No significant fluid collection. Vasculature: Unremarkable. No abdominal aortic aneurysm. Lymph nodes: Unremarkable. No enlarged lymph nodes. Urinary bladder: Unremarkable as visualized. Reproductive: Hysterectomy. Bones/joints: Moderate L4-L5 spinal stenosis. Soft tissues: Multiple soft tissue gluteal calcifications. Other findings: Mild gastroesophageal junction thickening. IMPRESSION: 1. No acute abnormality. 2. Mild gastroesophageal junction thickening. 3. Normal appendix. Electronically signed by: Byron Duffy On 02/12/2020 03:53:13 AM
[2020-02-12 04:09] LABS: BLOOD UREA NITROGEN 8 MG/DL (7-18); CALCIUM LEVEL 8.5 MG/DL (8.5-10.1); CARBON DIOXIDE LEVEL 28 MEQ/L (21-32); CHLORIDE LEVEL 109 MEQ/L (98-107); CREATININE FOR GFR 0.61 MG/DL (0.55-1.30); GLOMERULAR FILTRATION RATE > 60.0 (>51); GLUCOSE, FASTING 42 MG/DL (70-100); POTASSIUM SERUM 4.1 MEQ/L (3.5-5.1); SODIUM LEVEL 142 MEQ/L (136-145)
[2020-02-12 05:31] VITALS: BP 142/68
== END 2020-02-12 05:34 | disposition home or self-care (01) ==
LOC: M ED 00:09
DX: R10.9 Unspecified abdominal pain (principal); E10.649 Type 1 diabetes mellitus with hypoglycemia without coma; J45.909 Unspecified asthma, uncomplicated; Z79.899 Other long term (current) drug therapy; Z79.4 Long term (current) use of insulin; Z88.0 Allergy status to penicillin; Z88.1 Allergy status to other antibiotic agents; Z88.2 Allergy status to sulfonamides; Z88.8 Allergy status to other drugs, medicaments and biological substances; Z91.012 Allergy to eggs; Z91.041 Radiographic dye allergy status
CPT/HCPCS: 74176; 80047; 80048; 80076; 81001; 83690; 85025; 96374; 96375; 99284; J2270; J2405

== ENCOUNTER 2020-07-27 14:12 | Emergency (ER) | payer OTHER ==
[~2020-07-27] VITALS: Ht 160 cm; Wt 65.0 kg
[~2020-07-27 14:12] MED LIST changes: +MIRT-62 PO; +PLEC3TAB PO; -REME15TA PO; -SIME180C PO; +SIME180C25 PO; -TRUL3TAB PO
[2020-07-27 16:47] LABS: BASO # 0.1 10^3/uL (0.0-0.2); BASO % 0.6 % (0.0-1.0); EOS # 0.2 10^3/uL (0.0-0.5); EOS % 1.5 % (0.0-3.0); HEMATOCRIT 46.5 % (36.0-47.0); HEMOGLOBIN 15.7 g/dl (12.0-15.5); LYMPH # 3.3 10^3/uL (1.5-5.0); LYMPH % 31.8 % (24.0-44.0); MEAN CORPUSCULAR HEMOGLOBIN 30.2 pg (27.0-33.0); MEAN CORPUSCULAR HGB CONC 33.8 g/dl (32.0-36.5); MEAN CORPUSCULAR VOLUME 89.4 fl (80.0-96.0); MONO # 0.7 10^3/uL (0.0-0.8); MONO % 6.6 % (2.0-8.0); NEUTROPHILS # 6.2 10^3/uL (1.5-8.5); NEUTROPHILS % 59.2 % (36.0-66.0); PLATELET COUNT, AUTOMATED 304 10^3/uL (150-450); WHITE BLOOD COUNT 10.5 10^3/uL (4.0-10.0)
[2020-07-27] MEDS ORDERED: ONDANSETRON 4MG/2ML VIAL IV ONE ×2 (16:50→19:20)
[2020-07-27 17:14] LABS: BLOOD UREA NITROGEN 9 MG/DL (7-18); CALCIUM LEVEL 8.8 MG/DL (8.5-10.1); CARBON DIOXIDE LEVEL 30 MEQ/L (21-32); CHLORIDE LEVEL 107 MEQ/L (98-107); CREATININE FOR GFR 0.57 MG/DL (0.55-1.30); GLOMERULAR FILTRATION RATE > 60.0 (>51); GLUCOSE, FASTING 108 MG/DL (70-100); POTASSIUM SERUM 3.9 MEQ/L (3.5-5.1); SODIUM LEVEL 139 MEQ/L (136-145)
[2020-07-27] MEDS ORDERED: FIORICET TAB PO ONE (18:15)
[2020-07-27] MEDS ORDERED: FIOR1CAP PO (19:35)
[2020-07-27 19:44] VITALS: BP 166/84
== END 2020-07-27 19:47 | disposition home or self-care (01) ==
LOC: M ED 14:12
DX: R51.9 Headache, unspecified (principal); E11.9 Type 2 diabetes mellitus without complications; J44.9 Chronic obstructive pulmonary disease, unspecified; J45.909 Unspecified asthma, uncomplicated; F33.9 Major depressive disorder, recurrent, unspecified; F41.9 Anxiety disorder, unspecified; E78.00 Pure hypercholesterolemia, unspecified; Z79.899 Other long term (current) drug therapy; Z79.4 Long term (current) use of insulin; Z88.0 Allergy status to penicillin; Z88.1 Allergy status to other antibiotic agents; Z88.2 Allergy status to sulfonamides; Z88.8 Allergy status to other drugs, medicaments and biological substances; Z91.012 Allergy to eggs; Z91.041 Radiographic dye allergy status
CPT/HCPCS: 80048; 85025; 96374; 96376; 99283; J2405

== ENCOUNTER 2020-11-12 07:20 | Emergency (ER) | payer OTHER ==
[~2020-11-12] VITALS: Ht 160 cm; Wt 67.3 kg
[2020-11-12] MEDS ORDERED: ACETAMINOPHEN 325 MG TAB PO ONE (08:20)
[2020-11-12] MEDS ORDERED: ALBUTEROL SULFATE 2.5 MG/0.5 ML INH NEB SOLN NEB ONE (08:20)
[2020-11-12 09:54] LABS: RSV AMPLIFICATION NEGATIVE (NEGATIVE)
--- NOTE | 2020-11-12 10:14 | REP ---
INDICATION: DYSPNEA/COUGH. COMPARISON: Comparison chest x-ray October 28, 2019. TECHNIQUE: Two views.. FINDINGS: The lungs are somewhat hyperinflated but free of infiltrate. The pleural angles are sharp. Heart size is normal. Pulmonary vasculature is not increased. No acute bony abnormality. There are surgical clips in right upper quadrant of the abdomen. IMPRESSION: Hyperinflation, no active disease.. <Electronically signed by Imer Miller > 11/12/20 101
[2020-11-12] MEDS ORDERED: ACET1TAB16 PO (11:05)
[2020-11-12 11:15] VITALS: BP 142/100
--- NOTE | 2020-11-12 21:28 | ECGEPIP ---
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
== END 2020-11-12 11:22 | disposition home or self-care (01) ==
LOC: M ED 07:20
DX: J06.9 Acute upper respiratory infection, unspecified (principal); I10 Essential (primary) hypertension; R91.8 Other nonspecific abnormal finding of lung field; E11.9 Type 2 diabetes mellitus without complications; J44.9 Chronic obstructive pulmonary disease, unspecified; J45.909 Unspecified asthma, uncomplicated; G43.909 Migraine, unspecified, not intractable, without status migrainosus; K58.9 Irritable bowel syndrome, unspecified; I25.2 Old myocardial infarction; Z79.899 Other long term (current) drug therapy; Z79.4 Long term (current) use of insulin; Z88.0 Allergy status to penicillin; Z88.1 Allergy status to other antibiotic agents; Z88.2 Allergy status to sulfonamides; Z88.8 Allergy status to other drugs, medicaments and biological substances; Z91.012 Allergy to eggs; Z91.041 Radiographic dye allergy status; Z87.891 Personal history of nicotine dependence

== ENCOUNTER 2020-11-24 17:21 | Emergency (ER) | payer OTHER ==
[~2020-11-24] VITALS: Ht 160 cm; Wt 67.3 kg
[~2020-11-24 17:21] MED LIST changes: +ACET1TAB16 PO; -DOXY100C PO; +DOXY100C3 PO; -HYDR-4570; +HYDR-4570 PO; -REST0.05 OP
[2020-11-24] MEDS ORDERED: AZIT-12 PO (21:19)
[2020-11-24] MEDS ORDERED: AZITHROMYCIN 250MG TABLET PO ONE (21:20)
[2020-11-24 21:43] VITALS: BP 156/98
[2021-05-18] MEDS ORDERED: CYCL-707 PO (13:11)
[2021-05-18] MEDS ORDERED: BENA25CA4 PO (13:11)
[2021-05-18] MEDS ORDERED: ERGO500029 PO (13:11)
[2021-05-18] MEDS ORDERED: ACIP1TAB PO (13:11)
[2021-05-18] MEDS ORDERED: PLEC3TAB PO (13:11)
== END 2020-11-24 21:46 | disposition home or self-care (01) ==
LOC: M ED 17:21
DX: R05 Cough (principal); J06.9 Acute upper respiratory infection, unspecified; J45.909 Unspecified asthma, uncomplicated; E78.5 Hyperlipidemia, unspecified; I25.2 Old myocardial infarction; G89.29 Other chronic pain; M54.9 Dorsalgia, unspecified; Z79.899 Other long term (current) drug therapy; Z79.4 Long term (current) use of insulin; Z88.0 Allergy status to penicillin; Z88.1 Allergy status to other antibiotic agents; Z88.2 Allergy status to sulfonamides; Z88.8 Allergy status to other drugs, medicaments and biological substances; Z91.012 Allergy to eggs; Z91.041 Radiographic dye allergy status; F17.210 Nicotine dependence, cigarettes, uncomplicated

== ENCOUNTER → 2020-12-23 | Outpatient (REF) | payer OTHER ==
[~2020-12-23] MED LIST changes: +HYDR-4570; -HYDR-4570 PO; +REST0.05 OP
[2020-12-23 17:57] LABS: CREATININE, URINE 59.3 MG/DL; MALB URINE SIEMENS 8.6 MG/L; MAU/CREAT RATIO 14.5 MCG/MG (0.0-30.0)
== END ==
LOC: M LAB REF 16:51
PROVIDERS: ATTEND Nurse Practitioner Family
DX: E11.65 Type 2 diabetes mellitus with hyperglycemia (principal)

== ENCOUNTER 2021-06-11 21:47 | Emergency (ER) | payer OTHER ==
[~2021-06-11] VITALS: Ht 160 cm; Wt 66.8 kg
[2021-06-11 21:47] VITALS: BP 175/87
[~2021-06-11 21:47] MED LIST changes: +ACIP1TAB PO; +ERGO500029 PO; -HYDR-4570; +HYDR-4570 PO; -REST0.05 OP
[2021-06-11] MEDS ORDERED: ONDANSETRON 4MG/2ML VIAL IV ONE (22:35)
[2021-06-11] MEDS ORDERED: MORPHINE 4 MG/ML 1ML VIAL/SYRINGE (J2270) IV ONE (22:35)
[2021-06-11] MEDS ORDERED: NS 1,000 ML IV ONE (22:35)
[2021-06-11] MEDS ORDERED: ACETAMINOPH W/CODEINE #3 TAB UD PO ONE (23:50)
[2021-06-11] MEDS ORDERED: GUAI1SOL2 PO (23:52)
== END 2021-06-12 00:30 | disposition home or self-care (01) ==
LOC: M ED 21:47
DX: J10.89 Influenza due to other identified influenza virus with other manifestations (principal); E11.9 Type 2 diabetes mellitus without complications; J44.9 Chronic obstructive pulmonary disease, unspecified; I25.2 Old myocardial infarction; I25.10 Atherosclerotic heart disease of native coronary artery without angina pectoris; E78.5 Hyperlipidemia, unspecified; F33.9 Major depressive disorder, recurrent, unspecified; Z79.899 Other long term (current) drug therapy; Z79.4 Long term (current) use of insulin; Z88.0 Allergy status to penicillin; Z88.1 Allergy status to other antibiotic agents; Z88.2 Allergy status to sulfonamides; Z88.8 Allergy status to other drugs, medicaments and biological substances; Z91.012 Allergy to eggs; Z91.041 Radiographic dye allergy status; F17.210 Nicotine dependence, cigarettes, uncomplicated
CPT/HCPCS: 87798; 96361; 96374; 96375; 99283; J2270; J2405

== ENCOUNTER 2021-07-20 06:37 | Day surgery (SDC) | payer OTHER ==
[~2021-07-20] VITALS: Ht 160 cm; Wt 65.8 kg
[~2021-07-20 06:37] MED LIST changes: +LIDOCAINE 2% 100MG/5ML SDV (FOR ANES.) As Ordered ONE; +NS 1,000 ML IV ONE; +propofoL 200 MG/20 ML VIAL As Ordered ONE
[2021-07-20] MEDS ORDERED: fentaNYL 100 MCG/2 ML INJECTION As Ordered ONE (07:18)
[2021-07-20 08:35] VITALS: BP 155/72
== END 2021-07-20 08:50 | disposition home or self-care (01) ==
LOC: M OPP 06:37
PROVIDERS: ATTEND Internal Medicine Gastroenterology
DX: K31.84 Gastroparesis (principal); B96.81 Helicobacter pylori [H. pylori] as the cause of diseases classified elsewhere; R12 Heartburn; Z79.4 Long term (current) use of insulin; Z79.899 Other long term (current) drug therapy; Z88.0 Allergy status to penicillin; Z88.2 Allergy status to sulfonamides; Z88.5 Allergy status to narcotic agent; Z88.7 Allergy status to serum and vaccine; Z91.012 Allergy to eggs; Z91.013 Allergy to seafood; Z91.040 Latex allergy status; Z91.041 Radiographic dye allergy status; Z87.891 Personal history of nicotine dependence
CPT/HCPCS: 43239; 88305; 88342; J3010

== ENCOUNTER 2021-07-25 14:51 | Emergency (ER) | payer OTHER ==
[~2021-07-25] VITALS: Ht 160 cm; Wt 66.0 kg
[~2021-07-25 14:51] MED LIST changes: -ACET1TAB16 PO; +ACET300T48 PO; -LIDOCAINE 2% 100MG/5ML SDV (FOR ANES.) As Ordered ONE; -NS 1,000 ML IV ONE; -propofoL 200 MG/20 ML VIAL As Ordered ONE
[2021-07-25 16:03] LABS: VENOUS BASE EXCESS -1.3 (-2.0-2.0); VENOUS HCO3 23.4 MEQ/L (23.0-27.0); VENOUS O2 SATURATION 86.4 % (60.0-80.0); VENOUS PARTIAL PRESSURE CO2 39.6 mmHg (38.0-50.0); VENOUS PARTIAL PRESSURE O2 50.6 mmHg (30.0-50.0); VENOUS STANDARD HCO3 23.1 MEQ/L; VENOUS TOTAL CO2 24.6 MEQ/L (24.0-28.0)
[2021-07-25 16:07] LABS: BASO % 0.2 % (0.0-1.0); EOS # 0.1 10^3/uL (0.0-0.5); EOS % 0.6 % (0.0-3.0); HEMATOCRIT 47.7 % (36.0-47.0); LYMPH # 0.7 10^3/uL (1.5-5.0); LYMPH % 4.9 % (24.0-44.0); MEAN CORPUSCULAR HEMOGLOBIN 29.7 pg (27.0-33.0); MEAN CORPUSCULAR HGB CONC 33.5 g/dl (32.0-36.5); MEAN CORPUSCULAR VOLUME 88.7 fl (80.0-96.0); MONO # 0.6 10^3/uL (0.0-0.8); MONO % 4.1 % (2.0-8.0); NEUTROPHILS % 89.8 % (36.0-66.0); PLATELET COUNT, AUTOMATED 319 10^3/uL (150-450); RED BLOOD COUNT 5.38 10^6/uL (4.00-5.40); WHITE BLOOD COUNT 14.4 10^3/uL (4.0-10.0)
[2021-07-25] MEDS ORDERED: ONDANSETRON 4MG/2ML VIAL IV ONE (16:25)
[2021-07-25] MEDS ORDERED: NS 1,000 ML IV ONE (16:25)
[2021-07-25] MEDS: ACETAMINOPHEN 500 MG TAB PO ONE ×2 (16:31→16:39)
[2021-07-25] MEDS ORDERED: DICYCLOMINE INJ 20MG/2ML (J0500) IM ONE (17:15)
[2021-07-25 17:56] LABS: BLOOD UREA NITROGEN 14 MG/DL (7-18); CALCIUM LEVEL 8.4 MG/DL (8.5-10.1); CARBON DIOXIDE LEVEL 26 MEQ/L (21-32); CHLORIDE LEVEL 104 MEQ/L (98-107); CREATININE FOR GFR 0.83 MG/DL (0.55-1.30); GLOMERULAR FILTRATION RATE > 60.0 (>51); GLUCOSE, FASTING 287 MG/DL (70-100); POTASSIUM SERUM 4.6 MEQ/L (3.5-5.1); SODIUM LEVEL 136 MEQ/L (136-145)
[2021-07-25 18:52] VITALS: BP 170/82
== END 2021-07-25 18:53 | disposition home or self-care (01) ==
LOC: M ED 14:51 → EDBD 14:51 → M ED 18:53
DX: R10.9 Unspecified abdominal pain (principal); R11.2 Nausea with vomiting, unspecified; E10.9 Type 1 diabetes mellitus without complications; I10 Essential (primary) hypertension; J45.909 Unspecified asthma, uncomplicated; I25.2 Old myocardial infarction; E78.5 Hyperlipidemia, unspecified; Z86.19 Personal history of other infectious and parasitic diseases; Z87.19 Personal history of other diseases of the digestive system; Z88.0 Allergy status to penicillin; Z88.1 Allergy status to other antibiotic agents; Z88.2 Allergy status to sulfonamides; Z88.7 Allergy status to serum and vaccine; Z88.8 Allergy status to other drugs, medicaments and biological substances; Z91.012 Allergy to eggs; Z91.040 Latex allergy status; Z91.041 Radiographic dye allergy status; Z79.899 Other long term (current) drug therapy; Z79.4 Long term (current) use of insulin; Z79.84 Long term (current) use of oral hypoglycemic drugs; Z87.891 Personal history of nicotine dependence
CPT/HCPCS: 74176; 80048; 81001; 82803; 83605; 85025; 96372; 96374; 99284; J0500; J2405

== ENCOUNTER → 2021-10-04 | Outpatient (REF) | payer OTHER ==
[~2021-10-04] MED LIST changes: +ALBU2.5V10 INH; +ALBU2.5V10 NEB; -ALBU83IN NEB
== END ==
LOC: M LAB REF 09:49
PROVIDERS: ATTEND Physician Assistant Medical
DX: K58.1 Irritable bowel syndrome with constipation (principal); B96.81 Helicobacter pylori [H. pylori] as the cause of diseases classified elsewhere

== ENCOUNTER 2021-11-07 23:15 | Emergency (ER) | payer OTHER ==
[~2021-11-07] VITALS: Ht 160 cm; Wt 65.0 kg
[2021-11-08 01:18] LABS: BASO # 0.1 10^3/uL (0.0-0.2); BASO % 1.1 % (0.0-1.0); EOS # 0.3 10^3/uL (0.0-0.5); EOS % 3.1 % (0.0-3.0); HEMATOCRIT 47.9 % (36.0-47.0); HEMOGLOBIN 16.2 g/dl (12.0-15.5); LYMPH # 3.6 10^3/uL (1.5-5.0); LYMPH % 36.9 % (24.0-44.0); MEAN CORPUSCULAR HEMOGLOBIN 29.9 pg (27.0-33.0); MEAN CORPUSCULAR HGB CONC 33.8 g/dl (32.0-36.5); MEAN CORPUSCULAR VOLUME 88.4 fl (80.0-96.0); MONO # 0.7 10^3/uL (0.0-0.8); MONO % 7.2 % (2.0-8.0); NEUTROPHILS % 51.3 % (36.0-66.0); PLATELET COUNT, AUTOMATED 348 10^3/uL (150-450); RED BLOOD COUNT 5.42 10^6/uL (4.00-5.40); WHITE BLOOD COUNT 9.8 10^3/uL (4.0-10.0)
[2021-11-08 01:30] LABS: ALBUMIN 3.7 GM/DL (3.2-5.2); ALT/SGPT 22 U/L (12-78); BILIRUBIN,DIRECT < 0.1 MG/DL (0.0-0.2); BILIRUBIN,TOTAL 0.2 MG/DL (0.2-1.0); BLOOD UREA NITROGEN 12 MG/DL (7-18); CALCIUM LEVEL 9.4 MG/DL (8.8-10.2); CARBON DIOXIDE LEVEL 30 MEQ/L (21-32); CHLORIDE LEVEL 104 MEQ/L (98-107); CREATININE FOR GFR 0.74 MG/DL (0.55-1.30); GLOMERULAR FILTRATION RATE > 60.0 (>45); GLUCOSE, FASTING 131 MG/DL (70-100); LIPASE 56 U/L (73-393); POTASSIUM SERUM 4.7 MEQ/L (3.5-5.1); SODIUM LEVEL 138 MEQ/L (136-145); TOTAL PROTEIN 7.2 GM/DL (6.4-8.2)
[2021-11-08] MEDS ORDERED: ACETAMINOPHEN TAB 650MG DOSE (2X325MG) PO ONE (02:50)
[2021-11-08 03:40] VITALS: BP 178/68
== END 2021-11-08 03:41 | disposition home or self-care (01) ==
LOC: M ED 23:15
DX: R10.9 Unspecified abdominal pain (principal); M85.861 Other specified disorders of bone density and structure, right lower leg; J45.909 Unspecified asthma, uncomplicated; I10 Essential (primary) hypertension; E11.9 Type 2 diabetes mellitus without complications; I25.2 Old myocardial infarction; E78.5 Hyperlipidemia, unspecified; Z87.19 Personal history of other diseases of the digestive system; Z88.0 Allergy status to penicillin; Z88.1 Allergy status to other antibiotic agents; Z88.2 Allergy status to sulfonamides; Z88.7 Allergy status to serum and vaccine; Z88.8 Allergy status to other drugs, medicaments and biological substances; Z91.012 Allergy to eggs; Z91.018 Allergy to other foods; Z91.040 Latex allergy status; Z79.899 Other long term (current) drug therapy; Z79.4 Long term (current) use of insulin

== ENCOUNTER → 2022-02-07 | Outpatient (REF) | payer OTHER | LOC: M LAB REF 17:06 | PROVIDERS: ATTEND Physician Assistant Medical | DX: Z79.899 Other long term (current) drug therapy (principal); B96.81 Helicobacter pylori [H. pylori] as the cause of diseases classified elsewhere ==

== ENCOUNTER → 2022-05-30 | Outpatient (CLI) | payer OTHER ==
[~2022-05-30] MED LIST changes: +DIPH-435 PO; -DIPH25CA32 PO
== END ==
LOC: M RAD 12:10
PROVIDERS: ATTEND Family Medicine
DX: M25.561 Pain in right knee (principal)

== ENCOUNTER → 2022-05-30 | Outpatient (CLI) | payer OTHER | LOC: M RAD 12:06 | PROVIDERS: ATTEND Family Medicine | DX: M25.551 Pain in right hip (principal) ==

== ENCOUNTER 2022-07-13 13:57 | Inpatient (IN) | payer OTHER ==
[~2022-07-13] VITALS: Ht 160 cm; Wt 66.7 kg
[~2022-07-13 13:57] MED LIST changes: +MONT-5 PO; -SING10TA32 PO
[2022-07-13] MEDS ORDERED: ONDANSETRON 4MG 2ML VIAL IV ONE ×2 (15:45→23:55)
[2022-07-13] MEDS ORDERED: diphenhydrAMINE 50MG/ML VIAL IV STA (15:46)
[2022-07-13] MEDS ORDERED: methylPREDNISolone 125MG 2ML VIAL IV ONE (15:50)
[2022-07-13] MEDS ORDERED: FAMOTIDINE 20MG/2ML VIAL IVP ONE (15:50)
[2022-07-13] MEDS ORDERED: MORPHINE 2 MG/ML 1ML VIAL IV ONE (16:05)
[2022-07-13] MEDS ORDERED: ISOVUE-370 76% 100ML VIAL As Ordered ONE (16:31)
[2022-07-13] MEDS ORDERED: DEXTROSE 50% 50ML SYRINGE IV STA (16:31)
[2022-07-13] MEDS: NS 1,000 ML IV SCH (16:33)
[2022-07-13 16:51] LABS: BASO # 0.1 10^3/uL (0.0-0.2); BASO % 0.8 % (0.0-1.0); EOS # 0.2 10^3/uL (0.0-0.5); EOS % 1.9 % (0.0-3.0); HEMATOCRIT 46.4 % (36.0-47.0); HEMOGLOBIN 15.6 g/dl (12.0-15.5); LYMPH % 29.6 % (24.0-44.0); MEAN CORPUSCULAR HEMOGLOBIN 29.3 pg (27.0-33.0); MEAN CORPUSCULAR HGB CONC 33.6 g/dl (32.0-36.5); MEAN CORPUSCULAR VOLUME 87.1 fl (80.0-96.0); MONO # 0.9 10^3/uL (0.0-0.8); MONO % 8.5 % (2.0-8.0); NEUTROPHILS # 5.9 10^3/uL (1.5-8.5); NEUTROPHILS % 58.7 % (36.0-66.0); PLATELET COUNT, AUTOMATED 390 10^3/uL (150-450); RED BLOOD COUNT 5.33 10^6/uL (4.00-5.40)
[2022-07-13 17:54] LABS: VENOUS BASE EXCESS -2.5 (-2.0-2.0); VENOUS HCO3 24.5 MEQ/L (23.0-27.0); VENOUS O2 SATURATION 72.4 % (60.0-80.0); VENOUS PARTIAL PRESSURE CO2 50.8 mmHg (38.0-50.0); VENOUS PARTIAL PRESSURE O2 37.8 mmHg (30.0-50.0); VENOUS PH 7.302 UNITS (7.330-7.430); VENOUS STANDARD HCO3 21.7 MEQ/L; VENOUS TOTAL CO2 26.1 MEQ/L (24.0-28.0)
[2022-07-13] MEDS ORDERED: MORPHINE 4 MG/ML 1ML VIAL IV ONE (18:10)
[2022-07-13 18:17] LABS: INR 0.96
[2022-07-13 18:18] LABS: PARTIAL THROMBOPLASTIN TIME 28.7 SECONDS (24.8-34.2)
[2022-07-13 18:20] LABS: LIPASE 15 U/L (12-53)
[2022-07-13 18:22] LABS: ALBUMIN 3.3 G/DL (3.2-5.2); ALKALINE PHOSPHATASE 157 U/L (46-116); ALT/SGPT 10 U/L (7.0-40); AST/SGOT 11 U/L (<34); BILIRUBIN,DIRECT 0.1 MG/DL (<0.4); BILIRUBIN,TOTAL 0.4 MG/DL (0.3-1.2); BLOOD UREA NITROGEN 9 MG/DL (9-23); CARBON DIOXIDE LEVEL 28 MMOL/L (20-31); CHLORIDE LEVEL 103 MMOL/L (98-107); CREATININE FOR GFR 0.59 MG/DL (0.55-1.30); GLOMERULAR FILTRATION RATE > 60.0 (>45); GLUCOSE, FASTING 178 MG/DL (74-106); POTASSIUM SERUM 4.1 MMOL/L (3.5-5.1); SODIUM LEVEL 137 MMOL/L (136-145); TOTAL PROTEIN 6.5 G/DL (5.7-8.2)
[2022-07-13 18:35] LABS: AMYLASE < 20 U/L (30-118)
[2022-07-13 19:21] LABS: RSV AMPLIFICATION NEGATIVE (NEGATIVE)
[2022-07-13] MEDS: APIDRA INSULIN SQ SCH (21:00)
[2022-07-13] MEDS ORDERED: LEVEMIR (INSULIN DETEMIR) 1 UNITS/0.01ML SC SCH (21:00)
[2022-07-13] MEDS ORDERED: MORPHINE 4 MG/ML 1ML VIAL IV PRN (23:55)
[2022-07-13] MEDS: HumuLIN R (REGULAR) INSULIN (NovoLIN R) **100U/ML** PER UNIT SC ONE (23:55)
[2022-07-14] MEDS ORDERED: ALBU8.5H INH (00:23)
[2022-07-14] MEDS ORDERED: HOME MED LIST COMPLETE! XX SCH (00:25)
[2022-07-14] MEDS: HumuLIN R (REGULAR) INSULIN (NovoLIN R) **100U/ML** PER UNIT SC ONE (00:41)
[2022-07-14] MEDS ORDERED: GLUCOSE 4GM CHEW TABLET PO PRN (00:55)
[2022-07-14] MEDS ORDERED: ALBUTEROL SULFATE 2.5MG/0.5ML INH NEB SOLN NEB PRN (00:55)
[2022-07-14] MEDS ORDERED: DEXTROSE 50% 50ML SYRINGE IV PRN (00:55)
[2022-07-14] MEDS ORDERED: GLUCAGON INJ 1MG VIAL SC PRN (00:55)
[2022-07-14 01:14] LABS: HEMOGLOBIN A1c 8.3 % (4.0-6.0)
[2022-07-14] MEDS: NS 1,000 ML IV SCH (01:50)
[2022-07-14] MEDS ORDERED: amLODIPine 5 MG TAB PO ONE (02:00)
[2022-07-14 02:30] VITALS: BP 159/98
[2022-07-14 06:00] VITALS: BP 143/83
[2022-07-14] MEDS ORDERED: methylPREDNISolone 1,000 MG, VIAL MATE ADAPTER 1 EACH in NS 250 ML IV SCH (06:00)
[2022-07-14] MEDS ORDERED: ONDANSETRON 4MG 2ML VIAL IV PRN (06:00)
[2022-07-14] MEDS ORDERED: HumuLIN R (REGULAR) INSULIN (NovoLIN R) **100U/ML** PER UNIT IV STA (06:55)
[2022-07-14] MEDS: [UNRECOGNIZED DRUG - OTHER] XX SCH ×4 (07:30→20:44)
[2022-07-14] MEDS: APIDRA INSULIN SQ SCH ×4 (07:30→20:45)
[2022-07-14 07:53] LABS: BASO % 0.1 % (0.0-1.0); HEMATOCRIT 44.1 % (36.0-47.0); HEMOGLOBIN 14.7 g/dl (12.0-15.5); LYMPH # 1.7 10^3/uL (1.5-5.0); LYMPH % 17.2 % (24.0-44.0); MEAN CORPUSCULAR HEMOGLOBIN 28.9 pg (27.0-33.0); MEAN CORPUSCULAR HGB CONC 33.3 g/dl (32.0-36.5); MEAN CORPUSCULAR VOLUME 86.6 fl (80.0-96.0); MONO # 0.4 10^3/uL (0.0-0.8); MONO % 3.9 % (2.0-8.0); NEUTROPHILS # 7.8 10^3/uL (1.5-8.5); NEUTROPHILS % 78.5 % (36.0-66.0); PLATELET COUNT, AUTOMATED 366 10^3/uL (150-450); RED BLOOD COUNT 5.09 10^6/uL (4.00-5.40); WHITE BLOOD COUNT 9.9 10^3/uL (4.0-10.0)
[2022-07-14 08:25] LABS: BLOOD UREA NITROGEN 15 MG/DL (9-23); CALCIUM LEVEL 8.2 MG/DL (8.3-10.6); CARBON DIOXIDE LEVEL 24 MMOL/L (20-31); CHLORIDE LEVEL 101 MMOL/L (98-107); CREATININE FOR GFR 0.68 MG/DL (0.55-1.30); GLOMERULAR FILTRATION RATE > 60.0 (>45); GLUCOSE, FASTING 392 MG/DL (74-106); MAGNESIUM LEVEL 2.1 MG/DL (1.8-2.4); POTASSIUM SERUM 4.9 MMOL/L (3.5-5.1); SODIUM LEVEL 134 MMOL/L (136-145)
[2022-07-14] MEDS ORDERED: FAMOTIDINE 20 MG TAB PO PRN (09:20)
[2022-07-14] MEDS ORDERED: diphenhydrAMINE 50MG/ML VIAL IV PRN (09:20)
[2022-07-14] MEDS: ENOXAPARIN 40MG/0.4ML SYRINGE (J1650 PER 10MG) SC SCH (10:41)
[2022-07-14] MEDS: PANTOPRAZOLE 40MG TAB (PROTONIX) PO SCH (10:42)
[2022-07-14] MEDS: ACETAMINOPHEN TAB 650MG DOSE (2X325MG) PO PRN ×2 (11:08→15:24)
[2022-07-14] MEDS ORDERED: FAMOTIDINE 20MG/2ML VIAL IVP PRN (11:15)
[2022-07-14] MEDS ORDERED: PROHANCE 279.3MG/ML 15ML VIAL As Ordered ONE (15:05)
[2022-07-14] MEDS: LANTUS SQ SCH (20:05)
[2022-07-14] MEDS ORDERED: OMEPRAZOLE 20MG CAP PO SCH (21:00)
[2022-07-14] MEDS ORDERED: APIDRA INSULIN SQ ONE (21:00)
[2022-07-14] MEDS ORDERED: LEVEMIR (INSULIN DETEMIR) 1 UNITS/0.01ML SC SCH (21:00)
[2022-07-14 22:00] VITALS: BP 145/88
[2022-07-15 06:00] VITALS: BP 148/88
[2022-07-15] MEDS: methylPREDNISolone 1,000 MG, VIAL MATE ADAPTER 1 EACH in NS 250 ML IV SCH (06:24)
[2022-07-15] MEDS: APIDRA INSULIN SQ SCH ×5 (06:47→20:50)
[2022-07-15 06:58] LABS: BASO % 0.1 % (0.0-1.0); HEMOGLOBIN 13.8 g/dl (12.0-15.5); LYMPH # 1.6 10^3/uL (1.5-5.0); MEAN CORPUSCULAR HEMOGLOBIN 29.1 pg (27.0-33.0); MEAN CORPUSCULAR HGB CONC 33.7 g/dl (32.0-36.5); MEAN CORPUSCULAR VOLUME 86.5 fl (80.0-96.0); MONO # 0.9 10^3/uL (0.0-0.8); MONO % 5.2 % (2.0-8.0); NEUTROPHILS # 14.6 10^3/uL (1.5-8.5); NEUTROPHILS % 84.9 % (36.0-66.0); PLATELET COUNT, AUTOMATED 366 10^3/uL (150-450); RED BLOOD COUNT 4.74 10^6/uL (4.00-5.40); WHITE BLOOD COUNT 17.2 10^3/uL (4.0-10.0)
[2022-07-15 07:25] LABS: BLOOD UREA NITROGEN 25 MG/DL (9-23); CALCIUM LEVEL 8.3 MG/DL (8.3-10.6); CARBON DIOXIDE LEVEL 26 MMOL/L (20-31); CHLORIDE LEVEL 102 MMOL/L (98-107); CREATININE FOR GFR 0.69 MG/DL (0.55-1.30); GLOMERULAR FILTRATION RATE > 60.0 (>45); GLUCOSE, FASTING 326 MG/DL (74-106); MAGNESIUM LEVEL 2.1 MG/DL (1.8-2.4); POTASSIUM SERUM 4.8 MMOL/L (3.5-5.1); SODIUM LEVEL 135 MMOL/L (136-145)
[2022-07-15] MEDS: [UNRECOGNIZED DRUG - OTHER] XX SCH ×4 (07:30→20:50)
[2022-07-15] MEDS ORDERED: methylPREDNISolone 125MG 2ML VIAL IV SCH (09:00)
[2022-07-15] MEDS: PANTOPRAZOLE 40MG TAB (PROTONIX) PO SCH (09:35)
[2022-07-15] MEDS: ENOXAPARIN 40MG/0.4ML SYRINGE (J1650 PER 10MG) SC SCH (09:36)
[2022-07-15] MEDS: ACETAMINOPHEN TAB 650MG DOSE (2X325MG) PO PRN ×2 (09:37→16:45)
[2022-07-15 14:18] VITALS: BP 148/88
[2022-07-15] MEDS: LANTUS SQ SCH (20:50)
[2022-07-15 21:37] VITALS: BP 162/98
[2022-07-16] MEDS ORDERED: MORPHINE 2 MG/ML 1ML VIAL IV ONE (05:00)
[2022-07-16] MEDS: methylPREDNISolone 1,000 MG, VIAL MATE ADAPTER 1 EACH in NS 250 ML IV SCH (05:02)
[2022-07-16 06:00] VITALS: BP 184/82
[2022-07-16] MEDS ORDERED: MEDR4TAB PO (07:15)
[2022-07-16] MEDS ORDERED: ACETAMINOPH W/CODEINE #3 TAB UD PO PRN (08:05)
[2022-07-16 08:13] LABS: BASO % 0.1 % (0.0-1.0); EOS % 0.1 % (0.0-3.0); HEMATOCRIT 44.4 % (36.0-47.0); HEMOGLOBIN 15.1 g/dl (12.0-15.5); LYMPH # 0.9 10^3/uL (1.5-5.0); MEAN CORPUSCULAR HEMOGLOBIN 28.9 pg (27.0-33.0); MEAN CORPUSCULAR VOLUME 85.1 fl (80.0-96.0); MONO # 0.4 10^3/uL (0.0-0.8); MONO % 2.6 % (2.0-8.0); NEUTROPHILS # 13.3 10^3/uL (1.5-8.5); NEUTROPHILS % 90.3 % (36.0-66.0); PLATELET COUNT, AUTOMATED 355 10^3/uL (150-450); RED BLOOD COUNT 5.22 10^6/uL (4.00-5.40); WHITE BLOOD COUNT 14.8 10^3/uL (4.0-10.0)
[2022-07-16] MEDS: ENOXAPARIN 40MG/0.4ML SYRINGE (J1650 PER 10MG) SC SCH (08:14)
[2022-07-16] MEDS: [UNRECOGNIZED DRUG - OTHER] XX SCH ×2 (08:14→12:25)
[2022-07-16] MEDS: PANTOPRAZOLE 40MG TAB (PROTONIX) PO SCH (08:14)
[2022-07-16] MEDS: APIDRA INSULIN SQ SCH ×2 (08:14→12:25)
[2022-07-16 08:36] LABS: BLOOD UREA NITROGEN 19 MG/DL (9-23); CALCIUM LEVEL 8.3 MG/DL (8.3-10.6); CARBON DIOXIDE LEVEL 27 MMOL/L (20-31); CHLORIDE LEVEL 101 MMOL/L (98-107); CREATININE FOR GFR 0.51 MG/DL (0.55-1.30); GLOMERULAR FILTRATION RATE > 60.0 (>45); GLUCOSE, FASTING 338 MG/DL (74-106); POTASSIUM SERUM 4.1 MMOL/L (3.5-5.1); SODIUM LEVEL 136 MMOL/L (136-145)
[2022-07-16] MEDS ORDERED: TRULANCE 3 MG PO SCH (09:00)
[2022-07-16] MEDS ORDERED: amLODIPine 5 MG TAB PO ONE ×3 (09:30→13:05)
[2022-07-16] MEDS ORDERED: ACET-716 PO (11:51)
[2022-07-16 12:38] VITALS: BP 158/84
[2022-07-16 13:10] VITALS: BP 158/84
[2022-07-16 14:19] VITALS: BP 144/72
[2022-07-16] MEDS ORDERED: AMLO1TAB24 PO (14:35)
== END 2022-07-16 15:45 | disposition home health service (06) | DRG 60 ==
LOC: M ED 13:57 → M ED INP 07-14 00:52 → ENRESERV 07-14 01:45 → M MS5PR 07-14 02:19
PROVIDERS: ADMIT Internal Medicine; ATTEND Internal Medicine
DX: G37.9 Demyelinating disease of central nervous system, unspecified (principal); G43.909 Migraine, unspecified, not intractable, without status migrainosus; E11.65 Type 2 diabetes mellitus with hyperglycemia; J44.9 Chronic obstructive pulmonary disease, unspecified; I10 Essential (primary) hypertension; E78.5 Hyperlipidemia, unspecified; K21.9 Gastro-esophageal reflux disease without esophagitis; F41.9 Anxiety disorder, unspecified; R10.9 Unspecified abdominal pain; Z90.49 Acquired absence of other specified parts of digestive tract; Z90.79 Acquired absence of other genital organ(s); Z87.891 Personal history of nicotine dependence; Z79.4 Long term (current) use of insulin; Z79.899 Other long term (current) drug therapy; Z88.0 Allergy status to penicillin; Z88.1 Allergy status to other antibiotic agents; Z88.2 Allergy status to sulfonamides; Z88.6 Allergy status to analgesic agent; Z88.7 Allergy status to serum and vaccine; Z88.8 Allergy status to other drugs, medicaments and biological substances; Z91.041 Radiographic dye allergy status; Z91.040 Latex allergy status; Z91.013 Allergy to seafood; Z91.012 Allergy to eggs; Z20.822 Contact with and (suspected) exposure to COVID-19; M25.571 Pain in right ankle and joints of right foot; I25.2 Old myocardial infarction; R20.0 Anesthesia of skin; S93.401A Sprain of unspecified ligament of right ankle, initial encounter; X58.XXXA Exposure to other specified factors, initial encounter; Y92.9 Unspecified place or not applicable

== ENCOUNTER 2022-08-30 16:21 | Inpatient (IN) | payer OTHER ==
[~2022-08-30] VITALS: Ht 160 cm; Wt 64.5 kg
[~2022-08-30 16:21] MED LIST changes: +ALBU8.5H INH; +AMLO1TAB24 PO; +MEDR4TAB PO
[2022-08-30] MEDS ORDERED: MORPHINE 4 MG/ML 1ML VIAL IV ONE (18:30)
[2022-08-30 19:18] LABS: BASO # 0.1 10^3/uL (0.0-0.2); BASO % 0.9 % (0.0-1.0); EOS # 0.7 10^3/uL (0.0-0.5); EOS % 5.9 % (0.0-3.0); HEMATOCRIT 43.2 % (36.0-47.0); HEMOGLOBIN 14.2 g/dl (12.0-15.5); LYMPH # 3.2 10^3/uL (1.5-5.0); LYMPH % 28.8 % (24.0-44.0); MEAN CORPUSCULAR HEMOGLOBIN 29.2 pg (27.0-33.0); MEAN CORPUSCULAR HGB CONC 32.9 g/dl (32.0-36.5); MEAN CORPUSCULAR VOLUME 88.9 fl (80.0-96.0); MONO # 0.8 10^3/uL (0.0-0.8); MONO % 6.8 % (2.0-8.0); NEUTROPHILS # 6.3 10^3/uL (1.5-8.5); NEUTROPHILS % 57.3 % (36.0-66.0); PLATELET COUNT, AUTOMATED 362 10^3/uL (150-450); RED BLOOD COUNT 4.86 10^6/uL (4.00-5.40)
[2022-08-30 19:47] LABS: BLOOD UREA NITROGEN 15 MG/DL (9-23); CALCIUM LEVEL 8.6 MG/DL (8.3-10.6); CARBON DIOXIDE LEVEL 26 MMOL/L (20-31); CHLORIDE LEVEL 105 MMOL/L (98-107); CREATININE FOR GFR 0.51 MG/DL (0.55-1.30); GLOMERULAR FILTRATION RATE > 60.0 (>45); GLUCOSE, FASTING 226 MG/DL (74-106); POTASSIUM SERUM 4.2 MMOL/L (3.5-5.1); SODIUM LEVEL 141 MMOL/L (136-145)
[2022-08-30] MEDS ORDERED: methylPREDNISolone 1,000 MG, VIAL MATE ADAPTER 1 EACH in NS 250 ML IV ONE (21:50)
[2022-08-30] MEDS ORDERED: LABETALOL 100MG/20ML VIAL IV STA (23:08)
[2022-08-30] MEDS ORDERED: ACETAMINOPHEN TAB 650MG DOSE (2X325MG) PO PRN (23:10)
[2022-08-30] MEDS ORDERED: PLEC3TAB PO (23:34)
[2022-08-30] MEDS ORDERED: APIDINJ2 SC (23:34)
[2022-08-30] MEDS ORDERED: ALBU2.5V10 INH (23:34)
[2022-08-30] MEDS ORDERED: AMLO1TAB25 PO (23:34)
[2022-08-30] MEDS ORDERED: HOME MED LIST COMPLETE! XX SCH (23:35)
[2022-08-31] VITALS (8 sets, daily range): BP systolic 133–149; BP diastolic 63–78
[2022-08-31] MEDS ORDERED: ALBUTEROL SULFATE 2.5MG/0.5ML INH NEB SOLN INH PRN (00:10)
[2022-08-31] MEDS ORDERED: ALBUTEROL 90 MCG/ACT 8GM HFA INHALER INH PRN (00:10)
[2022-08-31 01:16] LABS: RSV AMPLIFICATION NEGATIVE (NEGATIVE)
[2022-08-31] MEDS: cefTRIAXone SOD 1 GM in D5W MINI-BAG PLUS 50 ML IV SCH (03:37)
[2022-08-31] MEDS: ACETAMINOPH W/CODEINE #3 TAB UD PO PRN ×2 (03:47→18:33)
[2022-08-31 05:25] LABS: HEMATOCRIT 42.1 % (36.0-47.0); HEMOGLOBIN 13.8 g/dl (12.0-15.5); MEAN CORPUSCULAR HEMOGLOBIN 29.4 pg (27.0-33.0); MEAN CORPUSCULAR HGB CONC 32.8 g/dl (32.0-36.5); MEAN CORPUSCULAR VOLUME 89.8 fl (80.0-96.0); PLATELET COUNT, AUTOMATED 336 10^3/uL (150-450); RED BLOOD COUNT 4.69 10^6/uL (4.00-5.40); WHITE BLOOD COUNT 5.9 10^3/uL (4.0-10.0)
[2022-08-31 05:53] LABS: ALBUMIN 3.3 G/DL (3.2-5.2); ALKALINE PHOSPHATASE 179 U/L (46-116); ALT/SGPT 39 U/L (7.0-40); AST/SGOT 51 U/L (<34); BILIRUBIN,TOTAL 0.4 MG/DL (0.3-1.2); BLOOD UREA NITROGEN 15 MG/DL (9-23); CALCIUM LEVEL 8.3 MG/DL (8.3-10.6); CARBON DIOXIDE LEVEL 21 MMOL/L (20-31); CHLORIDE LEVEL 107 MMOL/L (98-107); CREATININE FOR GFR 0.47 MG/DL (0.55-1.30); GLOMERULAR FILTRATION RATE > 60.0 (>45); GLUCOSE, FASTING 365 MG/DL (74-106); MAGNESIUM LEVEL 1.8 MG/DL (1.8-2.4); POTASSIUM SERUM 4.3 MMOL/L (3.5-5.1); SODIUM LEVEL 139 MMOL/L (136-145); TOTAL PROTEIN 6.4 G/DL (5.7-8.2)
[2022-08-31] MEDS ORDERED: methylPREDNISolone 1,000 MG, VIAL MATE ADAPTER 1 EACH in NS 250 ML IV SCH (09:00)
[2022-08-31 14:13] LABS: APPEARANCE, CSF CLEAR (CLEAR); COLOR, CSF COLORLESS (COLORLESS); CSF TUBE# CELL CNT TUBE 1
[2022-08-31 14:32] LABS: CSF TUBE# GLU TUBE 2
[2022-08-31] MEDS: methylPREDNISolone 1,000 MG, VIAL MATE ADAPTER 1 EACH in NS 250 ML IV SCH (14:47)
[2022-08-31] MEDS ORDERED: DEXTROSE 50% 50ML SYRINGE IV PRN (15:10)
[2022-08-31] MEDS ORDERED: GLUCOSE 4GM CHEW TABLET PO PRN (15:10)
[2022-08-31] MEDS ORDERED: GLUCAGON INJ 1MG VIAL SC PRN (15:10)
[2022-08-31] MEDS: HEPARIN SOD (PORCINE) 5000UNITS/ML 1ML VIAL/SYRINGE SQ SCH ×2 (16:00→20:09)
[2022-08-31] MEDS: APIDRA 100 UNIT/ML SQ SCH (17:04)
[2022-08-31 19:21] LABS: CSF TUBE# TP TUBE 4; TOTAL PROTEIN,CSF 36.3 MG/DL (15-45)
[2022-08-31] MEDS ORDERED: [UNRECOGNIZED DRUG - OTHER] SQ SCH (21:00)
[2022-08-31] MEDS ORDERED: APIDRA 100 UNIT/ML SQ SCH (21:00)
[2022-08-31] MEDS ORDERED: LEVEMIR (INSULIN DETEMIR) 1 UNITS/0.01ML SC SCH (21:00)
[2022-08-31] MEDS ORDERED: HumuLIN R (REGULAR) INSULIN (NovoLIN R) **100U/ML** PER UNIT IV STA (21:43)
[2022-09-01] MEDS ORDERED: APIDRA SQ ONE ×3 (02:50→19:15)
[2022-09-01 03:25] VITALS: BP 125/63
[2022-09-01] MEDS: cefTRIAXone SOD 1 GM in D5W MINI-BAG PLUS 50 ML IV SCH (04:29)
[2022-09-01] MEDS: HEPARIN SOD (PORCINE) 5000UNITS/ML 1ML VIAL/SYRINGE SQ SCH ×3 (05:13→22:25)
[2022-09-01 06:37] LABS: HEMATOCRIT 35.7 % (36.0-47.0); HEMOGLOBIN 12.2 g/dl (12.0-15.5); MEAN CORPUSCULAR HEMOGLOBIN 29.8 pg (27.0-33.0); MEAN CORPUSCULAR HGB CONC 34.2 g/dl (32.0-36.5); MEAN CORPUSCULAR VOLUME 87.1 fl (80.0-96.0); PLATELET COUNT, AUTOMATED 307 10^3/uL (150-450); WHITE BLOOD COUNT 8.3 10^3/uL (4.0-10.0)
[2022-09-01 07:24] LABS: ACETONE/KETONE 0.32 MMOL/L (0.02-0.27)
[2022-09-01 07:30] LABS: ALBUMIN 3.3 G/DL (3.2-5.2); ALKALINE PHOSPHATASE 156 U/L (46-116); ALT/SGPT 29 U/L (7.0-40); AST/SGOT 16 U/L (<34); BILIRUBIN,TOTAL 0.4 MG/DL (0.3-1.2); BLOOD UREA NITROGEN 31 MG/DL (9-23); CALCIUM LEVEL 8.8 MG/DL (8.3-10.6); CARBON DIOXIDE LEVEL 21 MMOL/L (20-31); CHLORIDE LEVEL 108 MMOL/L (98-107); CREATININE FOR GFR 0.59 MG/DL (0.55-1.30); GLOMERULAR FILTRATION RATE > 60.0 (>45); GLUCOSE, FASTING 381 MG/DL (74-106); POTASSIUM SERUM 4.4 MMOL/L (3.5-5.1); SODIUM LEVEL 139 MMOL/L (136-145); TOTAL PROTEIN 5.9 G/DL (5.7-8.2)
[2022-09-01] MEDS ORDERED: ENTER DRUG NAME HERE (PATIENT'S OWN MED) SQ SCH (07:30)
[2022-09-01 07:37] VITALS: BP 132/74
[2022-09-01] MEDS: OMEPRAZOLE 20MG CAP PO SCH (09:00)
[2022-09-01] MEDS: INSULIN LISPRO (NovoLOG) PER UNIT SC SCH ×2 (09:00→12:00)
[2022-09-01] MEDS: APIDRA 100 UNIT/ML SQ SCH ×3 (10:16→21:06)
[2022-09-01] MEDS ORDERED: ENTER DRUG NAME HERE (PATIENT'S OWN MED) SQ ONE (10:30)
[2022-09-01 10:49] LABS: VENOUS BASE EXCESS -3.5 (-2.0-2.0); VENOUS HCO3 20.9 MMOL/L (23.0-27.0); VENOUS O2 SATURATION 96.9 % (60.0-80.0); VENOUS PH 7.382 UNITS (7.330-7.430); VENOUS STANDARD HCO3 21.6 MMOL/L
[2022-09-01 12:00] VITALS: BP 142/80
[2022-09-01 13:29] LABS: BLOOD UREA NITROGEN 35 MG/DL (9-23); CALCIUM LEVEL 9.1 MG/DL (8.3-10.6); CARBON DIOXIDE LEVEL 23 MMOL/L (20-31); CHLORIDE LEVEL 104 MMOL/L (98-107); CREATININE FOR GFR 0.81 MG/DL (0.55-1.30); GLOMERULAR FILTRATION RATE > 60.0 (>45); GLUCOSE, FASTING 347 MG/DL (74-106); POTASSIUM SERUM 3.9 MMOL/L (3.5-5.1); SODIUM LEVEL 138 MMOL/L (136-145)
[2022-09-01] MEDS: methylPREDNISolone 1,000 MG, VIAL MATE ADAPTER 1 EACH in NS 250 ML IV SCH (13:55)
[2022-09-01 16:04] VITALS: BP 142/65
[2022-09-01] MEDS ORDERED: APIDRA 100 UNIT/ML SQ SCH (17:30)
[2022-09-01] MEDS ORDERED: INSULIN LISPRO (NovoLOG) PER UNIT SC SCH (17:30)
[2022-09-01] MEDS ORDERED: LANTUS SQ SCH (19:00)
[2022-09-01 19:52] VITALS: BP 145/65
[2022-09-01] MEDS: ACETAMINOPH W/CODEINE #3 TAB UD PO PRN (22:26)
[2022-09-01 23:36] VITALS: BP 153/67
[2022-09-02 03:15] VITALS: BP 127/85
[2022-09-02] MEDS: cefTRIAXone SOD 1 GM in D5W MINI-BAG PLUS 50 ML IV SCH (03:21)
[2022-09-02] MEDS: HEPARIN SOD (PORCINE) 5000UNITS/ML 1ML VIAL/SYRINGE SQ SCH ×3 (05:04→21:19)
[2022-09-02 06:00] VITALS: BP 125/65
[2022-09-02] MEDS: APIDRA 100 UNIT/ML SQ SCH ×4 (07:16→21:17)
[2022-09-02 07:35] LABS: HEMATOCRIT 36.3 % (36.0-47.0); HEMOGLOBIN 12.4 g/dl (12.0-15.5); MEAN CORPUSCULAR HEMOGLOBIN 29.7 pg (27.0-33.0); MEAN CORPUSCULAR HGB CONC 34.2 g/dl (32.0-36.5); MEAN CORPUSCULAR VOLUME 87.1 fl (80.0-96.0); PLATELET COUNT, AUTOMATED 293 10^3/uL (150-450); RED BLOOD COUNT 4.17 10^6/uL (4.00-5.40); WHITE BLOOD COUNT 10.4 10^3/uL (4.0-10.0)
[2022-09-02 07:56] LABS: BLOOD UREA NITROGEN 28 MG/DL (9-23); CALCIUM LEVEL 8.5 MG/DL (8.3-10.6); CARBON DIOXIDE LEVEL 25 MMOL/L (20-31); CHLORIDE LEVEL 107 MMOL/L (98-107); CREATININE FOR GFR 0.53 MG/DL (0.55-1.30); GLOMERULAR FILTRATION RATE > 60.0 (>45); GLUCOSE, FASTING 332 MG/DL (74-106); POTASSIUM SERUM 4.3 MMOL/L (3.5-5.1); SODIUM LEVEL 139 MMOL/L (136-145)
[2022-09-02] MEDS: methylPREDNISolone 1,000 MG, VIAL MATE ADAPTER 1 EACH in NS 250 ML IV SCH (08:11)
[2022-09-02] MEDS: OMEPRAZOLE 20MG CAP PO SCH (08:11)
[2022-09-02 14:00] VITALS: BP 123/64
[2022-09-02 20:51] VITALS: BP 133/85
[2022-09-02] MEDS: ACETAMINOPH W/CODEINE #3 TAB UD PO PRN (21:34)
[2022-09-03 04:40] VITALS: BP 137/69
[2022-09-03] MEDS: HEPARIN SOD (PORCINE) 5000UNITS/ML 1ML VIAL/SYRINGE SQ SCH (05:24)
[2022-09-03] MEDS: APIDRA 100 UNIT/ML SQ SCH ×2 (07:54→12:22)
[2022-09-03] MEDS: OMEPRAZOLE 20MG CAP PO SCH ×2 (09:00→09:49)
[2022-09-03] MEDS ORDERED: CEFDINIR 300 MG CAP (OMNICEF) PO SCH (09:00)
[2022-09-03] MEDS: ACETAMINOPH W/CODEINE #3 TAB UD PO PRN (11:00)
[2022-09-03] MEDS: methylPREDNISolone 1,000 MG, VIAL MATE ADAPTER 1 EACH in NS 250 ML IV SCH (11:00)
[2022-09-03] MEDS ORDERED: PRED20TA PO ×2 (11:15→11:57)
[2022-09-03] MEDS ORDERED: CEFD300CAP PO (11:15)
[2022-09-03] MEDS ORDERED: PERC5TAB12 PO (13:22)
== END 2022-09-03 14:05 | disposition home or self-care (01) | DRG 59 ==
LOC: M ED 16:21 → M ED INP 23:08 → ENRESERV 08-31 09:56 → M PCU 08-31 10:49 → M MSPAV 09-02 03:12
PROVIDERS: ADMIT Internal Medicine; ATTEND Internal Medicine
PROC: 009U3ZX Drainage of Spinal Canal, Percutaneous Approach, Diagnostic (ICD-10-PCS; principal; 2022-08-31 12:18)
DX: G35 Multiple sclerosis (principal); N39.0 Urinary tract infection, site not specified; G43.909 Migraine, unspecified, not intractable, without status migrainosus; E11.65 Type 2 diabetes mellitus with hyperglycemia; J44.9 Chronic obstructive pulmonary disease, unspecified; I10 Essential (primary) hypertension; F41.9 Anxiety disorder, unspecified; K21.9 Gastro-esophageal reflux disease without esophagitis; M54.9 Dorsalgia, unspecified; G89.29 Other chronic pain; E78.5 Hyperlipidemia, unspecified; Z79.4 Long term (current) use of insulin; Z79.899 Other long term (current) drug therapy; Z88.0 Allergy status to penicillin; Z88.1 Allergy status to other antibiotic agents; Z88.2 Allergy status to sulfonamides; Z88.6 Allergy status to analgesic agent; Z88.8 Allergy status to other drugs, medicaments and biological substances; Z91.040 Latex allergy status; Z91.041 Radiographic dye allergy status; Z91.012 Allergy to eggs; Z88.7 Allergy status to serum and vaccine; Z90.49 Acquired absence of other specified parts of digestive tract; Z90.79 Acquired absence of other genital organ(s); Z87.891 Personal history of nicotine dependence; Z91.013 Allergy to seafood; Z20.822 Contact with and (suspected) exposure to COVID-19; I25.2 Old myocardial infarction

== ENCOUNTER 2023-01-24 15:21 | Emergency (ER) | payer OTHER ==
[~2023-01-24] VITALS: Ht 160 cm; Wt 68.0 kg
[2023-01-24 15:22] VITALS: BP 184/88; TEMP 97.2; O2SAT 98
== END 2023-01-24 19:34 | disposition left against medical advice (07) ==
LOC: M ED 15:21
DX: Z53.21 Procedure and treatment not carried out due to patient leaving prior to being seen by health care provider (principal)

== ENCOUNTER → 2023-01-24 | Outpatient (CLI) | payer OTHER ==
[~2023-01-24] MED LIST changes: +AMLO1TAB25 PO; +APIDINJ2 SC; +CEFD300CAP PO; +LEVO1TAB38 PO; -MIRT-62 PO; +MIRT-88 PO; +PERC5TAB12 PO
[2023-01-24 16:49] LABS: HEPATITIS B SURFACE ANTIBODY NEGATIVE (POSITIVE)
[2023-01-24 17:21] LABS: HEPATITIS C VIRUS ABY INDEX 0.05 INDEX (<0.8)
== END ==
LOC: M LAB 14:38
PROVIDERS: ATTEND Psychiatry & Neurology Neurology
DX: G35 Multiple sclerosis (principal)

== ENCOUNTER 2023-02-06 07:45 | Outpatient (CLI) | payer OTHER ==
[~2023-02-06] VITALS: Ht 152.4 cm; Wt 68.0 kg
[2023-02-06] VITALS (7 sets, daily range): BP systolic 148–171; BP diastolic 72–79; TEMP 97.8–98.6; O2SAT 95–99
[2023-02-06] MEDS ORDERED: methylPREDNISolone 125MG 2ML VIAL IV ONE (08:00)
[2023-02-06] MEDS ORDERED: OCRELIZUMAB 300 MG in NS 250 ML IV ONE (08:00)
[2023-02-06] MEDS ORDERED: ACETAMINOPHEN TAB 650MG DOSE (2X325MG) PO ONE (08:00)
[2023-02-06] MEDS ORDERED: diphenhydrAMINE 25MG CAP PO ONE (08:00)
[2023-02-06] MEDS ORDERED: BENA25CA4 PO (09:12)
== END 2023-02-06 12:50 ==
LOC: M INFU 07:45
PROVIDERS: ATTEND Psychiatry & Neurology Neurology
DX: G35 Multiple sclerosis (principal); Z88.0 Allergy status to penicillin; Z88.2 Allergy status to sulfonamides; Z88.8 Allergy status to other drugs, medicaments and biological substances; Z88.1 Allergy status to other antibiotic agents; Z91.041 Radiographic dye allergy status
CPT/HCPCS: 96365; 96366; J2350; J2930

== ENCOUNTER 2023-02-21 07:48 | Outpatient (CLI) | payer OTHER ==
[~2023-02-21] VITALS: Ht 160 cm; Wt 67.3 kg
[2023-02-21] MEDS ORDERED: OCRELIZUMAB 300 MG in NS 250 ML IV ONE (08:00)
[2023-02-21] MEDS ORDERED: methylPREDNISolone 125MG 2ML VIAL IV ONE (08:00)
[2023-02-21] MEDS ORDERED: ACETAMINOPHEN TAB 650MG DOSE (2X325MG) PO ONE (08:00)
[2023-02-21] MEDS ORDERED: diphenhydrAMINE 25MG CAP PO ONE (08:00)
[2023-02-21 08:11] VITALS: BP 146/93; TEMP 98; O2SAT 97
[2023-02-21 10:00] VITALS: BP 157/89; TEMP 97.6; O2SAT 98
[2023-02-21 11:00] VITALS: BP 151/84; TEMP 97.3; O2SAT 96
[2023-02-21 12:01] VITALS: BP 157/94; TEMP 97.6; O2SAT 97
== END 2023-02-21 11:55 | disposition home or self-care (01) ==
LOC: M INFU 07:48
PROVIDERS: ATTEND Psychiatry & Neurology Neurology
DX: G35 Multiple sclerosis (principal); Z88.0 Allergy status to penicillin; Z88.2 Allergy status to sulfonamides; Z88.1 Allergy status to other antibiotic agents; Z88.8 Allergy status to other drugs, medicaments and biological substances; Z88.5 Allergy status to narcotic agent; Z88.7 Allergy status to serum and vaccine
CPT/HCPCS: 96365; 96366; 96375; J2350; J2930

== ENCOUNTER 2023-08-22 08:25 | Outpatient (CLI) | payer OTHER ==
[~2023-08-22] VITALS: Ht 160 cm; Wt 66.8 kg
[2023-08-22 08:30] VITALS: BP 170/88; O2SAT 98
[2023-08-22] MEDS: methylPREDNISolone 125MG 2ML VIAL IV ONE (08:56)
[2023-08-22] MEDS: diphenhydrAMINE 25MG CAP PO ONE (08:57)
[2023-08-22] MEDS: ACETAMINOPHEN TAB 650MG DOSE (2X325MG) PO ONE (08:57)
[2023-08-22] MEDS: OCRELIZUMAB 600 MG in NS 500 ML IV ONE (09:14)
[2023-08-22 09:45] VITALS: BP 180/93; O2SAT 97
[2023-08-22 10:15] VITALS: BP 160/90; O2SAT 97
[2023-08-22 11:15] VITALS: BP 150/80; O2SAT 96
[2023-08-22 12:45] VITALS: BP 166/84; O2SAT 96
[2023-08-22 14:20] VITALS: BP 177/85; O2SAT 95
== END 2023-08-22 14:20 | disposition home or self-care (01) ==
LOC: M INFU 08:25
PROVIDERS: ATTEND Psychiatry & Neurology Neurology
DX: G35 Multiple sclerosis (principal); Z88.0 Allergy status to penicillin; Z88.2 Allergy status to sulfonamides; Z88.1 Allergy status to other antibiotic agents; Z88.8 Allergy status to other drugs, medicaments and biological substances; Z88.5 Allergy status to narcotic agent; Z88.7 Allergy status to serum and vaccine; Z91.041 Radiographic dye allergy status; Z91.040 Latex allergy status
CPT/HCPCS: 96365; 96366; J2350; J2919

== ENCOUNTER 2023-10-29 15:53 | Emergency (ER) | payer OTHER ==
[~2023-10-29] VITALS: Ht 160 cm; Wt 68.2 kg
[~2023-10-29 15:53] MED LIST changes: +ONDA-282 PO; -ONDA4TAB6 PO
[2023-10-29] MEDS ORDERED: MELO5CAP2 PO (16:04)
[2023-10-29 18:24] LABS: BASO # 0.1 10^3/uL (0.0-0.2); BASO % 0.8 % (0.0-1.0); EOS # 0.3 10^3/uL (0.0-0.5); EOS % 2.9 % (0.0-3.0); HEMATOCRIT 45.5 % (36.0-47.0); HEMOGLOBIN 15.2 g/dl (12.0-15.5); LYMPH # 2.1 10^3/uL (1.5-5.0); LYMPH % 18.1 % (24.0-44.0); MEAN CORPUSCULAR HEMOGLOBIN 30.3 pg (27.0-33.0); MEAN CORPUSCULAR HGB CONC 33.4 g/dl (32.0-36.5); MEAN CORPUSCULAR VOLUME 90.6 fl (80.0-96.0); MONO # 0.8 10^3/uL (0.0-0.8); MONO % 7.3 % (2.0-8.0); NEUTROPHILS # 8.1 10^3/uL (1.5-8.5); NEUTROPHILS % 70.5 % (36.0-66.0); PLATELET COUNT, AUTOMATED 326 10^3/uL (150-450); RED BLOOD COUNT 5.02 10^6/uL (4.00-5.40); WHITE BLOOD COUNT 11.5 10^3/uL (4.0-10.0)
[2023-10-29 18:30] LABS: INR 0.98; PARTIAL THROMBOPLASTIN TIME 26.4 SECONDS (24.8-34.2); PROTHROMBIN TIME 12.7 SECONDS (12.5-14.5)
[2023-10-29] MEDS: ONDANSETRON 4MG 2ML VIAL IV ONE (18:38)
[2023-10-29] MEDS: MORPHINE 4 MG/ML 1ML VIAL IV ONE (18:39)
[2023-10-29 18:41] LABS: BLOOD UREA NITROGEN 12 MG/DL (9-23); CALCIUM LEVEL 8.6 MG/DL (8.3-10.6); CARBON DIOXIDE LEVEL 30 MMOL/L (20-31); CHLORIDE LEVEL 107 MMOL/L (98-107); GLOMERULAR FILTRATION RATE > 60.0 (>45); GLUCOSE, FASTING 102 MG/DL (74-106); POTASSIUM SERUM 4.9 MMOL/L (3.5-5.1); SODIUM LEVEL 140 MMOL/L (136-145)
[2023-10-29] MEDS ORDERED: FIOR1CAP PO (20:09)
[2023-10-29 20:18] VITALS: BP 180/93; TEMP 96.8; O2SAT 98
== END 2023-10-29 20:24 | disposition home or self-care (01) ==
LOC: M ED 15:53
DX: G43.909 Migraine, unspecified, not intractable, without status migrainosus (principal); R31.9 Hematuria, unspecified; E11.9 Type 2 diabetes mellitus without complications; I25.2 Old myocardial infarction; I10 Essential (primary) hypertension; J44.9 Chronic obstructive pulmonary disease, unspecified; K58.9 Irritable bowel syndrome, unspecified; G35 Multiple sclerosis; Z79.4 Long term (current) use of insulin; Z79.899 Other long term (current) drug therapy; Z88.1 Allergy status to other antibiotic agents; Z88.0 Allergy status to penicillin; Z88.2 Allergy status to sulfonamides; Z88.8 Allergy status to other drugs, medicaments and biological substances; Z88.7 Allergy status to serum and vaccine; Z88.5 Allergy status to narcotic agent; Z91.041 Radiographic dye allergy status; Z91.012 Allergy to eggs; Z91.040 Latex allergy status
CPT/HCPCS: 70450; 80048; 81001; 83880; 85025; 85610; 85730; 93005; 96374; 96375; 99284; J2405

== ENCOUNTER 2023-12-01 15:17 | Emergency (ER) | payer OTHER ==
[~2023-12-01] VITALS: Ht 160 cm; Wt 65.6 kg
[~2023-12-01 15:17] MED LIST changes: -ACIP1TAB PO; +MELO5CAP2 PO; +RABE20TA88 PO
[2023-12-01] MEDS: ACETAMINOPH W/CODEINE #3 TAB UD PO ONE (17:40)
[2023-12-01 18:02] LABS: BASO # 0.1 10^3/uL (0.0-0.2); BASO % 0.6 % (0.0-1.0); EOS # 0.2 10^3/uL (0.0-0.5); HEMATOCRIT 47.3 % (36.0-47.0); HEMOGLOBIN 15.4 g/dl (12.0-15.5); LYMPH # 2.7 10^3/uL (1.5-5.0); LYMPH % 23.8 % (24.0-44.0); MEAN CORPUSCULAR HEMOGLOBIN 29.6 pg (27.0-33.0); MEAN CORPUSCULAR HGB CONC 32.6 g/dl (32.0-36.5); MONO # 0.8 10^3/uL (0.0-0.8); MONO % 6.9 % (2.0-8.0); NEUTROPHILS # 7.4 10^3/uL (1.5-8.5); NEUTROPHILS % 66.3 % (36.0-66.0); PLATELET COUNT, AUTOMATED 277 10^3/uL (150-450); WHITE BLOOD COUNT 11.1 10^3/uL (4.0-10.0)
[2023-12-01 18:18] LABS: ALBUMIN 3.4 G/DL (3.2-5.2); ALKALINE PHOSPHATASE 139 U/L (46-116); ALT/SGPT 9 U/L (7.0-40); AST/SGOT 9 U/L (<34); BILIRUBIN,TOTAL 0.2 MG/DL (0.3-1.2); BLOOD UREA NITROGEN 6 MG/DL (9-23); CALCIUM LEVEL 8.5 MG/DL (8.3-10.6); CARBON DIOXIDE LEVEL 24 MMOL/L (20-31); CHLORIDE LEVEL 108 MMOL/L (98-107); CREATININE FOR GFR 0.58 MG/DL (0.55-1.30); GLOMERULAR FILTRATION RATE > 60.0 (>45); GLUCOSE, FASTING 261 MG/DL (74-106); POTASSIUM SERUM 4.6 MMOL/L (3.5-5.1); SODIUM LEVEL 138 MMOL/L (136-145); TOTAL PROTEIN 6.3 G/DL (5.7-8.2)
[2023-12-01 19:06] VITALS: BP 158/94; TEMP 98; O2SAT 96
[2023-12-01] MEDS: ACETAMINOPHEN TAB 650MG DOSE (2X325MG) PO ONE (19:22)
== END 2023-12-01 19:28 | disposition home or self-care (01) ==
LOC: M ED 15:17
DX: G89.29 Other chronic pain (principal); M25.50 Pain in unspecified joint; G35 Multiple sclerosis; E10.9 Type 1 diabetes mellitus without complications; J30.2 Other seasonal allergic rhinitis; Z79.4 Long term (current) use of insulin; Z79.899 Other long term (current) drug therapy; Z91.041 Radiographic dye allergy status; Z88.0 Allergy status to penicillin; Z88.2 Allergy status to sulfonamides; Z88.8 Allergy status to other drugs, medicaments and biological substances; Z88.1 Allergy status to other antibiotic agents; Z91.012 Allergy to eggs; Z91.013 Allergy to seafood; Z88.5 Allergy status to narcotic agent; Z91.040 Latex allergy status; Z88.7 Allergy status to serum and vaccine

== ENCOUNTER 2024-02-03 15:50 | Emergency (ER) | payer OTHER ==
[~2024-02-03] VITALS: Ht 160 cm; Wt 65.8 kg
[~2024-02-03 15:50] MED LIST changes: -SIME180C25 PO; +SIME1CAP4 PO
[2024-02-03 16:00] VITALS: BP 186/86; TEMP 97.7; O2SAT 97
[2024-02-03] MEDS ORDERED: CELE1CAP4 PO (18:14)
[2024-02-03] MEDS: CelecoXIB (CeleBREX) 100 MG CAP PO ONE (18:42)
== END 2024-02-03 18:57 | disposition home or self-care (01) ==
LOC: M ED 15:50
DX: M79.642 Pain in left hand (principal); I10 Essential (primary) hypertension; E11.9 Type 2 diabetes mellitus without complications; G35 Multiple sclerosis; R20.2 Paresthesia of skin; Z79.4 Long term (current) use of insulin; Z79.899 Other long term (current) drug therapy; Z91.041 Radiographic dye allergy status; Z91.012 Allergy to eggs; Z88.0 Allergy status to penicillin; Z88.2 Allergy status to sulfonamides; Z88.8 Allergy status to other drugs, medicaments and biological substances; Z88.1 Allergy status to other antibiotic agents; Z91.013 Allergy to seafood; Z88.5 Allergy status to narcotic agent; Z91.040 Latex allergy status; Z88.7 Allergy status to serum and vaccine

== ENCOUNTER 2024-03-12 07:53 | Outpatient (CLI) | payer OTHER ==
[2024-03-12] VITALS (7 sets, daily range): BP systolic 111–144; BP diastolic 51–88; O2SAT 95–98
[~2024-03-12] VITALS: Ht 160 cm; Wt 63.5 kg
[~2024-03-12 07:53] MED LIST changes: +CELE1CAP4 PO; -CYCL5TAB PO; +CYCL5TAB4 PO
[2024-03-12] MEDS ORDERED: methylPREDNISolone 125MG 2ML VIAL IV ONE (08:30)
[2024-03-12] MEDS ORDERED: ACETAMINOPHEN 325 MG TAB PO ONE (08:30)
[2024-03-12] MEDS: diphenhydrAMINE 25MG CAP PO ONE (08:30)
[2024-03-12] MEDS: OCRELIZUMAB 600 MG in NS 500 ML IV ONE (09:40)
== END 2024-03-12 13:55 | disposition home or self-care (01) ==
LOC: M INFU 07:53
PROVIDERS: ATTEND Psychiatry & Neurology Neurology
DX: G35 Multiple sclerosis (principal); Z91.041 Radiographic dye allergy status; Z88.0 Allergy status to penicillin; Z88.2 Allergy status to sulfonamides; Z88.1 Allergy status to other antibiotic agents; Z88.8 Allergy status to other drugs, medicaments and biological substances; Z88.5 Allergy status to narcotic agent; Z91.040 Latex allergy status; Z88.7 Allergy status to serum and vaccine
CPT/HCPCS: 96365; 96366; J2350

== ENCOUNTER → 2024-04-09 | Outpatient (CLI) | payer OTHER | LOC: M SOG 14:26 | PROVIDERS: ATTEND Physician Assistant | DX: M79.642 Pain in left hand (principal) ==

== ENCOUNTER 2024-08-24 08:17 | Outpatient (CLI) | payer OTHER ==
[~2024-08-24] VITALS: Ht 160 cm; Wt 59.1 kg
[2024-08-24 08:30] VITALS: BP 129/65; O2SAT 100
[2024-08-24] MEDS: diphenhydrAMINE 25MG CAP PO ONE (08:38)
[2024-08-24] MEDS: ACETAMINOPHEN 325 MG TAB PO ONE (08:38)
[2024-08-24] MEDS: methylPREDNISolone 125MG 2ML VIAL IV ONE (08:38)
[2024-08-24] MEDS: OCRELIZUMAB 600 MG in NS 500 ML IV ONE (09:23)
[2024-08-24 10:00] VITALS: BP 135/69; O2SAT 97
[2024-08-24 10:30] VITALS: BP 135/69; O2SAT 99
[2024-08-24 11:00] VITALS: BP 133/81; O2SAT 100
[2024-08-24 11:30] VITALS: BP 142/71; O2SAT 96
[2024-08-24 13:10] VITALS: BP 154/76; O2SAT 98
== END 2024-08-24 13:10 | disposition home or self-care (01) ==
LOC: M INFU 08:17
PROVIDERS: ATTEND Psychiatry & Neurology Neurology
DX: G35 Multiple sclerosis (principal); Z88.0 Allergy status to penicillin; Z88.2 Allergy status to sulfonamides; Z88.1 Allergy status to other antibiotic agents; Z88.8 Allergy status to other drugs, medicaments and biological substances; Z91.041 Radiographic dye allergy status; Z88.5 Allergy status to narcotic agent; Z91.040 Latex allergy status; Z88.7 Allergy status to serum and vaccine
CPT/HCPCS: 96365; 96375; J2350; J2919

== ENCOUNTER 2024-12-01 11:38 | Emergency (ER) | payer OTHER ==
[~2024-12-01] VITALS: Ht 160 cm; Wt 60.4 kg
[~2024-12-01 11:38] MED LIST changes: +HYDR-3364 PO; -HYDR-4570 PO
[2024-12-01] MEDS: MORPHINE 4 MG/ML 1 ML VIAL IM ONE (12:55)
[2024-12-01] MEDS ORDERED: METH-1164 PO (14:48)
[2024-12-01 15:05] VITALS: BP 168/75; TEMP 97.1; O2SAT 98
== END 2024-12-01 15:18 | disposition home or self-care (01) ==
LOC: M ED 11:38
DX: S33.5XXA Sprain of ligaments of lumbar spine, initial encounter (principal); W01.0XXA Fall on same level from slipping, tripping and stumbling without subsequent striking against object, initial encounter; Y92.009 Unspecified place in unspecified non-institutional (private) residence as the place of occurrence of the external cause; Y93.9 Activity, unspecified; Y99.9 Unspecified external cause status

== ENCOUNTER 2025-02-26 03:55 | Emergency (ER) | payer OTHER ==
[~2025-02-26] VITALS: Ht 160 cm; Wt 60.0 kg
[~2025-02-26 03:55] MED LIST changes: +METH-1164 PO
[2025-02-26 04:41] LABS: VENOUS BASE EXCESS -2.2 (-2.0-2.0); VENOUS HCO3 23.7 MMOL/L (23.0-27.0); VENOUS O2 SATURATION 89.3 % (60.0-80.0); VENOUS PARTIAL PRESSURE CO2 44.9 mmHg (38.0-50.0); VENOUS PARTIAL PRESSURE O2 55.4 mmHg (30.0-50.0); VENOUS PH 7.341 UNITS (7.330-7.430); VENOUS STANDARD HCO3 22.4 MMOL/L; VENOUS TOTAL CO2 25.1 MMOL/L (24.0-28.0)
[2025-02-26 04:47] LABS: BASO # 0.1 10^3/uL (0.0-0.2); BASO % 0.7 % (0.0-1.0); EOS # 0.1 10^3/uL (0.0-0.5); EOS % 1.0 % (0.0-3.0); LYMPH # 1.0 10^3/uL (1.5-5.0); LYMPH % 8.8 % (24.0-44.0); MONO # 1.1 10^3/uL (0.0-0.8); MONO % 9.2 % (2.0-8.0); NEUTROPHILS # 9.2 10^3/uL (1.5-8.5); NEUTROPHILS % 80.0 % (36.0-66.0); PLATELET COUNT, AUTOMATED 256 10^3/uL (150-450)
[2025-02-26] MEDS: NS (Normal Saline) 0.9% 1,000 ML IV ONE (05:45)
[2025-02-26 05:57] LABS: KETONE, URINE AUTO RFX TRACE mg/dL (NEGATIVE); MUCUS, URINE RFX SMALL (NEGATIVE); NITRITE, URINE AUTO RFX NEGATIVE (NEGATIVE); RBC, URINE AUTO RFX TNTC /HPF (0-3); SQUAM EPITHELIAL CELL UR AURFX 0 /HPF (0-6)
[2025-02-26 06:00] LABS: LEUKOCYTE ESTERASE UR AUTO RFX 3+ (NEGATIVE); WBC, URINE AUTO RFX TNTC /HPF (0-3)
[2025-02-26] MEDS: ACETAMINOPHEN *IV* 1,000 MG in IV 1 EA IV ONE (06:06)
[2025-02-26 06:13] LABS: ALT/SGPT 20 U/L (7.0-40); AST/SGOT 33 U/L (<34); CALCIUM LEVEL 8.1 MG/DL (8.3-10.6); CARBON DIOXIDE LEVEL 26 MMOL/L (20-31); CHLORIDE LEVEL 104 MMOL/L (98-107); CREATININE FOR GFR 0.67 MG/DL (0.55-1.30); GLOMERULAR FILTRATION RATE > 90.0 (>45); POTASSIUM SERUM 4.6 MMOL/L (3.5-5.1); SODIUM LEVEL 139 MMOL/L (136-145)
[2025-02-26] MEDS: CEFDINIR 300 MG CAP PO ONE (06:31)
[2025-02-26] MEDS ORDERED: CEFD300C PO (06:35)
[2025-02-26] MEDS ORDERED: ALB2.5NEB NEB (06:42)
[2025-02-26 07:35] VITALS: BP 136/60; TEMP 98.9; O2SAT 95
== END 2025-02-26 08:07 | disposition home or self-care (01) ==
LOC: M ED 03:55 → EDBD 03:55 → M ED 08:07
DX: J44.1 Chronic obstructive pulmonary disease with (acute) exacerbation (principal); J06.9 Acute upper respiratory infection, unspecified; N39.0 Urinary tract infection, site not specified; I25.2 Old myocardial infarction; E11.9 Type 2 diabetes mellitus without complications; I10 Essential (primary) hypertension; J45.909 Unspecified asthma, uncomplicated; E78.5 Hyperlipidemia, unspecified; G43.909 Migraine, unspecified, not intractable, without status migrainosus; G35.D Multiple sclerosis, unspecified; Z95.5 Presence of coronary angioplasty implant and graft; Z79.4 Long term (current) use of insulin; Z79.899 Other long term (current) drug therapy; Z88.0 Allergy status to penicillin; Z88.1 Allergy status to other antibiotic agents; Z88.2 Allergy status to sulfonamides; Z91.013 Allergy to seafood; Z88.5 Allergy status to narcotic agent; Z91.040 Latex allergy status; Z91.0120 Allergy to eggs, unspecified; Z88.7 Allergy status to serum and vaccine; Z88.8 Allergy status to other drugs, medicaments and biological substances
CPT/HCPCS: 36415; 71045; 80048; 80076; 81001; 82803; 83605; 83880; 85025; 87088; 87186; 87486; 87581; 87633; 87798; 93005; 93041; 94760; 96365; 96366; 99285; J0134

== ENCOUNTER 2025-04-13 08:41 | Outpatient (CLI) | payer OTHER ==
[~2025-04-13] VITALS: Ht 160 cm; Wt 60.9 kg
[2025-04-13] VITALS (7 sets, daily range): BP systolic 132–140; BP diastolic 65–76; O2SAT 96–98
[~2025-04-13 08:41] MED LIST changes: +ACETAMINOPHEN 325 MG TAB PO ONE; +ACETAMINOPHEN 650MG PO PRIOR TO INFUSION PO ONE; +ALB2.5NEB NEB; +ALBUTEROL SULFATE 2.5 MG/0.5 ML INH CONCENTRATE NEB SOLN INH PRN; +CEFD300C PO; +EPINEPHrine INJ 1 MG/ML 1ML AMP IM PRN; +NS IV ONE; +OCRELIZUMAB 600 MG in NS 500 ML IV ONE; +OCRELIZUMAB IV ONE; +diphenhydrAMINE 25MG PO PRIOR TO INFUSION PO ONE; +diphenhydrAMINE 50 MG/ML VIAL IV PRN
[2025-04-13] MEDS: ACETAMINOPHEN 325 MG TAB PO ONE (08:58)
[2025-04-13] MEDS: OCRELIZUMAB 600 MG in NS 500 ML IV ONE (09:44)
== END 2025-04-13 12:20 ==
LOC: M INFU 08:41
PROVIDERS: ATTEND Psychiatry & Neurology Neurology
DX: G35.A Relapsing-remitting multiple sclerosis (principal); Z88.0 Allergy status to penicillin; Z88.1 Allergy status to other antibiotic agents; Z88.2 Allergy status to sulfonamides; Z88.8 Allergy status to other drugs, medicaments and biological substances; Z91.041 Radiographic dye allergy status; Z88.5 Allergy status to narcotic agent; Z91.040 Latex allergy status; Z88.7 Allergy status to serum and vaccine
CPT/HCPCS: 96365; 96366; 96375; J2350; J2919